=== PATIENT | female | born 1970 | race Caucasian/White ===

== ENCOUNTER 2021-11-03 18:14 | Emergency (ER) | payer BC, SELFPAY ==
[2021-11-03 18:24] VITALS: BP 168/107; PULSE 71; RESP 16; TEMP 36.4; O2SAT 100
--- NOTE | 2021-11-03 18:50 | ED.GENADULT ---
HPI - General Adult General Chief complaint: Nausea/Vomiting/Diarrhea Stated complaint: vomiting,nausea Source: patient Mode of arrival: ambulatory Limitations: no limitations History of Present Illness HPI narrative: Patient presents for evaluation of nausea and vomiting for the last 2 days. She states that she feels a bit dizzy while vomiting but denies dizziness otherwise. She denies any fever, chills, abdominal pain, urinary symptoms, respiratory symptoms, headache, body aches, diarrhea. No recent new foods or abx. No recent sick contacts to her knowledge. She has received a flu shot this year. No ETOH or illicit drug use. No additional complaints or concerns. She states that she simply would like an injection of medication to assist with nausea. She does not wish to have any tests or other interventions performed. Related Data Allergies Allergy/AdvReac Type Severity Reaction Status Date / Time prochlorperazine Allergy Intermediate facial Verified 11/03/21 18:31 [From Compazine] swelling Review of Systems Review of Systems: CONSTITUTIONAL: Denies fever, chills, or sweats. EYES: Denies visual changes, redness, or discharge. ENT: Denies rhinorrhea, congestion, sore throat, or otalgia. CARDIOVASCULAR: Denies chest pain, palpitations, or edema. RESPIRATORY: Denies cough or dyspnea. GASTROINTESTINAL: Reports nausea and vomiting. Denies abdominal pain or diarrhea. GENITOURINARY: Denies dysuria or hematuria. SKIN: Denies rash or itching. MUSCULOSKELETAL: Denies back pain, joint pain, or myalgia. NEUROLOGIC: Reports dizziness. Denies headache, numbness, or weakness. PSYCHIATRIC: Denies anxiety or depression. [facility] Past Medical History Medical History Connective tissue disease GERD (gastroesophageal reflux disease) Hypertension Psoriasis Sjogren's syndrome Surgical History Surgical History History of appendectomy Family History Family History Father , [place] 2018 Acute myocardial infarction Hypertension Mother Fibromyalgia Hypothyroidism Social History Social History Smoking status: Never smoker Alcohol intake: current Alcohol use details: less than 1 drink per week Substance use: never Living arrangements: with family Gender identity (if verbalized by the patient): Female Sexual Orientation (if Verbalized by the Patient): Straight or Heterosexual Spiritual care concerns: No Exam Narrative: GENERAL: Well-appearing, well-nourished, and in no acute distress. HEAD: Normocephalic, atraumatic. EYES: PERRLA and EOMI. ENT: Nares clear, no rhinorrhea or epistaxis. Mucous membranes moist. Oropharynx without tonsillar hypertrophy exudate or other lesions. Bilateral TMs pearly knox nonbulging NECK: Supple. No adenopathy or masses. No carotid bruits or JVD CHEST: Clear to auscultation. No respiratory distress. No wheezes rales or rhonchi HEART: Regular rate and rhythm. No murmur heard. Normal peripheral pulses. ABDOMEN: Soft, nontender, nondistended, normal active bowel sounds. EXTREMITIES: Normal range of motion. No edema. SKIN: Warm, dry, no rash. NEURO: No focal deficits. Alert and oriented x3. PSYCH: Normal mood and affect. Course Course Emergency Course: This is a 51-year-old female who present with complaints of nausea and vomiting. I offered to check influenza testing, which she declined. She not feel like she needed any other diagnostics performed. She was given an injection of Zofran. Her symptoms resolved. She was able to eat ice chips and requested dc papers. I did offer to send her to ER for lab studies, which she declined. She would like to go home. This seems reasonable as she appears quite well. We will have her follow up o
[2021-11-03] MEDS: ONDANSETRON INJ 4 MG/2 ML VIAL IM (19:03)
== END 2021-11-03 19:38 | disposition home or self-care (01) ==
PROVIDERS: Emergency Provider Nurse Practitioner; PCP Internal Medicine
DX: R11.2 Nausea with vomiting, unspecified (principal); K21.9 Gastro-esophageal reflux disease without esophagitis; I10 Essential (primary) hypertension; M35.00 Sjogren syndrome, unspecified; M35.9 Systemic involvement of connective tissue, unspecified
CPT/HCPCS: 96372; 99213; G0463; J2405

== ENCOUNTER 2021-11-04 10:19 | Inpatient (IN) | payer BC, SELFPAY ==
[2021-11-04] VITALS (12 sets, daily range): BP systolic 138–173; BP diastolic 88–126; PULSE 83–92; RESP 16–23; TEMP 35.9–36.4; O2SAT 97–100; BMI 43.0
--- NOTE | ~2021-11-04 | XR_ITS ---
XR chest 2V DATE: 11/07/2021 14:03 INDICATION: Shortness of breath TECHNIQUE: PA and lateral views COMPARISON: None FINDINGS: There is cardiomegaly. There is dominance of the minor and greater fissures, suggesting sub pleural edema. Subtle Lalo B-lines are suggested which may indicate pulmonary interstitial edema. There is minimal if any pleural effusion. No pulmonary infiltrate or consolidation. No pneumothorax. There is mild dextro scoliosis of the thoracic spine. Diffuse osteopenia. IMPRESSION: Cardiac megaly, mild pulmonary interstitial and subpleural edema Reviewed, dictated and finalized at location A.
--- NOTE | ~2021-11-04 | CT_ITS ---
EXAMINATION: CT brain wo con DATE: 11/07/2021 14:11 INDICATION: Hyponatremia. Dizziness. TECHNIQUE: Computed tomography (CT) of the head was performed without intravenous contrast. The mA wa s adjusted according to patient size. Iterative reconstruction technique was employed. The dose-lengt h product was 605.33 mGy-cm. COMPARISON: None FINDINGS: There is no intracranial hemorrhage, acute infarction, or abnormal intracranial mass lesion . The ventricles are normal in size. There is mild mucosal thickening in the ethmoid sinuses. There i s a small right mastoid effusion. The orbits are normal. IMPRESSION: 1. Normal brain. Reviewed, dictated and finalized at location A. IMPRESSION: 1. Normal brain.
--- NOTE | 2021-11-04 10:38 | ECG_ITS ---
Measurements Intervals [place] Rate: 82 P: 22 AL: 184 QRS: 7 QRSD: 98 T: 16 QT: 403 QTc: 473 Interpretive Statements SINUS RHYTHM NORMAL ECG NO PREVIOUS ECG AVAILABLE FOR COMPARISON Electronically Signed On 11-04-2021 15:44:05 CDT by Giovani Benson M.D.
[2021-11-04 11:08] LABS: Alanine Aminotransferase 26 U/L (4-35); Alkaline Phosphatase 85 U/L (38-126); Anion Gap 9 mmol/L (8-16); Aspartate Amino Transferase 48 U/L (14-36); Bilirubin,Total 1.5 mg/dL (0.2-1.3); Blood Urea Nitrogen 5 mg/dL (7-17); Calcium 7.5 mg/dL (8.4-10.2); Carbon Dioxide 19 mmol/L (22-30); Chloride 73 mmol/L (98-107); Estimated CRCL calculation 160 ml/min; Estimated Glomerular Filt Rate > 60; Glucose 106 mg/dL (65-110); Potassium 4.4 mmol/L (3.4-5.0); Sodium 101 mmol/L (137-145)
--- NOTE | 2021-11-04 13:05 | ED.RECABL ---
HPI - Recheck/Abnormal Lab/Rx General Chief Complaint: Recheck/Abnormal Lab/Rx Stated Complaint: high sodium level Time Seen by Provider: 11/04/21 12:30 Source: patient and RN notes reviewed Mode of arrival: ambulatory Limitations: no limitations History of Present Illness HPI narrative: This is a 51 year old female with history of hypertension, connective tissue disease, Sj?gren, obesity who presents for evaluation of hyponatremia. Patient was evaluated by her PCP on Thursday as routine check up and she has labs drawn. She denies nausea and vomiting on Thursday and she was evaluated in UC. Patient was prescribed antiemetic but she has continued to have nausea. She was called this morning by her PCP and she was told her sodium was 121. She was referred to ER for evaluation. She reports dizziness. She denies chest pain, cough, abdominal pain, fever or diarrhea. She reports having low sodium years ago and she was told it was due to some medications. Adjustments were made to her medication at that time and she has not had any issues since. Last bowel movement was 2 days ago. Related Data Allergies Allergy/AdvReac Type Severity Reaction Status Date / Time prochlorperazine Allergy Intermediate facial Verified 11/03/21 18:31 [From Compazine] swelling Review of Systems Review of Systems: All systems reviewed & are unremarkable except as noted in HPI and below PMFSH Past Medical History Medical History Connective tissue disease GERD (gastroesophageal reflux disease) Hypertension Psoriasis Sjogren's syndrome Surgical History Surgical History History of appendectomy Family History Family History Father , [place] 2018 Acute myocardial infarction Hypertension Mother Fibromyalgia Hypothyroidism Social History Social History Smoking status: Never smoker Alcohol intake: current Alcohol use details: less than 1 drink per week Substance use: never Gender identity (if verbalized by the patient): Female Sexual Orientation (if Verbalized by the Patient): Straight or Heterosexual Spiritual care concerns: No Exam Const: General: no acute distress and alert Orientation/consciousness: patient oriented x3 Eyes: EOM: EOMs intact bilaterally Resp: Effort & Inspection: normal respiratory effort and no retractions Auscultation: clear to auscultation bilaterally Cardio: Rate: regular rate Rhythm: regular rhythm Heart sounds: no murmurs GI: Inspection: distended GI Palp: Yes Soft to palpation, No Tenderness to palpation present (GI) and No Guarding due to palpation present (GI) Auscultation: normal bowel sounds Skin: General skin exam: normal color Other: petechial rash to extremities and abdomen Neuro: General: patient oriented x3, moves all extremities and CN's II-XI intact bilaterally Extrem: General: normal to inspection Psych: Mental Status: mental status grossly normal Affect: normal affect Course Reevaluation(s) Reevaluation #1: I discussed with patient that she will be admitted to hospital. Date: 11/04/21 Time: 15:00 Consultations Consultation #1: I discussed case with Dr. West who agrees to consult on patient. Date: 11/04/21 Time: 14:24 Consultation #2: I Discussed case with Bonnie verdugo who accepts patient to hospitalist service in IMU. Date: 11/04/21 Time: 14:30 Vital Signs Vital signs: Vital Signs Temperature 96.6 F L 11/04/21 10:39 Pulse Rate 83 11/04/21 10:39 Respiratory Rate 16 11/04/21 10:39 Blood Pressure 173/107 H 11/04/21 10:39 Pulse Oximetry 100 11/04/21 10:39 Temperature 96.6 F L 11/04/21 10:39 Pulse Rate 83 11/04/21 16:38 Respiratory Rate 23 H 11/04/21 16:38 Blood Pressure 173/1
[2021-11-04] MEDS: ONDANSETRON INJ 4 MG/2 ML VIAL IV PUSH ×2 (13:34→17:52)
[2021-11-04] MEDS: SODIUM CHLORIDE 0.9% IV 1,000 ML 999 ML IV CONT ×2 (13:35→15:36)
[2021-11-04 14:10] LABS: Basophils Percent Auto 0.4 % (0.2-1.2); Eosinophils Percent Auto 0.1 % (0-4.4); Hematocrit 28.3 % (37.0-47.0); Hemoglobin 11.1 g/dL (12.0-15.0); Immature Granulocyte Absolute 0.28 K/mm3 (0.00-0.031); Immature Granulocyte Percent A 3.7 % (0-0.5); Immature Platelet Fraction Pct 1.7 % (0.9-11.2); Lymphocytes Absolute Auto 0.42 K/mm3 (0.9-3.2); Lymphocytes Percent Auto 5.5 % (18.3-44.2); Mean Corpuscular HGB Conc 39.2 g/dl (32-36); Mean Corpuscular Volume 89.3 fl (80-100); Mean Platelet Volume 9.3 fl (7.4-10.4); Monocytes Absolute Auto 0.4 K/mm3 (0.1-0.6); Monocytes Percent Auto 5.1 % (2.6-8.5); Neutrophils Absolute Auto 6.5 K/mm3 (1.3-6.7); Neutrophils Percent Auto 85.2 % (45.5-73.1); Platelet Count Result 265 k/mm3 (150-375); Red Blood Count 3.17 M/mm3 (4.2-5.4); Red Cell Distribution Width 11.4 % (11.5-14.5); White Blood Count 7.7 K/mm3 (4.5-10.0)
[2021-11-04 14:18] LABS: Anion Gap 9 mmol/L (8-16); Blood Urea Nitrogen 5 mg/dL (7-17); Calcium 7.8 mg/dL (8.4-10.2); Carbon Dioxide 22 mmol/L (22-30); Chloride 71 mmol/L (98-107); Estimated CRCL calculation 131 ml/min; Estimated Glomerular Filt Rate > 60; Glucose 98 mg/dL (65-110); Lipase 211 U/L (23-300); Magnesium 1.6 mg/dL (1.6-2.3); Potassium 4.1 mmol/L (3.4-5.0); Sodium 102 mmol/L (137-145)
[2021-11-04 15:02] LABS: Appearance Urine Clear (Clear); Bilirubin Urine Negative (Negative); Blood Urine Trace-lysed (Negative); Color Urine Yellow (Yellow); Glucose Urine UA Negative (Negative); Ketones Urine 3+ mg/dL (Negative); Leukocyte Esterase Ur Negative LEU/UL (Negative); Nitrate Urine Negative (Negative); Protein Urine 1+ mg/dL (Negative); Squamous Epithelial Cell Urine Rare /hpf (Few); Urobilinogen Urine >=8.0 mg/dL (<2.0); WBC Urine 0-3 /hpf
[2021-11-04 15:04] LABS: Add Urine Microscopic? YES
[2021-11-04 15:18] LABS: Creatinine Urine 39.5 mg/dL
[2021-11-04 15:19] LABS: Sodium Urine Random 96 meq/L
--- NOTE | 2021-11-04 16:00 | PM.IMHP ---
H&P: HPI History of Present Illness Date/Time: 11/04/21 16:00 Chief Complaint: Low sodium level. Narrative: This is a 51-year-old female with Sjogren syndrome, connective tissue disease, hypertension, depression, and history of alcohol abuse who presented to the emergency department via private vehicle for evaluation after she was found to have a low sodium level on labs drawn last Thursday. She moved here from [place] in the last several weeks and had a new patient appointment with Felipa Bernard NP on October 30. At that appointment she mentioned having nausea and emesis once a day, nearly every day for at least 3 to 6 months. Several labs were drawn at that time and she received a phone call today that her sodium level was low (121) and she was told to come to the ER where her sodium level was confirmed to be 101. She was hospitalized several years ago with hyponatremia which was felt to be due to ?a combination of medications? and with adjustments that reportedly normalized. Both the patient and her have noticed that she has seemed a little confused the last several days and seems to be processing information more slowly than usual. She continues to have intermittent nausea but she has not vomited today though she attributes that to Zofran which she received yesterday when she went to urgent care (at which time it should be noted that she declined further workup, including labs). Due to her Sjogren's she drinks at least 15, 8 oz glasses of water a day and she even gets up at night to drink water. She has a history of alcoholism and has had periods of sobriety up to nearly 10 years though she admits that within the last several weeks she has been drinking up to 12 [place] a day. Additionally she has not been eating much due to her nausea and probably due to excess calories that she is getting in her alcohol. She has been on venlafaxine for many years though her dose was increased from 75 mg to 150 mg about a week ago. At the time my evaluation she has no specific complaints aside from the fact that she is thirsty. Review of Systems Review of Systems: Twelve systems were reviewed. Patient reports the history of seizure many years ago, last being about 6 to 7 years ago. Apparently she was on anti seizure medications in the past; she denies that they were related to alcohol withdrawal. She does have a history of alcohol withdrawal symptoms however to include tremors, sweats, and mild confusion however she has not had any of those over the last 2 days, with her last drink being 2 days ago on Thursday. No fever, chills, or sweats. No recent cold or flu symptoms. She has noticed a mild decrease in urine output. She has been getting a bit lightheaded, especially with position changes last couple of days. No dysuria. No diarrhea. No dark stools. Patient has likely sleep apnea with heavy snoring and witnessed apneic episodes as well as daytime somnolence. She is set up for a sleep study in the coming weeks. No myalgias or arthralgias. She denies rash however was noted to have petechiae and coalescing petechiae on the lower legs which she states has been an issue for her off and on over the years and she was told that is related to her autoimmune disease. Except as documented, all other systems were reviewed and are negative. [facility] Past Medical History Medical History (Updated 11/04/21 @ 21:10 by Bonnie Munguia PA-C) Alcohol abuse Connective tissue disease Gastroesophageal reflux disease Hypertension Psoriasis Sjogren's syndrome Suspected sleep apnea Surgical History Surgical History History of appendectomy Family History Family History Father , 2017 Acute myocardial infarction Hypertension Mother Fibromyalgia Hypothyroidism Social History Social History (Updated 11/04/21 @ 20:55 by Bonnie Munguia PA-C) Social
--- NOTE | 2021-11-04 16:55 | PC.NURSE ---
This patient, Meri Vincent, was admitted to IMU status, and placed in Intensive Care Unit-6. Patient/family oriented to hospital policies and general routines including ID bracelet, bed and alarms, visiting hours, pain management, procedures, bathroom and other care routines, personal items, smoking policy, room service/diet, and visiting hours. Valuables list has been completed. Information on how to activate the Rapid Response Team has been discussed. Patient/Family are encouraged to report perceived risks to care and to ask questions if they do not understand what they are told or what they should do.
--- NOTE | 2021-11-04 16:56 | PM.CNNEP ---
Assessment and Plan Assessment and plan (1) Hyponatremia: Code(s): E87.1 - Hypo-osmolality and hyponatremia Status: Acute Assessment and Plan: acute versus acute on chronic?? follow serum sodium levels follow-up on urine electrolytes as well as urine/serum osmolality check TSH and cortisol as well as SPE/UPE suspect will eventually need free water restriction depending on trend of sodium, suspect use/need for 3% saline goal of therapy is a rate of change of 4 - 6 mmol/L in 24 hours (but not to exceed 8mmol/L) follow mentation/neurological status closely (2) Nausea & vomiting: Code(s): R11.2 - Nausea with vomiting, unspecified Status: Acute Assessment and Plan: secondary to #1(?) treat supportively (3) Hypertension: Code(s): I10 - Essential (primary) hypertension Status: Chronic Assessment and Plan: resume home medications follow trend Will continue to follow. History of Present Illness Reason for Consult Consult date: 11/04/21 Reason for consult: hyponatremia Chief Complaint Chief complaint: Dehydration, Hyponatremia History of Present Illness Narrative: The patient is a 51-year-old female with a past medical history as outlined below who presented to [facility] Emergency room for further evaluation of hyponatremia in association with nausea and vomiting. The patient recently established care with a new primary care physician since she moved to this area several weeks ago. During that office visit, she men's [place] and persistent nausea and vomiting for the last 3 - 6 months without a clear etiology. Routine blood tests were drawn on that office visit and the patient received a phone call today stating that her sodium level was low at 121 millimoles per L and she was instructed to come to the ER for further evaluation. Upon presentation to the emergency room, the patient was otherwise hemodynamically stable and repeat labs were drawn which showed her sodium level to be at 101 mmol/L. Presumably, her symptoms of nausea and vomiting for last several months related to her ongoing hyponatremia although it is not entirely clear. Upon further questioning, the patient states that she had an episode of hyponatremia similar to this approximately 4 years ago that was blamed on a combination of medications that she was taking which apparently stabilized with better management of her chronic medications. Along with the a for mentioned nausea and vomiting, the patient states that she has noticed herself to be a little bit more confused and somewhat delayed and processing simple things that she should be able to do without any issues or problems in general. Further complicating matters is that she is a heavy water drinker as due to her situation syndrome, she always feels her mouth to be somewhat dry. She also has a history of alcohol abuse and had been sober for 10 years but in the last few weeks has been drinking quite heavily. This is further complicated by the fact that she has not been eating much either. Other risk factors for hyponatremia include the use of an SSRI which was recently increased about a week ago as well. In spite of the severe hyponatremia, she otherwise appears to be neurologically intact and in no acute distress. Given this laboratory abnormality, she was admitted to the hospital for further evaluation and treatment Renal consultation was requested due to her severe hyponatremia. As mentioned, and as noted above, she has multiple risk factors for hyponatremia included excess free water intake, recent alcohol intake, increased dose of an SSRI, possibly complicated by volume depletion/ dehydration. She did receive a couple of L of IV fluids in the emergency room but subsequent Sodium testing has showed minimal improvement despite this intervention. I am not entirely clear what occurred approximately 4 years ago that caused her hyponatremia b
[2021-11-04 17:29] LABS: Creatinine Urine 32.7 mg/dL
[2021-11-04 17:51] LABS: Glucose Point of Care 91 mg/dl (65-105)
[2021-11-04] MEDS: SODIUM CHLORIDE 0.9% IV 1,000 ML 125 ML IV CONT (17:52)
[2021-11-04 18:57] LABS: Sodium 103 mmol/L (137-145)
[2021-11-04 19:50] LABS: Glucose Point of Care 109 mg/dl (65-105)
[2021-11-04 20:04] LABS: Sodium 102 mmol/L (137-145)
--- NOTE | 2021-11-04 20:23 | PC.NURSE ---
Faxed request for medical records to [facility], [facility]. .
[2021-11-04] MEDS: chlordiazePOXIDE (*CRX) 25 MG CAPSULE PO (20:57)
[2021-11-04 21:03] LABS: Hemoglobin A1C 4.7 % (<5.7)
[2021-11-04] MEDS: SALIVA SUBSTITUTE COMBO RINSE 237 ML BOTTLE 15 ML PO (21:06)
[2021-11-04] MEDS: ACETAMINOPHEN 325 MG TABLET 650 MG PO (21:41)
[2021-11-04] MEDS: METOPROLOL SUCCINATE EXT REL 100 MG TABCR PO (21:42)
[2021-11-04] MEDS: LOSARTAN POTASSIUM 100 MG TABLET PO (21:42)
[2021-11-04] MEDS: THIAMINE HCL 200 MG/2 ML VIAL 100 MG IV PUSH (21:42)
[2021-11-04 22:35] LABS: Sodium 104 mmol/L (137-145)
[2021-11-04 22:37] LABS: INR 1.2; Prothrombin Time 14.8 Seconds (11.1-14.7)
[2021-11-04 22:38] LABS: Partial Thromboplastin Time 32.5 SECONDS (22.3-36.8)
[2021-11-05] VITALS (18 sets, daily range): BP systolic 132–159; BP diastolic 89–108; PULSE 68–90; RESP 14–18; TEMP 35.8–36.8; O2SAT 97–100
[2021-11-05] MEDS: ONDANSETRON INJ 4 MG/2 ML VIAL IV PUSH (00:49)
[2021-11-05] MEDS: LORazepam INJ (*CRX) 2 MG/ML VIAL 1 MG IV PUSH ×3 (00:50→21:27)
[2021-11-05 01:24] LABS: Sodium 104 mmol/L (137-145)
[2021-11-05 04:41] LABS: Basophils Percent Auto 0.4 % (0.2-1.2); Eosinophils Percent Auto 0.4 % (0-4.4); Hematocrit 28.8 % (37.0-47.0); Hemoglobin 11.2 g/dL (12.0-15.0); Immature Granulocyte Absolute 0.13 K/mm3 (0.00-0.031); Immature Granulocyte Percent A 1.7 % (0-0.5); Lymphocytes Absolute Auto 0.41 K/mm3 (0.9-3.2); Lymphocytes Percent Auto 5.4 % (18.3-44.2); Mean Corpuscular Hemoglobin 34.7 pg (26-34); Mean Corpuscular Volume 89.2 fl (80-100); Mean Platelet Volume 8.8 fl (7.4-10.4); Monocytes Absolute Auto 0.4 K/mm3 (0.1-0.6); Monocytes Percent Auto 5.8 % (2.6-8.5); Neutrophils Absolute Auto 6.5 K/mm3 (1.3-6.7); Neutrophils Percent Auto 86.3 % (45.5-73.1); Platelet Count Result 224 k/mm3 (150-375); Red Blood Count 3.23 M/mm3 (4.2-5.4); Red Cell Distribution Width 11.3 % (11.5-14.5); White Blood Count 7.6 K/mm3 (4.5-10.0)
[2021-11-05] MEDS: chlordiazePOXIDE (*CRX) 25 MG CAPSULE PO (05:06)
[2021-11-05 05:10] LABS: Alanine Aminotransferase 24 U/L (4-35); Albumin Level 3.4 g/dL (3.5-5.1); Alkaline Phosphatase 80 U/L (38-126); Anion Gap 7 mmol/L (8-16); Aspartate Amino Transferase 44 U/L (14-36); Bilirubin,Total 1.6 mg/dL (0.2-1.3); Blood Urea Nitrogen 5 mg/dL (7-17); Calcium 7.1 mg/dL (8.4-10.2); Carbon Dioxide 21 mmol/L (22-30); Chloride 77 mmol/L (98-107); Estimated CRCL calculation 133 ml/min; Estimated Glomerular Filt Rate > 60; Glucose 88 mg/dL (65-110); Magnesium 1.7 mg/dL (1.6-2.3); Phosphorus 2.3 mg/dL (2.5-4.5); Potassium 3.5 mmol/L (3.4-5.0); Sodium 105 mmol/L (137-145)
[2021-11-05 05:57] LABS: Mean Corpuscular HGB Conc 38.9 g/dl (32-36)
[2021-11-05 07:33] LABS: Sodium 105 mmol/L (137-145)
[2021-11-05] MEDS: SODIUM CHLORIDE 3% 500 ML 75 ML IV CONT (08:52)
[2021-11-05] MEDS: THIAMINE HCL 100 MG TABLET PO (08:56)
[2021-11-05] MEDS: METOPROLOL SUCCINATE EXT REL 100 MG TABCR PO (08:57)
[2021-11-05] MEDS: FOLIC ACID 1 MG TABLET PO (08:57)
[2021-11-05] MEDS: PANTOPRAZOLE 40 MG TABLET PO (08:57)
[2021-11-05] MEDS: LOSARTAN POTASSIUM 100 MG TABLET PO (08:58)
--- NOTE | 2021-11-05 11:49 | PM.PNNEP ---
Progress Note: A&P Assessment and Plan (1) Hyponatremia: Code(s): E87.1 - Hypo-osmolality and hyponatremia Status: Acute Assessment and Plan: acute versus acute on chronic?? multifactorial etiology: excessive free water intake (constant dry mouth from Sjogren's syndrome) relapse on alcohol intake/alcoholism SSRI use (venlafaxine dose was recently increased) previous history follow serum sodium levels urine electrolytes non-prerenal TSH okay; cortisol lowish - check stimulation test follow-up on urine/serum osmolality as well as SPE/UPE start free water restriction use 3% saline PRN to help improve sodium level goal of therapy is a rate of change of 4 - 6 mmol/L in 24 hours (but not to exceed 8mmol/L) - being achieved so far follow mentation/neurological status closely (2) Nausea & vomiting: Code(s): R11.2 - Nausea with vomiting, unspecified Status: Resolved Assessment and Plan: secondary to #1(?) treat supportively (3) Hypertension: Code(s): I10 - Essential (primary) hypertension Status: Chronic Assessment and Plan: resume home medications follow trend Will continue to follow. Subjective Date/time seen: 11/05/21 11:49 Slow improvement in sodium with current interventions; no apparent distress voiced at the time of my visit; no issues/events overnight or earlier this AM. Exam Narrative: General: WD/WN female in NAD Heart: normal S1 and S2; no rub Lungs: clear to auscultation Abdomen: soft, nontender, nondistended, positive bowel sounds Extremities: no cyanosis or clubbing; no edema Skin: warm and dry Objective Data Vital Signs Vital Signs: Vital Signs Temp Pulse Pulse Resp BP Pulse Ox 11/05/21 10:00 68 11/05/21 08:57 76 11/05/21 08:00 36.4 C 73 76 14 148/96 H 100 11/05/21 06:26 75 11/05/21 05:37 78 16 158/99 H 99 11/05/21 05:10 158/89 H 11/05/21 04:00 36.7 C 77 77 16 132/89 100 11/05/21 02:00 77 11/05/21 01:19 80 14 159/104 H 99 11/05/21 00:38 90 11/05/21 00:00 36.8 C 78 78 14 155/106 H 100 11/04/21 22:05 88 138/102 H 97 11/04/21 22:00 88 11/04/21 21:42 90 11/04/21 21:30 89 171/88 H 11/04/21 20:00 85 11/04/21 19:54 36.4 C L 86 18 162/108 H 100 11/04/21 19:35 87 162/108 H 11/04/21 18:00 86 20 158/104 H 99 11/04/21 17:10 92 16 155/126 H 97 11/04/21 16:38 83 23 H 173/118 H 100 11/04/21 15:57 83 18 156/104 H 100 Intake/Output Intake/Output: Intake & Output 11/02/21 11/03/21 11/04/21 11/05/21 23:59 23:59 23:59 23:59 Intake Total 2220 948 Output Total 1050 1350 Balance 1170 -402 Meds/Results Medications: Active Medications Generic Name Dose Route Start Last Admin Trade Name Freq PRN Reason Stop Dose Admin Acetaminophen 650 mg 11/04/21 21:27 11/04/21 21:41 Acetaminophen 325 Mg Tablet PO 650 mg Q6H PRN Administration Mild Pain (1-3) or Fever Chlordiazepoxide HCl 25 mg 11/04/21 20:34 11/05/21 05:06 Chlordiazepoxide (*Crx) 25 Mg Capsule PO 25 mg Q8H PRN Administration Alcohol withdrawal symptoms Folic Acid 1 mg 11/05/21 09:00 11/05/21 08:57 Folic Acid 1 Mg Tablet PO 1 mg DAILY ZULMA Administration Lorazepam 1 mg 11/04/21 21:25 11/05/21 00:50 Lorazepam Inj (*Crx) 2 Mg/Ml Vial IV PUSH 1 mg Q6H PRN Administration Alcohol withdrawal and CIWA >7 Losartan Potassium 100 mg 11/05/21 09:00 11/05/21 08:58 Losartan Potassium 100 Mg Tablet PO 100 mg DAILY ZULMA Administration Metoprolol Succinate 100 mg 11/05/21 09:00 11/05/21 08:57 Metoprolol Succinate Ext Rel 100 Mg Tabcr PO 100 mg DAILY ZULMA Administration Ondansetron HCl 4 mg 11/04/21 14:58 11/05/21 00:49 Ondansetron Inj 4 Mg/2 Ml Vial IV PUSH 4 mg Q4H PRN Administration Nausea Pantoprazole Sodium 40 mg
[2021-11-05 13:24] LABS: Sodium 107 mmol/L (137-145)
--- NOTE | 2021-11-05 14:16 | PM.IMPN ---
Progress Note: A&P Assessment and Plan (1) Hyponatremia: Code(s): E87.1 - Hypo-osmolality and hyponatremia Status: Acute Assessment and Plan: Most likely multifactorial in etiology, making this a bit more complicated. She has been on venlafaxine for many years however her dose was recently doubled. maybe medication related pt also drinks 12 claws a day, continue to monitor sodium levels, Pt is on 3 % ns, nephrology rounding see recommendations (2) Nausea & vomiting: Code(s): R11.2 - Nausea with vomiting, unspecified Status: Resolved Assessment and Plan: Resolved (3) Alcohol abuse: Code(s): F10.10 - Alcohol abuse, uncomplicated Status: Acute Assessment and Plan: Initiate CIWA protocol. (4) Ketosis: Code(s): E88.89 - Other specified metabolic disorders Status: Resolved Assessment and Plan: with fluid hydration (5) Hypertension: Code(s): I10 - Essential (primary) hypertension Status: Chronic Assessment and Plan: bp slightly high, continue losartan and metoprolol and monitor closely (6) Petechial rash: Code(s): R23.3 - Spontaneous ecchymoses Status: Acute Assessment and Plan: Patient reports that this has been present intermittently off and on for many years and she was previously told it was related to her connective tissue disease. Platelet count is 224 continue to monitor. pt states it is a chronic rash Subjective Date/time seen: 11/05/21 14:16 Interval history: 51-year-old female with Sjogren syndrome, connective tissue disease, hypertension, depression, and history of alcohol abuse who presented to the emergency department via private vehicle for evaluation after she was found to have a low sodium level on labs drawn last Thursday. Sodium was 101 on admission, pt is on 3 % Ns -nephrology is rounding. sodium improved to 107 now. Pt complains of not being able to sleep and swelling in her abdomen and face. Pt is a drinker of 12 White Claws a day. 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 Review of Systems Review of Systems: All systems reviewed & are unremarkable except as noted in HPI and below Exam Const: General: cooperative Nutritional Appearance: edematous (swollen face and abdomen ) and other Orientation/consciousness: oriented to person HENMT: Head: normal to inspection Resp: Effort & Inspection: no respiratory distress Auscultation: no rhonchi and no wheezes Cardio: Rate: regular rate Rhythm: regular rhythm GI: Inspection: normal to inspection GI Palp: No abdominal tenderness, No Guarding due to palpation present (GI) and No Hepatomegaly present Auscultation: normal bowel sounds Neuro: General: oriented to person Objective Data Vital Signs Vital Signs: Vital Signs - 24 hr 11/04/21 15:57 11/04/21 16:38 11/04/21 17:10 Temperature Pulse Rate 83 83 92 Pulse Rate [Monitor] Respiratory Rate 18 23 H 16 Blood Pressure 156/104 H 173/118 H 155/126 H Pulse Oximetry 100 100 97 11/04/21 18:00 11/04/21 19:35 11/04/21 19:54 Temperature 36.4 C L Pulse Rate 86 86 Pulse Rate [Monitor] 87 Respiratory Rate 20 18 Blood Pressure 158/104 H 162/108 H 162/108 H Pulse Oximetry 99 100 11/04/21 20:00 11/04/21 21:30 11/04/21 21:42 Temperature Pulse Rate 85 90 Pulse Rate [Monitor] 89 Respiratory Rate Blood Pressure 171/88 H Pulse Oximetry 11/04/21 22:00 11/04/21 22:05 11/05/21 00:00 Temperature 36.8 C Pulse Rate 88 88 78 Pulse Rate [Monitor] 78 Respiratory Rate 14 Blood Pressure 138/102 H 155/106 H Pulse Oximetry 97 100 11/05/21 00:38 11/05/21 01:19 11/05/21 02:00 Temperature Pulse Rate 80 77 Pulse Rate [Monitor] 90 Respiratory Rate 14 Blood Pressure 159/104 H Pulse Oximetry 99 11/05/21 04:00 11/05/21 05:10 11/05/21 05:37 T
[2021-11-05] MEDS: ACETAMINOPHEN 325 MG TABLET 650 MG PO (14:38)
[2021-11-05 17:25] LABS: Sodium 108 mmol/L (137-145)
[2021-11-05] MEDS: SALIVA SUBSTITUTE COMBO RINSE 237 ML BOTTLE 15 ML PO (21:28)
[2021-11-05 21:33] LABS: Sodium 108 mmol/L (137-145)
[2021-11-06] VITALS (15 sets, daily range): BP systolic 121–152; BP diastolic 74–107; PULSE 71–85; RESP 14–17; TEMP 35.7–36.8; O2SAT 9–100
[2021-11-06 04:26] LABS: Hemoglobin 11.4 g/dL (12.0-15.0); Mean Corpuscular Hemoglobin 34.2 pg (26-34); Mean Corpuscular Volume 90.1 fl (80-100); Mean Platelet Volume 8.7 fl (7.4-10.4); Platelet Count Result 212 k/mm3 (150-375); Red Blood Count 3.33 M/mm3 (4.2-5.4); Red Cell Distribution Width 11.2 % (11.5-14.5); White Blood Count 6.2 K/mm3 (4.5-10.0)
[2021-11-06 04:53] LABS: Anion Gap 5 mmol/L (8-16); Blood Urea Nitrogen 6 mg/dL (7-17); Calcium 7.2 mg/dL (8.4-10.2); Carbon Dioxide 23 mmol/L (22-30); Chloride 83 mmol/L (98-107); Estimated CRCL calculation 133 ml/min; Estimated Glomerular Filt Rate > 60; Glucose 95 mg/dL (65-110); Potassium 3.7 mmol/L (3.4-5.0); Sodium 111 mmol/L (137-145)
[2021-11-06] MEDS: PANTOPRAZOLE 40 MG TABLET PO (08:59)
[2021-11-06] MEDS: LOSARTAN POTASSIUM 100 MG TABLET PO (08:59)
[2021-11-06] MEDS: THIAMINE HCL 100 MG TABLET PO (08:59)
[2021-11-06] MEDS: METOPROLOL SUCCINATE EXT REL 100 MG TABCR PO (08:59)
[2021-11-06] MEDS: FOLIC ACID 1 MG TABLET PO (08:59)
[2021-11-06] MEDS: SALIVA SUBSTITUTE COMBO RINSE 237 ML BOTTLE 15 ML PO ×2 (09:00→18:44)
[2021-11-06] MEDS: ACETAMINOPHEN 325 MG TABLET 650 MG PO ×3 (09:02→21:25)
[2021-11-06] MEDS: chlordiazePOXIDE (*CRX) 25 MG CAPSULE PO ×2 (09:02→16:25)
[2021-11-06 10:19] LABS: Sodium 110 mmol/L (137-145)
[2021-11-06] MEDS: SODIUM CHLORIDE 3% 500 ML 85 ML IV CONT (10:57)
[2021-11-06 15:24] LABS: Sodium 114 mmol/L (137-145)
--- NOTE | 2021-11-06 16:34 | PM.PNNEP ---
Progress Note: A&P Assessment and Plan (1) Hyponatremia: Code(s): E87.1 - Hypo-osmolality and hyponatremia Status: Acute Assessment and Plan: acute versus acute on chronic?? multifactorial etiology: excessive free water intake (constant dry mouth from Sjogren's syndrome) relapse on alcohol intake/alcoholism SSRI use (venlafaxine dose was recently increased) previous history follow serum sodium levels urine electrolytes non-prerenal TSH okay; cortisol lowish - check stimulation test follow-up on urine/serum osmolality as well as SPE/UPE start free water restriction use 3% saline PRN to help improve sodium level goal of therapy is a rate of change of 4 - 6 mmol/L in 24 hours (but not to exceed 8mmol/L) - being achieved so far follow mentation/neurological status closely (2) Nausea & vomiting: Code(s): R11.2 - Nausea with vomiting, unspecified Status: Resolved Assessment and Plan: secondary to #1(?) treat supportively (3) Hypertension: Code(s): I10 - Essential (primary) hypertension Status: Chronic Assessment and Plan: resume home medications follow trend Will continue to follow. Subjective Date/time seen: 11/06/21 16:34 Appears to be doing reasonably well at this time; sodium level is slowly improving with interventions to date (fluid restriction and 3% saline infusions); no acute complaints voiced. Exam Narrative: General: WD/WN female in NAD Heart: normal S1 and S2; no rub Lungs: clear to auscultation Abdomen: soft, nontender, nondistended, positive bowel sounds Extremities: no cyanosis or clubbing; no edema Skin: warm and intact Objective Data Vital Signs Vital Signs: Vital Signs Temp Pulse Pulse Resp BP Pulse Ox 11/06/21 12:00 36.6 C 74 74 14 141/85 H 99 11/06/21 10:00 72 11/06/21 08:59 76 11/06/21 08:00 80 74 17 152/98 H 100 11/06/21 07:51 95 11/06/21 07:29 36.6 C 78 17 121/107 H 11/06/21 06:00 78 11/06/21 04:00 36.0 C L 73 73 15 128/90 9 L 11/06/21 02:00 71 04/13/22 00:00 35.7 C L 71 71 14 146/105 H 100 11/05/21 22:00 74 11/05/21 20:00 35.8 C L 76 18 147/97 H 97 11/05/21 18:00 75 Intake/Output Intake/Output: Intake & Output 11/03/21 11/04/21 11/05/21 11/06/21 23:59 23:59 23:59 23:59 Intake Total 2220 1913 1230 Output Total 1050 1800 800 Balance 1170 113 430 Meds/Results Medications: Active Medications Generic Name Dose Route Start Last Admin Trade Name Freq PRN Reason Stop Dose Admin Acetaminophen 650 mg 11/04/21 21:27 11/06/21 16:23 Acetaminophen 325 Mg Tablet PO 650 mg Q6H PRN Administration Mild Pain (1-3) or Fever Chlordiazepoxide HCl 25 mg 11/04/21 20:34 11/06/21 16:25 Chlordiazepoxide (*Crx) 25 Mg Capsule PO 25 mg Q8H PRN Administration Alcohol withdrawal symptoms Folic Acid 1 mg 11/05/21 09:00 11/06/21 08:59 Folic Acid 1 Mg Tablet PO 1 mg DAILY ZULMA Administration Lorazepam 1 mg 11/04/21 21:25 11/05/21 21:27 Lorazepam Inj (*Crx) 2 Mg/Ml Vial IV PUSH 1 mg Q6H PRN Administration Alcohol withdrawal and CIWA >7 Losartan Potassium 100 mg 11/05/21 09:00 11/06/21 08:59 Losartan Potassium 100 Mg Tablet PO 100 mg DAILY ZULMA Administration Metoprolol Succinate 100 mg 11/05/21 09:00 11/06/21 08:59 Metoprolol Succinate Ext Rel 100 Mg Tabcr PO 100 mg DAILY ZULMA Administration Ondansetron HCl 4 mg 11/04/21 14:58 11/05/21 00:49 Ondansetron Inj 4 Mg/2 Ml Vial IV PUSH 4 mg Q4H PRN Administration Nausea Pantoprazole Sodium 40 mg 11/05/21 09:00 11/06/21 08:59 Pantoprazole 40 Mg Tablet PO 40 mg QAM ZULMA Administration Saliva Substitute 15 ml 11/04/21 20:34 11/06/21 09:00 Saliva Substitute Combo Rinse 237 Ml Bottle PO 15 ml QID PRN Administration Dry Mouth Thiamine HCl 100 mg
--- NOTE | 2021-11-06 16:34 | P.PNNP_ITS ---
Progress Note: A&P Assessment and Plan (1) Hyponatremia: Code(s): E87.1 - Hypo-osmolality and hyponatremia Status: Acute Assessment and Plan: * acute versus acute on chronic?? * multifactorial etiology: * excessive free water intake (constant dry mouth from Sjogren's syndrome) * relapse on alcohol intake/alcoholism * SSRI use (venlafaxine dose was recently increased) * previous history * follow serum sodium levels * urine electrolytes non-prerenal * TSH okay; cortisol lowish - check stimulation test * follow-up on urine/serum osmolality as well as SPE/UPE * start free water restriction * use 3% saline PRN to help improve sodium level * goal of therapy is a rate of change of 4 - 6 mmol/L in 24 hours (but not to exceed 8mmol/L) - being achieved so far * follow mentation/neurological status closely (2) Nausea & vomiting: Code(s): R11.2 - Nausea with vomiting, unspecified Status: Resolved Assessment and Plan: * secondary to #1(?) * treat supportively (3) Hypertension: Code(s): I10 - Essential (primary) hypertension Status: Chronic Assessment and Plan: * resume home medications * follow trend Will continue to follow. Subjective Date/time seen: 11/06/21 16:34 Appears to be doing reasonably well at this time; sodium level is slowly improving with interventions to date (fluid restriction and 3% saline infusions); no acute complaints voiced. Exam Narrative: General: WD/WN female in NAD Heart: normal S1 and S2; no rub Lungs: clear to auscultation Abdomen: soft, nontender, nondistended, positive bowel sounds Extremities: no cyanosis or clubbing; no edema Skin: warm and intact Objective Data Vital Signs Vital Signs: Vital Signs Temp Pulse Pulse Resp BP Pulse Ox 11/06/21 12:00 36.6 C 74 74 14 141/85 H 99 11/06/21 10:00 72 11/06/21 08:59 76 11/06/21 08:00 80 74 17 152/98 H 100 11/06/21 07:51 95 11/06/21 07:29 36.6 C 78 17 121/107 H 11/06/21 06:00 78 11/06/21 04:00 36.0 C L 73 73 15 128/90 9 L 11/06/21 02:00 71 11/06/21 00:00 35.7 C L 71 71 14 146/105 H 100 11/05/21 22:00 74 11/05/21 20:00 35.8 C L 76 18 147/97 H 97 11/05/21 18:00 75 Intake/Output Intake/Output: Intake & Output 11/03/21 11/04/21 11/05/21 11/06/21 23:59 23:59 23:59 23:59 Intake Total 2220 1913 1230 Output Total 1050 1800 800 Balance 1170 113 430 Meds/Results Medications: Active Medications Generic Name Dose Route Start Last Admin Trade Name Freq PRN Reason Stop Dose Admin Acetaminophen 650 mg 11/04/21 21:27 11/06/21 16:23 Acetaminophen 325 Mg Tablet PO 650 mg Q6H PRN Administration Mild Pain (1-3) or Fever Chlordiazepoxide HCl 25 mg 11/04/21 20:34 11/06/21 16:25 Chlordiazepoxide (*Crx) 25 Mg Capsule PO 25 mg Q8H PRN Administration Alcohol withdrawal symptoms Folic Acid 1 mg 11/05/21 09:00 11/06/21 08:59 Folic Acid 1 Mg Tablet PO 1 mg DAILY ZULMA Administration Lorazepam 1 mg 11/04/21 21:25 11/05/21 21:27 Lorazepam Inj (*Crx) 2 Mg/Ml Vial IV PU
--- NOTE | 2021-11-06 16:55 | PM.IMPN ---
Progress Note: A&P Assessment and Plan (1) Hyponatremia: Code(s): E87.1 - Hypo-osmolality and hyponatremia Status: Acute Assessment and Plan: Most likely multifactorial in etiology, making this a bit more complicated. She has been on venlafaxine for many years however her dose was recently doubled. maybe medication related pt also drinks 12 claws a day, continue to monitor sodium levels, Pt is on 3 % ns, nephrology rounding see recommendations Sodium improved to 114 pt keen to go home explained sodium correction is a slower process (2) Nausea & vomiting: Code(s): R11.2 - Nausea with vomiting, unspecified Status: Resolved Assessment and Plan: Resolved (3) Alcohol abuse: Code(s): F10.10 - Alcohol abuse, uncomplicated Status: Acute Assessment and Plan: Initiate CIWA protocol. Librium ordered prn (4) Ketosis: Code(s): E88.89 - Other specified metabolic disorders Status: Resolved Assessment and Plan: With fluid hydration (5) Hypertension: Code(s): I10 - Essential (primary) hypertension Status: Chronic Assessment and Plan: bp slightly high, continue losartan and metoprolol and monitor closely (6) Petechial rash: Code(s): R23.3 - Spontaneous ecchymoses Status: Acute Assessment and Plan: Patient reports that this has been present intermittently off and on for many years and she was previously told it was related to her connective tissue disease. Platelet count is 212 continue to monitor. pt states it is a chronic rash (7) Depression: Qualifiers: Depression Type: unspecified Qualified Code(s): F32.A - Depression, unspecified Code(s): F32.A - Depression, unspecified Status: Acute Assessment and Plan: Venlafaxine stopped, Pt feeling anxious ativan ordered prn Subjective Date/time seen: 11/06/21 16:55 Interval history: 51-year-old female with Sjogren syndrome, connective tissue disease, hypertension, depression, and history of alcohol abuse who presented to the emergency department via private vehicle for evaluation after she was found to have a low sodium level on labs drawn last Thursday. Sodium was 101 on admission, pt is on 3 % Ns -nephrology is rounding. sodium improved to 107 now. Pt complains of not being able to sleep and swelling in her abdomen and face. Pt is a drinker of 12 White Claws a day. 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 11/06/2021 Pt is due to complete her 3% Ns infusion today sodium has improved to 114. continue to watch. Pt has no specific complaints swelling has improved. in the room explained 's medical problems and current treatments Review of Systems Review of Systems: All systems reviewed & are unremarkable except as noted in HPI and below Exam Const: General: cooperative Nutritional Appearance: other Orientation/consciousness: oriented to person HENMT: Head: normal to inspection Resp: Effort & Inspection: no respiratory distress Auscultation: no rhonchi and no wheezes Cardio: Rate: regular rate Rhythm: regular rhythm GI: Inspection: normal to inspection Auscultation: normal bowel sounds Neuro: General: oriented to person Objective Data Vital Signs Vital Signs: Vital Signs - 24 hr 11/05/21 18:00 11/05/21 20:00 11/05/21 22:00 Temperature 35.8 C L Pulse Rate 75 76 74 Pulse Rate [Monitor] Respiratory Rate 18 Blood Pressure 147/97 H Pulse Oximetry 97 11/06/21 00:00 11/06/21 02:00 11/06/21 04:00 Temperature 35.7 C L 36.0 C L Pulse Rate 71 71 73 Pulse Rate [Monitor] 71 73 Respiratory Rate 14 15 Blood Pressure 146/105 H 128/90 Pulse Oximetry 100 9 L 11/06/21 06:00 11/06/21 07:29 11/06/21 07:51 Temperature 36.6 C Pulse Rate 78 78 Pulse Rate [Monitor] Respiratory Rate 17 Blood Pressure
[2021-11-06 21:51] LABS: Sodium 115 mmol/L (137-145)
[2021-11-07] VITALS (14 sets, daily range): BP systolic 128–141; BP diastolic 80–97; PULSE 71–87; RESP 12–16; TEMP 36.4–37.1; O2SAT 96–99
[2021-11-07] MEDS: COSYNTROPIN 0.25 MG/ML VIAL IV PUSH (05:04)
[2021-11-07 05:36] LABS: Anion Gap 4 mmol/L (8-16); Blood Urea Nitrogen 4 mg/dL (7-17); Calcium 7.7 mg/dL (8.4-10.2); Carbon Dioxide 22 mmol/L (22-30); Chloride 95 mmol/L (98-107); Estimated CRCL calculation 136 ml/min; Estimated Glomerular Filt Rate > 60; Glucose 96 mg/dL (65-110); Potassium 3.2 mmol/L (3.4-5.0); Sodium 121 mmol/L (137-145)
[2021-11-07 05:47] LABS: Osmolality, Urine 335 mOsm/kg (50-1200)
--- NOTE | 2021-11-07 08:25 | PM.IMPN ---
Progress Note: A&P Assessment and Plan (1) Hyponatremia: Code(s): E87.1 - Hypo-osmolality and hyponatremia Status: Acute Assessment and Plan: Most likely multifactorial in etiology although most likely secondary to excessive alcohol drinks intake. She has been on venlafaxine for many years however her dose was recently doubled. maybe medication related pt also drinks 12 claws a day, continue to monitor sodium levels, Pt was on 3 % ns but now. She is getting D5 water this morning. Nephrology is managing and serial sodium levels are ordered. I will defer management to senior chemical process engineer at this time Most recent sodium level is 121 (2) Nausea & vomiting: Code(s): R11.2 - Nausea with vomiting, unspecified Status: Resolved Assessment and Plan: Resolved (3) Alcohol abuse: Code(s): F10.10 - Alcohol abuse, uncomplicated Status: Acute Assessment and Plan: She is on CIWA protocol. Librium ordered prn Thiamine folic acid (4) Ketosis: Code(s): E88.89 - Other specified metabolic disorders Status: Resolved Assessment and Plan: Improved With fluid hydration (5) Hypertension: Code(s): I10 - Essential (primary) hypertension Status: Chronic Assessment and Plan: bp slightly high, cC (6) Petechial rash: Code(s): R23.3 - Spontaneous ecchymoses Status: Acute Assessment and Plan: Patient reports that this has been present intermittently off and on for many years and she was previously told it was related to her connective tissue disease. Platelet count is 212 continue to monitor. pt states it is a chronic rash (7) Depression: Qualifiers: Depression Type: unspecified Qualified Code(s): F32.A - Depression, unspecified Code(s): F32.A - Depression, unspecified Status: Acute Assessment and Plan: Venlafaxine stopped due to hyponatremia Additional Plan DVT prophylaxis -SCDs Up in chair, incentive spirometry Subjective Date/time seen: 11/07/21 08:25 Patient states he slept well and denies any new complaints. Her appetite is adequate. She is disappointed that she is not able to go home. She states she feels fine. Patient denies fever, chest pain, shortness of breath, nausea vomiting, abdominal pain,, diarrhea, headache or constipation. She is off of 3% saline. Vitals are stable and she is on room air Review of system was positive for cough which she states is chronic from her sjogrens syndrome. Interval history: 51-year-old female with Sjogren syndrome, connective tissue disease, hypertension, depression, and history of alcohol abuse who presented to the emergency department via private vehicle for evaluation after she was found to have a low sodium level on labs drawn last Thursday. Sodium was 101 on admission, pt is on 3 % Ns -nephrology is rounding. sodium improved to 107 now. Pt complains of not being able to sleep and swelling in her abdomen and face. Pt is a drinker of 12 White Claws a day. 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 Review of Systems Review of Systems: All systems reviewed & are unremarkable except as noted in HPI and below Exam Narrative: General: Pt is alert awake and in NAD Lungs/Chest: Trachea central Clear BS B/L, No crackles or wheezing. Cardiac: RRR. Normal S1 S2. No murmurs Circulation: Pedal pulses are intact and symmetrical. Abdomen: Normal bowel sounds.. Soft. NT. ND. Extremities: No clubbing, cyanosis or edema. Warm : Hayden in place Neurologic: Follows commands. Moves all 4 extremities PERRL AO x3 Skin: No Rash Objective Data Vital Signs Vital Signs: Vital Signs - 24 hr 11/06/21 08:59 11/06/21 10:00 11/06/21 12:00 Temperature 36.6 C Pulse Rate 76 72 74 Pulse Rate [Monitor] 74 Respiratory Rate 14 Blood Pressure 141/85 H Pulse Oximetry 99
[2021-11-07] MEDS: LOSARTAN POTASSIUM 100 MG TABLET PO (09:24)
[2021-11-07] MEDS: FOLIC ACID 1 MG TABLET PO (09:24)
[2021-11-07] MEDS: POTASSIUM CHLORIDE 20 MEQ TABLET.ER 40 MEQ PO ×2 (09:24→13:34)
[2021-11-07] MEDS: PANTOPRAZOLE 40 MG TABLET PO (09:25)
[2021-11-07] MEDS: METOPROLOL SUCCINATE EXT REL 100 MG TABCR PO (09:25)
[2021-11-07] MEDS: THIAMINE HCL 100 MG TABLET PO (09:25)
[2021-11-07] MEDS: DEXTROSE 5% 1,000 ML 1,000 ML 250 ML XX (09:26)
[2021-11-07] MEDS: SALIVA SUBSTITUTE COMBO RINSE 237 ML BOTTLE 15 ML PO (09:31)
--- NOTE | 2021-11-07 10:10 | PM.PNNEP ---
Progress Note: A&P Assessment and Plan (1) Hyponatremia: Code(s): E87.1 - Hypo-osmolality and hyponatremia Status: Acute Assessment and Plan: acute versus acute on chronic?? multifactorial etiology: excessive free water intake (constant dry mouth from Sjogren's syndrome) relapse on alcohol intake/alcoholism SSRI use (venlafaxine dose was recently increased) previous history urine electrolytes non-prerenal TSH okay; cortrosyn stim okay Will check a chest x-ray and a CT brain just to make sure we have not missed anything else. follow-up on urine/serum osmolality as well as SPE/UPE Her sodium corrected a little bit too quickly overnight. She is receiving D5W and will get a sodium level after that. Will try to get the sodium down to about 118. (2) Nausea & vomiting: Code(s): R11.2 - Nausea with vomiting, unspecified Status: Resolved Assessment and Plan: Resolved (3) Hypertension: Code(s): I10 - Essential (primary) hypertension Status: Chronic Assessment and Plan: Systolic 139 today. She is on her home medications. Will continue to follow. Subjective Date/time seen: 11/07/21 10:10 Interval history: I am seeing for hyponatremia. Meri is feeling a little better today. She is just weak. Exam Narrative: General: WD/WN female in NAD Heart: normal S1 and S2; no rub or subcu nodules Lungs: clear to auscultation Abdomen: soft, nontender, nondistended, positive bowel sounds Extremities: no cyanosis or clubbing; no edema Skin: No rash Objective Data Vital Signs Vital Signs: Vital Signs - 24 hr 11/06/21 12:00 11/06/21 14:00 11/06/21 16:00 Temperature 36.6 C 36.7 C Pulse Rate 74 78 85 Pulse Rate [Monitor] 74 85 Respiratory Rate 14 15 Blood Pressure 141/85 H 134/101 H Pulse Oximetry 99 100 11/06/21 18:00 11/06/21 20:00 11/06/21 22:00 Temperature 36.8 C Pulse Rate 82 80 78 Pulse Rate [Monitor] 80 Respiratory Rate 15 Blood Pressure 129/74 Pulse Oximetry 97 11/07/21 00:00 11/07/21 02:00 11/07/21 04:00 Temperature 37.1 C 36.5 C Pulse Rate 76 76 77 Pulse Rate [Monitor] 76 77 Respiratory Rate 15 14 Blood Pressure 128/92 H 133/80 Pulse Oximetry 97 98 11/07/21 06:00 11/07/21 08:00 11/07/21 09:25 Temperature 36.8 C Pulse Rate 77 82 87 Pulse Rate [Monitor] 82 Respiratory Rate 12 Blood Pressure 139/91 H Pulse Oximetry 99 Intake/Output Intake/Output: Intake & Output 11/04/21 11/05/21 11/06/21 11/07/21 23:59 23:59 23:59 23:59 Intake Total 2220 1913 1790 80 Output Total 1050 1800 2125 1250 Balance 1170 603 -398 -2020 Meds/Results Medications: Active Medications Generic Name Dose Route Start Last Admin Trade Name Freq PRN Reason Stop Dose Admin Acetaminophen 650 mg 11/04/21 21:27 11/06/21 21:25 Acetaminophen 325 Mg Tablet PO 650 mg Q6H PRN Administration Mild Pain (1-3) or Fever Chlordiazepoxide HCl 25 mg 11/04/21 20:34 11/06/21 16:25 Chlordiazepoxide (*Crx) 25 Mg Capsule PO 25 mg Q8H PRN Administration Alcohol withdrawal symptoms Folic Acid 1 mg 11/05/21 09:00 11/07/21 09:24 Folic Acid 1 Mg Tablet PO 1 mg DAILY ZULMA Administration Dextrose 1,000 mls @ 250 mls/hr 11/07/21 08:10 11/07/21 09:26 Dextrose 5% 1,000 Ml XX 11/07/21 10:39 250 mls/hr .Q4H ZULMA Administration Lorazepam 1 mg 11/04/21 21:25 11/05/21 21:27 Lorazepam Inj (*Crx) 2 Mg/Ml Vial IV PUSH 1 mg Q6H PRN Administration Alcohol withdrawal and CIWA >7 Losartan Potassium 100 mg 11/05/21 09:00 11/07/21 09:24 Losartan Potassium 100 Mg Tablet PO 100 mg DAILY ZULMA Administration Metoprolol Succinate 100 mg 11/05/21 09:00 11/07/21 09:25 Metoprolol Succinate Ext Rel 100 Mg Tabcr PO 100 mg DAILY ZULMA Administration Ondansetron HCl 4 mg 11/04/21 14:58 11/05/21 00:49 Ondansetron Inj 4 Mg/2 Ml Vial IV PUSH 4 mg Q4H P
[2021-11-07 13:33] LABS: Sodium 124 mmol/L (137-145)
[2021-11-07] MEDS: DESMOPRESSIN ACETATE 4 MCG/ML AMP 2 MCG IV PUSH (14:37)
[2021-11-07] MEDS: DEXTROSE 5% IN WATER 500 ML 250 ML XX (14:37)
[2021-11-07] MEDS: chlordiazePOXIDE (*CRX) 25 MG CAPSULE PO ×2 (15:43→23:49)
[2021-11-07 17:59] LABS: Sodium 122 mmol/L (137-145)
[2021-11-07 18:33] LABS: Chloride Rand Ur 57 mmol/L (32-290); Chloride/Creatinine Rand Ur 238 (38-318); Creatinine Random Urine 24 mg/dL (20-275)
[2021-11-07] MEDS: DEXTROSE 5% 1,000 ML 1,000 ML 350 ML XX (18:43)
[2021-11-07 22:11] LABS: Sodium 119 mmol/L (137-145)
[2021-11-07 22:30] LABS: Kappa\\Lambda Light Chains 1.14 (0.26-1.65); Lambda Light Chain 23.8 mg/L (5.7-26.3)
[2021-11-08] VITALS (15 sets, daily range): BP systolic 128–158; BP diastolic 84–109; PULSE 72–101; RESP 14–20; TEMP 35.5–37.1; O2SAT 98–100
[2021-11-08 04:05] LABS: Albumin 3.1 g/dL (3.8-4.8); Alpha 1 Globulin 0.3 g/dL (0.2-0.3); Alpha 2 Globulin 0.6 g/dL (0.5-0.9); Beta 1 Globulin 0.4 g/dL (0.4-0.6); Gamma Globulin 1.8 g/dL (0.8-1.7); Protein, Total 6.6 g/dL (6.1-8.1)
[2021-11-08 05:47] LABS: Alanine Aminotransferase 19 U/L (4-35); Alkaline Phosphatase 78 U/L (38-126); Anion Gap 5 mmol/L (8-16); Aspartate Amino Transferase 26 U/L (14-36); Bilirubin,Total 0.7 mg/dL (0.2-1.3); Blood Urea Nitrogen 6 mg/dL (7-17); Calcium 7.5 mg/dL (8.4-10.2); Carbon Dioxide 23 mmol/L (22-30); Chloride 92 mmol/L (98-107); Estimated CRCL calculation 136 ml/min; Estimated Glomerular Filt Rate > 60; Glucose 96 mg/dL (65-110); Magnesium 1.7 mg/dL (1.6-2.3); Phosphorus 2.2 mg/dL (2.5-4.5); Potassium 3.8 mmol/L (3.4-5.0); Sodium 120 mmol/L (137-145)
[2021-11-08 06:08] LABS: Hematocrit 29.4 % (37.0-47.0); Hemoglobin 10.5 g/dL (12.0-15.0); Mean Corpuscular HGB Conc 35.7 g/dl (32-36); Mean Corpuscular Volume 95.1 fl (80-100); Platelet Count Result 221 k/mm3 (150-375); Red Blood Count 3.09 M/mm3 (4.2-5.4); Red Cell Distribution Width 11.8 % (11.5-14.5); White Blood Count 5.2 K/mm3 (4.5-10.0)
[2021-11-08] MEDS: ACETAMINOPHEN 325 MG TABLET 650 MG PO (07:42)
[2021-11-08 07:59] LABS: Creatinine, Random Urine 40 mg/dL (20-275); Total Protein/Creatinine Ratio 650 mg/g creat (21-161)
[2021-11-08] MEDS: PANTOPRAZOLE 40 MG TABLET PO (08:55)
[2021-11-08] MEDS: LOSARTAN POTASSIUM 100 MG TABLET PO (08:55)
[2021-11-08] MEDS: FOLIC ACID 1 MG TABLET PO (08:55)
[2021-11-08] MEDS: THIAMINE HCL 100 MG TABLET PO (08:56)
[2021-11-08] MEDS: METOPROLOL SUCCINATE EXT REL 100 MG TABCR PO (08:56)
[2021-11-08] MEDS: POTASSIUM/PHOSPHORUS/SODIUM 1.5 GM PACKET 1 PACKET PO (09:45)
[2021-11-08 10:12] LABS: Sodium 120 mmol/L (137-145)
--- NOTE | 2021-11-08 10:32 | PM.PNNEP ---
Progress Note: A&P Assessment and Plan (1) Hyponatremia: Code(s): E87.1 - Hypo-osmolality and hyponatremia Status: Acute Assessment and Plan: acute versus acute on chronic?? multifactorial etiology: excessive free water intake (constant dry mouth from Sjogren's syndrome) relapse on alcohol intake/alcoholism SSRI use (venlafaxine dose was recently increased) previous history urine electrolytes non-prerenal TSH okay; cortrosyn stim okay chest x-ray shows some fluid. Will give a small amount of diuretics. CT scan is normal. Her sodium Level was difficult to bring back down to 119 but eventually it was achieved with D5W and eventually DDAVP.. This morning it is 120 Both at 5:00 a.m. and 10:00 a.m.. Her DDAVP is still probably working. Will give 1 dose of IV Lasix to help the volume overload and recheck the sodium in 4hours. (2) Nausea & vomiting: Code(s): R11.2 - Nausea with vomiting, unspecified Status: Resolved Assessment and Plan: Resolved (3) Hypertension: Code(s): I10 - Essential (primary) hypertension Status: Chronic Assessment and Plan: Systolic 130s to 140. She is on her home medications. Will continue to follow. Subjective Date/time seen: 11/08/21 10:32 Interval history: I am seeing for hyponatremia. patient is feeling okay. Generally weak. She says that she is gotten out of bed. Exam Narrative: General: WD/WN female in NAD Heart: normal S1 and S2; no rub or subcu nodules Lungs: clear to auscultation Abdomen: soft, nontender, nondistended, positive bowel sounds Extremities: no cyanosis or clubbing; no edema Skin: No rash or subcu nodules Objective Data Vital Signs Vital Signs: Vital Signs - 24 hr 11/07/21 11:36 11/07/21 12:00 11/07/21 14:00 Temperature 37.1 C Pulse Rate 71 81 Pulse Rate [Bilateral Pedal (Dorsalis Pedis) Palpation] 71 Respiratory Rate 13 Blood Pressure 141/90 H Pulse Oximetry 96 98 11/07/21 16:00 11/07/21 18:00 11/07/21 20:00 Temperature 36.6 C 36.4 C L Pulse Rate 76 80 85 Pulse Rate [Bilateral Pedal (Dorsalis Pedis) Palpation] 76 85 Respiratory Rate 14 16 Blood Pressure 136/97 H 140/81 Pulse Oximetry 99 99 11/07/21 22:00 11/08/21 00:00 11/08/21 02:00 Temperature 36.6 C Pulse Rate 83 92 72 Pulse Rate [Bilateral Pedal (Dorsalis Pedis) Palpation] 92 Respiratory Rate 15 Blood Pressure 135/84 Pulse Oximetry 98 11/08/21 04:00 11/08/21 06:00 11/08/21 07:42 Temperature 35.5 C L 37.1 C Pulse Rate 78 76 Pulse Rate [Bilateral Pedal (Dorsalis Pedis) Palpation] 78 Respiratory Rate 14 Blood Pressure 132/84 Pulse Oximetry 98 11/08/21 08:00 11/08/21 08:56 Temperature Pulse Rate 74 75 Pulse Rate [Bilateral Pedal (Dorsalis Pedis) Palpation] Respiratory Rate 20 Blood Pressure Pulse Oximetry Intake/Output Intake/Output: Intake & Output 11/05/21 11/06/21 11/07/21 11/08/21 23:59 23:59 23:59 23:59 Intake Total 1913 1790 3115 720 Output Total 1800 2125 1550 150 Balance 113 -335 1565 570 Meds/Results Medications: Active Medications Generic Name Dose Route Start Last Admin Trade Name Amandeepq PRN Reason Stop Dose Admin Acetaminophen 650 mg 11/04/21 21:27 11/08/21 07:42 Acetaminophen 325 Mg Tablet PO 650 mg Q6H PRN Administration Mild Pain (1-3) or Fever Chlordiazepoxide HCl 25 mg 11/04/21 20:34 11/07/21 23:49 Chlordiazepoxide (*Crx) 25 Mg Capsule PO 25 mg Q8H PRN Administration Alcohol withdrawal symptoms Folic Acid 1 mg 11/05/21 09:00 11/08/21 08:55 Folic Acid 1 Mg Tablet PO 1 mg DAILY ZULMA Administration Hydralazine HCl 20 mg 11/08/21 08:06 Hydralazine Hcl 20 Mg/Ml Vial IV PUSH Q4H PRN SBP > 160 Lorazepam 1 mg 11/04/21 21:25 11/05/21 21:27 Lorazepam Inj (*Crx) 2 Mg/Ml Vial IV PUSH 1 mg Q6H PRN Administration Alcohol withdrawal and
[2021-11-08] MEDS: FUROSEMIDE INJ 40 MG/4 ML VIAL IV PUSH (11:06)
[2021-11-08] MEDS: chlordiazePOXIDE (*CRX) 25 MG CAPSULE PO (12:47)
[2021-11-08 14:34] LABS: Sodium 121 mmol/L (137-145)
[2021-11-08] MEDS: SODIUM CHLORIDE 3% 500 ML 125 ML IV CONT (16:02)
[2021-11-08] MEDS: hydrALAZINE HCL 20 MG/ML VIAL IV PUSH (17:15)
[2021-11-08] MEDS: ONDANSETRON INJ 4 MG/2 ML VIAL IV PUSH (20:05)
[2021-11-08 20:32] LABS: Sodium 127 mmol/L (137-145)
[2021-11-08] MEDS: DESMOPRESSIN ACETATE 4 MCG/ML AMP 2 MCG IV PUSH (21:45)
[2021-11-09] VITALS (11 sets, daily range): BP systolic 137–158; BP diastolic 89–103; PULSE 70–97; RESP 14–22; TEMP 36.1–36.9; O2SAT 98–100
[2021-11-09 01:07] LABS: Sodium 126 mmol/L (137-145)
[2021-11-09 04:59] LABS: Hematocrit 30.1 % (37.0-47.0); Hemoglobin 10.5 g/dL (12.0-15.0); Mean Corpuscular HGB Conc 34.9 g/dl (32-36); Mean Corpuscular Hemoglobin 34.2 pg (26-34); Mean Platelet Volume 8.6 fl (7.4-10.4); Platelet Count Result 206 k/mm3 (150-375); Red Blood Count 3.07 M/mm3 (4.2-5.4); Red Cell Distribution Width 12.1 % (11.5-14.5); White Blood Count 6.4 K/mm3 (4.5-10.0)
[2021-11-09 05:10] LABS: Alanine Aminotransferase 16 U/L (4-35); Albumin Level 2.9 g/dL (3.5-5.1); Alkaline Phosphatase 76 U/L (38-126); Anion Gap 4 mmol/L (8-16); Aspartate Amino Transferase 24 U/L (14-36); Bilirubin,Total 0.5 mg/dL (0.2-1.3); Blood Urea Nitrogen 7 mg/dL (7-17); Calcium 7.8 mg/dL (8.4-10.2); Carbon Dioxide 25 mmol/L (22-30); Chloride 98 mmol/L (98-107); Estimated CRCL calculation 143 ml/min; Estimated Glomerular Filt Rate > 60; Glucose 103 mg/dL (65-110); Magnesium 1.6 mg/dL (1.6-2.3); Phosphorus 3.6 mg/dL (2.5-4.5); Potassium 3.7 mmol/L (3.4-5.0); Sodium 127 mmol/L (137-145)
[2021-11-09] MEDS: METOPROLOL SUCCINATE EXT REL 100 MG TABCR PO (08:47)
[2021-11-09] MEDS: PANTOPRAZOLE 40 MG TABLET PO (08:47)
[2021-11-09] MEDS: THIAMINE HCL 100 MG TABLET PO (08:47)
[2021-11-09] MEDS: FOLIC ACID 1 MG TABLET PO (08:47)
[2021-11-09] MEDS: LOSARTAN POTASSIUM 100 MG TABLET PO (08:47)
--- NOTE | 2021-11-09 11:17 | P.PNNP_ITS ---
Progress Note: A&P Assessment and Plan (1) Hyponatremia: Code(s): E87.1 - Hypo-osmolality and hyponatremia Status: Acute Assessment and Plan: * acute versus acute on chronic?? * multifactorial etiology: * excessive free water intake (constant dry mouth from Sjogren's syndrome) * relapse on alcohol intake/alcoholism * SSRI use (venlafaxine dose was recently increased) * previous history * urine electrolytes non-prerenal * TSH okay; cortrosyn stim okay * chest x-ray shows some fluid. Will give a small amount of diuretics. * CT scan is normal. * Sodium level was flat yesterday after the DDAVP had been given so I gave 3% saline. The neck sodium was 127 and Is stable. * Will continue to follow on fluid restriction only. * Discussed with Dr. Horowitz (2) Nausea & vomiting: Code(s): R11.2 - Nausea with vomiting, unspecified Status: Resolved Assessment and Plan: * Resolved (3) Hypertension: Code(s): I10 - Essential (primary) hypertension Status: Chronic Assessment and Plan: * Systolic 130s to 140s. * She is on her home medications. Will continue to follow. Subjective Date/time seen: 11/09/21 11:17 Interval history: I am seeing for hyponatremia. patient is feeling okay. sitting up in a chair and eating some breakfast. Exam Narrative: General: WD/WN female in NAD Heart: normal S1 and S2; no rub or subcu nodules Lungs: clear Abdomen: soft, nontender, nondistended, positive bowel sounds Extremities: no cyanosis or clubbing; no edema Skin: No rash Objective Data Vital Signs Vital Signs: Vital Signs - 24 hr 11/08/21 12:00 11/08/21 14:00 11/08/21 16:00 Temperature 36.8 C 36.2 C L Pulse Rate 76 86 78 Pulse Rate [Bilateral Pedal (Dorsalis Pedis) Palpation] 76 78 Respiratory Rate 17 16 Blood Pressure 128/94 H 158/109 H Pulse Oximetry 100 99 11/08/21 18:00 11/08/21 20:00 11/08/21 22:00 Temperature 37.1 C Pulse Rate 101 H 97 101 H Pulse Rate [Bilateral Pedal (Dorsalis Pedis) Palpation] Respiratory Rate 15 Blood Pressure 154/98 H Pulse Oximetry 99 11/08/21 23:43 11/09/21 00:00 11/09/21 02:00 Temperature 36.5 C Pulse Rate 93 95 97 Pulse Rate [Bilateral Pedal (Dorsalis Pedis) Palpation] Respiratory Rate 18 Blood Pressure 134/85 Pulse Oximetry 99 11/09/21 04:00 11/09/21 06:00 11/09/21 08:00 Temperature 36.9 C 36.4 C Pulse Rate 84 84 83 Pulse Rate [Bilateral Pedal (Dorsalis Pedis) Palpation] 83 Respiratory Rate 16 14 Blood Pressure 144/95 H 137/103 H Pulse Oximetry 98 99 11/09/21 08:47 Temperature Pulse Rate 79 Pulse Rate [Bilateral Pedal (Dorsalis Pedis) Palpation] Respiratory Rate Blood Pressure Pulse Oximetry Intake/Output Intake/Output: Intake & Output 11/06/21 11/07/21 11/08/21 11/09/21 23:59 23:59 23:59 23:59 Intake Total 0970 3115 2260 500 Output Total 0135 1550 3050 Balance -335 1565 -790 500 Meds/Results Medications: Active Med
--- NOTE | 2021-11-09 11:17 | PM.PNNEP ---
Progress Note: A&P Assessment and Plan (1) Hyponatremia: Code(s): E87.1 - Hypo-osmolality and hyponatremia Status: Acute Assessment and Plan: acute versus acute on chronic?? multifactorial etiology: excessive free water intake (constant dry mouth from Sjogren's syndrome) relapse on alcohol intake/alcoholism SSRI use (venlafaxine dose was recently increased) previous history urine electrolytes non-prerenal TSH okay; cortrosyn stim okay chest x-ray shows some fluid. Will give a small amount of diuretics. CT scan is normal. Sodium level was flat yesterday after the DDAVP had been given so I gave 3% saline. The neck sodium was 127 and Is stable. Will continue to follow on fluid restriction only. Discussed with Dr. Horowitz (2) Nausea & vomiting: Code(s): R11.2 - Nausea with vomiting, unspecified Status: Resolved Assessment and Plan: Resolved (3) Hypertension: Code(s): I10 - Essential (primary) hypertension Status: Chronic Assessment and Plan: Systolic 130s to 140s. She is on her home medications. Will continue to follow. Subjective Date/time seen: 11/09/21 11:17 Interval history: I am seeing for hyponatremia. patient is feeling okay. sitting up in a chair and eating some breakfast. Exam Narrative: General: WD/WN female in NAD Heart: normal S1 and S2; no rub or subcu nodules Lungs: clear Abdomen: soft, nontender, nondistended, positive bowel sounds Extremities: no cyanosis or clubbing; no edema Skin: No rash Objective Data Vital Signs Vital Signs: Vital Signs - 24 hr 11/08/21 12:00 11/08/21 14:00 11/08/21 16:00 Temperature 36.8 C 36.2 C L Pulse Rate 76 86 78 Pulse Rate [Bilateral Pedal (Dorsalis Pedis) Palpation] 76 78 Respiratory Rate 17 16 Blood Pressure 128/94 H 158/109 H Pulse Oximetry 100 99 11/08/21 18:00 11/08/21 20:00 11/08/21 22:00 Temperature 37.1 C Pulse Rate 101 H 97 101 H Pulse Rate [Bilateral Pedal (Dorsalis Pedis) Palpation] Respiratory Rate 15 Blood Pressure 154/98 H Pulse Oximetry 99 11/08/21 23:43 11/09/21 00:00 11/09/21 02:00 Temperature 36.5 C Pulse Rate 93 95 97 Pulse Rate [Bilateral Pedal (Dorsalis Pedis) Palpation] Respiratory Rate 18 Blood Pressure 134/85 Pulse Oximetry 99 11/09/21 04:00 11/09/21 06:00 11/09/21 08:00 Temperature 36.9 C 36.4 C Pulse Rate 84 84 83 Pulse Rate [Bilateral Pedal (Dorsalis Pedis) Palpation] 83 Respiratory Rate 16 14 Blood Pressure 144/95 H 137/103 H Pulse Oximetry 98 99 11/09/21 08:47 Temperature Pulse Rate 79 Pulse Rate [Bilateral Pedal (Dorsalis Pedis) Palpation] Respiratory Rate Blood Pressure Pulse Oximetry Intake/Output Intake/Output: Intake & Output 11/06/21 11/07/21 11/08/21 11/09/21 23:59 23:59 23:59 23:59 Intake Total 1790 3115 2260 500 Output Total 2125 1550 3050 Balance -335 1565 -790 500 Meds/Results Medications: Active Medications Generic Name Dose Route Start Last Admin Trade Name Freq PRN Reason Stop Dose Admin Acetaminophen 650 mg 11/04/21 21:27 11/08/21 07:42 Acetaminophen 325 Mg Tablet PO 650 mg Q6H PRN Administration Mild Pain (1-3) or Fever Chlordiazepoxide HCl 25 mg 11/04/21 20:34 11/08/21 12:47 Chlordiazepoxide (*Crx) 25 Mg Capsule PO 25 mg Q8H PRN Administration Alcohol withdrawal symptoms Folic Acid 1 mg 11/05/21 09:00 11/09/21 08:47 Folic Acid 1 Mg Tablet PO 1 mg DAILY ZULMA Administration Hydralazine HCl 20 mg 11/08/21 08:06 11/08/21 17:15 Hydralazine Hcl 20 Mg/Ml Vial IV PUSH 20 mg Q4H PRN Administration SBP > 160 Lorazepam 1 mg 11/04/21 21:25 11/05/21 21:27 Lorazepam Inj (*Crx) 2 Mg/Ml Vial IV PUSH 1 mg Q6H PRN Administration Alcohol withdrawal and CIWA >7 Losartan Potassium 100 mg 11/05/21 09:00 11/09/21 08:47 Losartan Potassium 100 Mg Tablet PO
--- NOTE | 2021-11-09 11:38 | PM.IMPN ---
Progress Note: A&P Assessment and Plan (1) Hyponatremia: Code(s): E87.1 - Hypo-osmolality and hyponatremia Status: Acute Assessment and Plan: Most likely multifactorial in etiology although most likely secondary to excessive alcohol drinks intake. She has been on venlafaxine for many years however her dose was recently doubled. maybe medication related pt also drinks 12 claws a day, continue to monitor sodium levels, Pt was on 3 % ns but now. She is getting D5 water this morning. Nephrology is managing and serial sodium levels are ordered. I will defer management to speech language assistant at this time Most recent sodium level is 121 11/09/2021 interval daley Patient is a 51-year-old female presented with hyponatremia upon arrival her sodium was 101 patient seen by speech language assistant suspect multifactorial secondary to taking too much free oral due to sojourn syndrome and dry mouth, SSRI and alcoholism patient is being treated fluid restriction, DDAVP and type and treated with a 3 patient's sodium chloride, now patient's sodium is trending up and today it is 127, patient remains clinically stable discussed with nephrology, will CPM, will continue to monitor (2) Nausea & vomiting: Code(s): R11.2 - Nausea with vomiting, unspecified Status: Resolved Assessment and Plan: Resolved (3) Alcohol abuse: Code(s): F10.10 - Alcohol abuse, uncomplicated Status: Acute Assessment and Plan: She is on CIWA protocol. Librium ordered prn Thiamine folic acid (4) Ketosis: Code(s): E88.89 - Other specified metabolic disorders Status: Resolved Assessment and Plan: Improved With fluid hydration (5) Hypertension: Code(s): I10 - Essential (primary) hypertension Status: Chronic Assessment and Plan: bp slightly high, cC (6) Petechial rash: Code(s): R23.3 - Spontaneous ecchymoses Status: Acute Assessment and Plan: Patient reports that this has been present intermittently off and on for many years and she was previously told it was related to her connective tissue disease. Platelet count is 212 continue to monitor. pt states it is a chronic rash (7) Depression: Qualifiers: Depression Type: unspecified Qualified Code(s): F32.A - Depression, unspecified Code(s): F32.A - Depression, unspecified Status: Acute Assessment and Plan: Venlafaxine stopped due to hyponatremia Additional Plan DVT prophylaxis -SCDs Up in chair, incentive spirometry Subjective Date/time seen: 11/09/21 11:38 11/09/2021 interval hisotry Patient is a 51-year-old female presented with hyponatremia upon arrival her sodium was 101 patient seen by speech language assistant suspect multifactorial secondary to taking too much free oral due to sojourn syndrome and dry mouth, SSRI and alcoholism patient is being treated fluid restriction, DDAVP and type and treated with a 3 patient's sodium chloride, now patient's sodium is trending up and today it is 127, patient remains clinically stable discussed with nephrology, will CPM, will continue to monitor Review of Systems Review of Systems: All systems reviewed & are unremarkable except as noted in HPI and below Exam Narrative: morbidly obese Patient is comfortable, NAD HEENT: eyes are clear and none icteric LUNGS: normal respiratory effort HEART: RR S1S2 ABD: distended Lower extremities: no edema SKIN: nonjaundiced Neuro: grossly intact. Objective Data Vital Signs Vital Signs: Vital Signs - 24 hr 11/08/21 12:00 11/08/21 14:00 11/08/21 16:00 Temperature 98.3 F 97.2 F L Pulse Rate 76 86 78 Pulse Rate [Bilateral Pedal (Dorsalis Pedis) Palpation] 76 78 Respiratory Rate 17 16 Blood Pressure 128/94 H 158/109 H Pulse Oximetry 100 99 11/08/21 18:00 11/08/21 20:00 11/08/21 22:00 Temperature 98.8 F Pulse Rate 101 H 97 101 H Pulse Rate [Bilateral Pedal (Dorsalis Pedis
[2021-11-09 15:06] LABS: Sodium 126 mmol/L (137-145)
--- NOTE | 2021-11-09 17:18 | PC.NURSE ---
This patient, Meri Vincent, was received from [ ICU] on 11/09/21 at 1719. Patient/family oriented to unit policies and routines. Report taken from Eva
[2021-11-09] MEDS: ACETAMINOPHEN 325 MG TABLET 650 MG PO (19:14)
[2021-11-09 20:24] LABS: Sodium 125 mmol/L (137-145)
[2021-11-10 05:16] LABS: Hematocrit 30.5 % (37.0-47.0); Hemoglobin 10.6 g/dL (12.0-15.0); Mean Corpuscular HGB Conc 34.8 g/dl (32-36); Mean Corpuscular Hemoglobin 34.4 pg (26-34); Mean Platelet Volume 8.7 fl (7.4-10.4); Platelet Count Result 194 k/mm3 (150-375); Red Blood Count 3.08 M/mm3 (4.2-5.4); White Blood Count 5.2 K/mm3 (4.5-10.0)
[2021-11-10 05:29] LABS: Alanine Aminotransferase 15 U/L (4-35); Alkaline Phosphatase 74 U/L (38-126); Anion Gap 5 mmol/L (8-16); Aspartate Amino Transferase 22 U/L (14-36); Bilirubin,Total 0.5 mg/dL (0.2-1.3); Blood Urea Nitrogen 7 mg/dL (7-17); Calcium 8.2 mg/dL (8.4-10.2); Carbon Dioxide 24 mmol/L (22-30); Chloride 98 mmol/L (98-107); Estimated CRCL calculation 143 ml/min; Estimated Glomerular Filt Rate > 60; Glucose 102 mg/dL (65-110); Magnesium 1.6 mg/dL (1.6-2.3); Phosphorus 4.8 mg/dL (2.5-4.5); Potassium 3.5 mmol/L (3.4-5.0); Sodium 127 mmol/L (137-145)
[2021-11-10 06:22] VITALS: BP 125/78; PULSE 75; RESP 16; TEMP 36.4; O2SAT 99
--- NOTE | 2021-11-10 09:02 | PM.PNNEP ---
Progress Note: A&P Assessment and Plan (1) Hyponatremia: Code(s): E87.1 - Hypo-osmolality and hyponatremia Status: Acute Assessment and Plan: acute versus acute on chronic?? multifactorial etiology: excessive free water intake (constant dry mouth from Sjogren's syndrome) relapse on alcohol intake/alcoholism SSRI use (venlafaxine dose was recently increased) previous history urine electrolytes non-prerenal TSH okay; cortrosyn stim okay chest x-ray shows some fluid. CT scan is normal. Sodium level dropped to 125 yesterday and then tre to 127 today. She is on fluid restriction of 1500cc. The DDAVP should be worn off by now. She may have chronically low sodium. Will try to get some records from her doctor in [place]. In the meantime will give Lasix and salt tablets to try to get rid of some of the fluid and also bring the sodium up a little bit. Discussed with Dr. Horowitz (2) Nausea & vomiting: Code(s): R11.2 - Nausea with vomiting, unspecified Status: Resolved Assessment and Plan: Resolved (3) Hypertension: Code(s): I10 - Essential (primary) hypertension Status: Chronic Assessment and Plan: Systolic 120s to 140s. She is on her home medications. Subjective Date/time seen: 11/10/21 09:02 Interval history: I am seeing for hyponatremia. patient is feeling okay. Lying in semi-Conte's position. No chest pain or shortness of breath Exam Narrative: General: WD/WN female in NAD Heart: normal S1 and S2; no rub or subcu nodules Lungs: clear of crackles. Some decrease in breath sounds at the bases Abdomen: soft, nontender, nondistended, positive bowel sounds Extremities: no cyanosis or clubbing; no edema Skin: No rash Objective Data Vital Signs Vital Signs: Vital Signs - 24 hr 11/09/21 10:00 11/09/21 12:00 11/09/21 14:00 Temperature 36.1 C L Pulse Rate 83 76 82 Pulse Rate [Bilateral Pedal (Dorsalis Pedis) Palpation] 76 Respiratory Rate 22 H Blood Pressure 158/101 H Pulse Oximetry 100 11/09/21 16:00 11/09/21 21:00 11/10/21 06:22 Temperature 36.9 C 36.4 C Pulse Rate 83 79 75 Pulse Rate [Bilateral Pedal (Dorsalis Pedis) Palpation] 70 Respiratory Rate 14 18 16 Blood Pressure 144/89 H 125/78 Pulse Oximetry 99 100 99 Intake/Output Intake/Output: Intake & Output 11/07/21 11/08/21 11/09/21 11/10/21 23:59 23:59 23:59 23:59 Intake Total 3115 2260 980 580 Output Total 1550 3050 Balance 1565 -790 980 580 Meds/Results Medications: Active Medications Generic Name Dose Route Start Last Admin Trade Name Freq PRN Reason Stop Dose Admin Acetaminophen 650 mg 11/04/21 21:27 11/09/21 19:14 Acetaminophen 325 Mg Tablet PO 650 mg Q6H PRN Administration Mild Pain (1-3) or Fever Chlordiazepoxide HCl 25 mg 11/04/21 20:34 11/08/21 12:47 Chlordiazepoxide (*Crx) 25 Mg Capsule PO 25 mg Q8H PRN Administration Alcohol withdrawal symptoms Folic Acid 1 mg 11/05/21 09:00 11/09/21 08:47 Folic Acid 1 Mg Tablet PO 1 mg DAILY ZULMA Administration Hydralazine HCl 20 mg 11/08/21 08:06 11/08/21 17:15 Hydralazine Hcl 20 Mg/Ml Vial IV PUSH 20 mg Q4H PRN Administration SBP > 160 Lorazepam 1 mg 11/04/21 21:25 11/05/21 21:27 Lorazepam Inj (*Crx) 2 Mg/Ml Vial IV PUSH 1 mg Q6H PRN Administration Alcohol withdrawal and CIWA >7 Losartan Potassium 100 mg 11/05/21 09:00 11/09/21 08:47 Losartan Potassium 100 Mg Tablet PO 100 mg DAILY ZULMA Administration Magnesium Oxide 400 mg 11/08/21 08:00 Magnesium Oxide 400 Mg Tablet PO ONCE ZULMA Metoprolol Succinate 100 mg 11/05/21 09:00 11/09/21 08:47 Metoprolol Succinate Ext Rel 100 Mg Tabcr PO 100 mg DAILY ZULMA Administration Neomycin/Polymyxin/Bacitracin 1 packet 11/09/21 15:55 Neomycin/Polymyxin/Bacitracin Ointment Packet TOPICAL PRN PRN Wound Care
[2021-11-10 09:09] VITALS: PULSE 75
[2021-11-10] MEDS: THIAMINE HCL 100 MG TABLET PO (09:09)
[2021-11-10] MEDS: METOPROLOL SUCCINATE EXT REL 100 MG TABCR PO (09:09)
[2021-11-10] MEDS: LOSARTAN POTASSIUM 100 MG TABLET PO (09:09)
[2021-11-10] MEDS: FOLIC ACID 1 MG TABLET PO (09:09)
[2021-11-10] MEDS: PANTOPRAZOLE 40 MG TABLET PO (09:09)
[2021-11-10] MEDS: SODIUM CHLORIDE 1 GM TABLET PO ×2 (10:41→16:06)
[2021-11-10] MEDS: NEOMYCIN/POLYMYXIN/BACITRACIN OINTMENT PACKET 1 PACKET TOPICAL (10:41)
[2021-11-10] MEDS: ONDANSETRON INJ 4 MG/2 ML VIAL IV PUSH (10:54)
--- NOTE | 2021-11-10 12:08 | PM.IMPN ---
Progress Note: A&P Assessment and Plan (1) Hyponatremia: Code(s): E87.1 - Hypo-osmolality and hyponatremia Status: Acute Assessment and Plan: Most likely multifactorial in etiology although most likely secondary to excessive alcohol drinks intake. She has been on venlafaxine for many years however her dose was recently doubled. maybe medication related pt also drinks 12 claws a day, continue to monitor sodium levels, Pt was on 3 % ns but now. She is getting D5 water this morning. Nephrology is managing and serial sodium levels are ordered. I will defer management to electrostatic paint operator at this time Most recent sodium level is 121 11/09/2021 interval jamel Patient is a 51-year-old female presented with hyponatremia upon arrival her sodium was 101 patient seen by electrostatic paint operator suspect multifactorial secondary to taking too much free oral due to sojourn syndrome and dry mouth, SSRI and alcoholism patient is being treated fluid restriction, DDAVP and type and treated with a 3 patient's sodium chloride, now patient's sodium is trending up and today it is 127, patient remains clinically stable discussed with nephrology, will CPM, will continue to monitor. 11/10/2021 interval jamel Patient is a 51-year-old female presented with hyponatremia upon arrival her sodium was 101 patient seen by electrostatic paint operator suspect multifactorial secondary to taking too much free oral due to sojourn syndrome and dry mouth, SSRI and alcoholism patient is being treated fluid restriction, DDAVP and treated with a 3% sodium chloride, now patient's sodium is trending up and today it is 127, and Dr Newman added salt 1g tab twice a day, patient remains clinically stable discussed with nephrology, will CPM, will continue to monitor (2) Nausea & vomiting: Code(s): R11.2 - Nausea with vomiting, unspecified Status: Resolved Assessment and Plan: Resolved (3) Alcohol abuse: Code(s): F10.10 - Alcohol abuse, uncomplicated Status: Acute Assessment and Plan: She is on CIWA protocol. Librium ordered prn Thiamine folic acid (4) Ketosis: Code(s): E88.89 - Other specified metabolic disorders Status: Resolved Assessment and Plan: Improved With fluid hydration (5) Hypertension: Code(s): I10 - Essential (primary) hypertension Status: Chronic Assessment and Plan: bp slightly high, cC (6) Petechial rash: Code(s): R23.3 - Spontaneous ecchymoses Status: Acute Assessment and Plan: Patient reports that this has been present intermittently off and on for many years and she was previously told it was related to her connective tissue disease. Platelet count is 212 continue to monitor. pt states it is a chronic rash (7) Depression: Qualifiers: Depression Type: unspecified Qualified Code(s): F32.A - Depression, unspecified Code(s): F32.A - Depression, unspecified Status: Acute Assessment and Plan: Venlafaxine stopped due to hyponatremia Additional Plan DVT prophylaxis -SCDs Up in chair, incentive spirometry Subjective Date/time seen: 11/10/21 12:08 11/09/2021 interval jamel Patient is a 51-year-old female presented with hyponatremia upon arrival her sodium was 101 patient seen by electrostatic paint operator suspect multifactorial secondary to taking too much free oral due to sojourn syndrome and dry mouth, SSRI and alcoholism patient is being treated fluid restriction, DDAVP and type and treated with a 3 patient's sodium chloride, now patient's sodium is trending up and today it is 127, patient remains clinically stable discussed with nephrology, will CPM, will continue to monitor 11/10/2021 interval jamel Patient is a 51-year-old female presented with hyponatremia upon arrival her sodium was 101 patient seen by electrostatic paint operator suspect multifactorial secondary to taking too much free oral due to sojourn syndrome and dry carlos
[2021-11-10 12:57] VITALS: PULSE 75
[2021-11-10] MEDS: ACETAMINOPHEN 325 MG TABLET 650 MG PO (12:59)
[2021-11-10] MEDS: FUROSEMIDE 20 MG TABLET PO (16:06)
[2021-11-10] MEDS: cefTRIAXone 2 GM in SODIUM CHLORIDE 0.9% IV 100 ML 200 ML IVPB (17:42)
[2021-11-10 18:02] LABS: Sodium 128 mmol/L (137-145)
[2021-11-10 20:57] VITALS: BP 138/87; PULSE 82; RESP 16; TEMP 36.9; O2SAT 99
[2021-11-10] MEDS: SALINE LOCK FLUSH 10 ML IV PUSH (22:00)
[2021-11-11] MEDS: cefTRIAXone 2 GM in SODIUM CHLORIDE 0.9% IV 100 ML 200 ML IVPB (04:29)
[2021-11-11] MEDS: SALIVA SUBSTITUTE COMBO RINSE 237 ML BOTTLE 15 ML PO (04:36)
[2021-11-11] MEDS: SALINE LOCK FLUSH 10 ML IV PUSH (04:39)
[2021-11-11 04:49] LABS: Hematocrit 29.5 % (37.0-47.0); Hemoglobin 9.9 g/dL (12.0-15.0); Mean Corpuscular HGB Conc 33.6 g/dl (32-36); Mean Corpuscular Hemoglobin 33.9 pg (26-34); Mean Platelet Volume 8.7 fl (7.4-10.4); Platelet Count Result 185 k/mm3 (150-375); Red Blood Count 2.92 M/mm3 (4.2-5.4); Red Cell Distribution Width 11.9 % (11.5-14.5); White Blood Count 4.9 K/mm3 (4.5-10.0)
[2021-11-11 05:02] LABS: Alanine Aminotransferase 14 U/L (4-35); Alkaline Phosphatase 71 U/L (38-126); Anion Gap 7 mmol/L (8-16); Aspartate Amino Transferase 22 U/L (14-36); Bilirubin,Total 0.4 mg/dL (0.2-1.3); Blood Urea Nitrogen 7 mg/dL (7-17); Calcium 8.1 mg/dL (8.4-10.2); Carbon Dioxide 25 mmol/L (22-30); Chloride 99 mmol/L (98-107); Estimated CRCL calculation 115 ml/min; Estimated Glomerular Filt Rate > 60; Glucose 99 mg/dL (65-110); Magnesium 1.6 mg/dL (1.6-2.3); Phosphorus 5.9 mg/dL (2.5-4.5); Potassium 3.7 mmol/L (3.4-5.0); Sodium 131 mmol/L (137-145)
[2021-11-11 05:29] VITALS: BP 139/80; PULSE 83; RESP 14; TEMP 37.1; O2SAT 99
[2021-11-11 07:54] VITALS: PULSE 83
[2021-11-11] MEDS: FUROSEMIDE 20 MG TABLET PO (07:54)
[2021-11-11] MEDS: LOSARTAN POTASSIUM 100 MG TABLET PO (07:54)
[2021-11-11] MEDS: SODIUM CHLORIDE 1 GM TABLET PO (07:54)
[2021-11-11] MEDS: FOLIC ACID 1 MG TABLET PO (07:54)
[2021-11-11] MEDS: THIAMINE HCL 100 MG TABLET PO (07:54)
[2021-11-11] MEDS: PANTOPRAZOLE 40 MG TABLET PO (07:54)
[2021-11-11] MEDS: METOPROLOL SUCCINATE EXT REL 100 MG TABCR PO (07:54)
[2021-11-11 07:57] VITALS: BP 139/80; PULSE 83
--- NOTE | 2021-11-11 11:04 | P.PNNP_ITS ---
Progress Note: A&P Assessment and Plan (1) Hyponatremia: Code(s): E87.1 - Hypo-osmolality and hyponatremia Status: Acute Assessment and Plan: * acute versus acute on chronic?? * multifactorial etiology: * excessive free water intake (constant dry mouth from Sjogren's syndrome) * relapse on alcohol intake/alcoholism * SSRI use (venlafaxine dose was recently increased) * previous history * urine electrolytes non-prerenal * TSH okay; cortrosyn stim okay * chest x-ray shows some fluid. * CT scan is normal. * Sodium level dropped to 125 yesterday and then tre to 127 today. * She is on fluid restriction of 1500cc. * The patient's sodium level has risen gradually to 131. I think this is close enough for her to be able to go home. * She should continue her fluid restriction. Will stop the diuretics and salt tablets. * She can follow-up with her primary care physician or see me in the office if he would prefer. * Discussed with Dr. Horowitz (2) Nausea & vomiting: Code(s): R11.2 - Nausea with vomiting, unspecified Status: Resolved Assessment and Plan: * Resolved (3) Hypertension: Code(s): I10 - Essential (primary) hypertension Status: Chronic Assessment and Plan: * Systolic 120s to 140s. * She is on her home medications. Subjective Date/time seen: 11/11/21 11:04 Interval history: I am seeing for hyponatremia. patient is feeling okay. Eating okay. Exam Narrative: General: WD/WN female in NAD Heart: normal S1 and S2; no rub or subcu nodules Lungs: clear of crackles. Some decrease in breath sounds at the bases Abdomen: soft, nontender, nondistended, positive bowel sounds Extremities: no cyanosis or clubbing; no edema Skin: No rash or subQ nodules Objective Data Vital Signs Vital Signs: Vital Signs - 24 hr 11/10/21 12:57 11/10/21 20:57 11/11/21 05:29 Temperature 36.9 C 37.1 C Pulse Rate 82 83 Pulse Rate [Bilateral Pedal (Dorsalis Pedis) Palpation] 75 Respiratory Rate 16 14 Blood Pressure 138/87 139/80 Pulse Oximetry 99 99 11/11/21 07:54 11/11/21 07:57 Temperature Pulse Rate 83 Pulse Rate [Bilateral Pedal (Dorsalis Pedis) Palpation] 83 Respiratory Rate Blood Pressure 139/80 Pulse Oximetry Intake/Output Intake/Output: Intake & Output 11/08/21 11/09/21 11/10/21 11/11/21 23:59 23:59 23:59 23:59 Intake Total 2260 980 1550 730 Output Total 3050 800 600 Balance -790 980 750 130 Meds/Results Medications: Active Medications Generic Name Dose Route Start Last Admin Trade Name Freq PRN Reason Stop Dose Admin Acetaminophen 650 mg 11/04/21 21:27 11/10/21 12:59 Acetaminophen 325 Mg Tablet PO 650 mg Q6H PRN Administration Mild Pain (1-3) or Fever Chlordiazepoxide HCl 25 mg 11/04/21 20:34 11/08/21 12:47 Chlordiazepoxide (*Crx) 25 Mg Capsule PO 25 mg Q8H PRN Administration Alcohol withdrawal symptoms Folic Acid 1 mg 11/05/21 09:00 11/11/21 07:54 Folic Acid 1 Mg Tablet PO 1 mg DAILY ZULMA Administration Furosemide 20 mg 11/10/21 17:00 11/11/21 07:54 Furosemid
--- NOTE | 2021-11-11 11:04 | PM.PNNEP ---
Progress Note: A&P Assessment and Plan (1) Hyponatremia: Code(s): E87.1 - Hypo-osmolality and hyponatremia Status: Acute Assessment and Plan: acute versus acute on chronic?? multifactorial etiology: excessive free water intake (constant dry mouth from Sjogren's syndrome) relapse on alcohol intake/alcoholism SSRI use (venlafaxine dose was recently increased) previous history urine electrolytes non-prerenal TSH okay; cortrosyn stim okay chest x-ray shows some fluid. CT scan is normal. Sodium level dropped to 125 yesterday and then tre to 127 today. She is on fluid restriction of 1500cc. The patient's sodium level has risen gradually to 131. I think this is close enough for her to be able to go home. She should continue her fluid restriction. Will stop the diuretics and salt tablets. She can follow-up with her primary care physician or see me in the office if he would prefer. Discussed with Dr. Horowitz (2) Nausea & vomiting: Code(s): R11.2 - Nausea with vomiting, unspecified Status: Resolved Assessment and Plan: Resolved (3) Hypertension: Code(s): I10 - Essential (primary) hypertension Status: Chronic Assessment and Plan: Systolic 120s to 140s. She is on her home medications. Subjective Date/time seen: 11/11/21 11:04 Interval history: I am seeing for hyponatremia. patient is feeling okay. Eating okay. Exam Narrative: General: WD/WN female in NAD Heart: normal S1 and S2; no rub or subcu nodules Lungs: clear of crackles. Some decrease in breath sounds at the bases Abdomen: soft, nontender, nondistended, positive bowel sounds Extremities: no cyanosis or clubbing; no edema Skin: No rash or subQ nodules Objective Data Vital Signs Vital Signs: Vital Signs - 24 hr 11/10/21 12:57 11/10/21 20:57 11/11/21 05:29 Temperature 36.9 C 37.1 C Pulse Rate 82 83 Pulse Rate [Bilateral Pedal (Dorsalis Pedis) Palpation] 75 Respiratory Rate 16 14 Blood Pressure 138/87 139/80 Pulse Oximetry 99 99 11/11/21 07:54 11/11/21 07:57 Temperature Pulse Rate 83 Pulse Rate [Bilateral Pedal (Dorsalis Pedis) Palpation] 83 Respiratory Rate Blood Pressure 139/80 Pulse Oximetry Intake/Output Intake/Output: Intake & Output 11/08/21 11/09/21 11/10/21 11/11/21 23:59 23:59 23:59 23:59 Intake Total 2260 980 1550 730 Output Total 3050 800 600 Balance -790 980 750 130 Meds/Results Medications: Active Medications Generic Name Dose Route Start Last Admin Trade Name Freq PRN Reason Stop Dose Admin Acetaminophen 650 mg 11/04/21 21:27 11/10/21 12:59 Acetaminophen 325 Mg Tablet PO 650 mg Q6H PRN Administration Mild Pain (1-3) or Fever Chlordiazepoxide HCl 25 mg 11/04/21 20:34 11/08/21 12:47 Chlordiazepoxide (*Crx) 25 Mg Capsule PO 25 mg Q8H PRN Administration Alcohol withdrawal symptoms Folic Acid 1 mg 11/05/21 09:00 11/11/21 07:54 Folic Acid 1 Mg Tablet PO 1 mg DAILY ZULMA Administration Furosemide 20 mg 11/10/21 17:00 11/11/21 07:54 Furosemide 20 Mg Tablet PO 20 mg BID ZULMA Administration Hydralazine HCl 20 mg 11/08/21 08:06 11/08/21 17:15 Hydralazine Hcl 20 Mg/Ml Vial IV PUSH 20 mg Q4H PRN Administration SBP > 160 Ceftriaxone Sodium 2 gm/ 100 mls @ 200 mls/hr 11/10/21 16:00 11/11/21 04:59 Sodium Chloride IVPB Infused Q12H ZULMA Infusion Lorazepam 1 mg 11/04/21 21:25 11/05/21 21:27 Lorazepam Inj (*Crx) 2 Mg/Ml Vial IV PUSH 1 mg Q6H PRN Administration Alcohol withdrawal and CIWA >7 Losartan Potassium 100 mg 11/05/21 09:00 11/11/21 07:54 Losartan Potassium 100 Mg Tablet PO 100 mg DAILY ZULMA Administration Magnesium Oxide 400 mg 11/08/21 08:00 Magnesium Oxide 400 Mg Tablet PO ONCE ZULMA Metoprolol Succinate 100 mg 11/05/21 09:00 11/11/21 07:54 Metoprolol Succinate Ext Rel 100 Mg
[2021-11-11] MEDS: NEOMYCIN/POLYMYXIN/BACITRACIN OINTMENT PACKET 1 PACKET TOPICAL (11:05)
--- NOTE | 2021-11-11 11:55 | PM.DS ---
DS: Admitting Diagnosis Discharge Date 11/11/2021 Admitting Diagnosis Low-sodium DS: Discharge Diagnosis Discharge Diagnosis (1) Hyponatremia: Code(s): E87.1 - Hypo-osmolality and hyponatremia Status: Acute Assessment and Plan: Most likely multifactorial in etiology although most likely secondary to excessive alcohol drinks intake. She has been on venlafaxine for many years however her dose was recently doubled. maybe medication related pt also drinks 12 claws a day, continue to monitor sodium levels, Pt was on 3 % ns but now. She is getting D5 water this morning. Nephrology is managing and serial sodium levels are ordered. I will defer management to [facility] at this time Most recent sodium level is 121 11/09/2021 interval jamel Patient is a 51-year-old female presented with hyponatremia upon arrival her sodium was 101 patient seen by [facility] suspect multifactorial secondary to taking too much free oral due to sojourn syndrome and dry mouth, SSRI and alcoholism patient is being treated fluid restriction, DDAVP and type and treated with a 3 patient's sodium chloride, now patient's sodium is trending up and today it is 127, patient remains clinically stable discussed with nephrology, will CPM, will continue to monitor. 11/10/2021 interval jamel Patient is a 51-year-old female presented with hyponatremia upon arrival her sodium was 101 patient seen by [facility] suspect multifactorial secondary to taking too much free oral due to sojourn syndrome and dry mouth, SSRI and alcoholism patient is being treated fluid restriction, DDAVP and treated with a 3% sodium chloride, now patient's sodium is trending up and today it is 127, and Dr Newman added salt 1g tab twice a day, patient remains clinically stable discussed with nephrology, will CPM, will continue to monitor (2) Nausea & vomiting: Qualifiers: Vomiting type: unspecified Qualified Code(s): R11.2 - Nausea with vomiting, unspecified Code(s): R11.2 - Nausea with vomiting, unspecified Status: Resolved Assessment and Plan: Resolved (3) Alcohol abuse: Code(s): F10.10 - Alcohol abuse, uncomplicated Status: Acute Assessment and Plan: She is on CIWA protocol. Librium ordered prn Thiamine folic acid (4) Ketosis: Code(s): E88.89 - Other specified metabolic disorders Status: Resolved Assessment and Plan: Improved With fluid hydration (5) Hypertension: Qualifiers: Hypertension type: primary hypertension Qualified Code(s): I10 - Essential (primary) hypertension Code(s): I10 - Essential (primary) hypertension Status: Chronic Assessment and Plan: bp slightly high, cC (6) Petechial rash: Code(s): R23.3 - Spontaneous ecchymoses Status: Acute Assessment and Plan: Patient reports that this has been present intermittently off and on for many years and she was previously told it was related to her connective tissue disease. Platelet count is 212 continue to monitor. pt states it is a chronic rash (7) Depression: Qualifiers: Depression Type: unspecified Qualified Code(s): F32.A - Depression, unspecified Code(s): F32.A - Depression, unspecified Status: Acute Assessment and Plan: Venlafaxine stopped due to hyponatremia DS: Summary Hospital Course Reason for hospitalization: Chief Complaint: Low sodium level. Narrative: This is a 51-year-old female with Sjogren syndrome, connective tissue disease, hypertension, depression, and history of alcohol abuse who presented to the emergency department via private vehicle for evaluation after she was found to have a low sodium level on labs drawn last Thursday. She moved here from [place] in the last several weeks and had a new patient appointment with Felipa Bernard NP on October 30. At that appointment she mentioned having nausea and emesis on
== END 2021-11-11 12:33 | disposition home or self-care (01) | DRG 641 ==
LOC: ANHED 12:55 → ANHICU 16:50 → ANH2MED 11-11 11:55 → ANHICU 11-12 10:48
PROVIDERS: Emergency Medicine; Internal Medicine; Internal Medicine Nephrology; Physician Assistant; Admitting Provider Hospitalist; Emergency Provider General Practice; PCP Internal Medicine; Visit Provider Family Medicine
DX: E87.1 Hypo-osmolality and hyponatremia (principal); Z68.41 Body mass index [BMI] 40.0-44.9, adult; E66.01 Morbid (severe) obesity due to excess calories; F10.10 Alcohol abuse, uncomplicated; E86.0 Dehydration; M35.00 Sjogren syndrome, unspecified; I10 Essential (primary) hypertension; K21.9 Gastro-esophageal reflux disease without esophagitis; L40.9 Psoriasis, unspecified; F32.A Depression, unspecified; G47.30 Sleep apnea, unspecified; R23.3 Spontaneous ecchymoses; E88.89 Other specified metabolic disorders; Z90.49 Acquired absence of other specified parts of digestive tract
CPT/HCPCS: 36415; 36569; 70450; 71046; 80048; 80053; 81001; 82436; 82533; 82570; 82948; 83036; 83690; 83735; 83883; 83930; 83935; 84100; 84155; 84156; 84165; 84166; 84295; 84300; 84443; 85025; 85027; 85055; 85610; 85730; 93005; 96361; 96374; 99285; A9270; C1751; J0360; J0696; J0834; J1940; J2060; J2405; J2597; J3411; J7030; J7060; J7070; J7131

== ENCOUNTER 2021-11-19 14:48 | Outpatient (CLI) | payer BC, SELFPAY ==
--- NOTE | 2021-11-21 14:00 | WPDPFTINT ---
PFT Procedure Performed PFT Procedure Performed Spirometry with Pre/Post Bronchodilator Plethysmography (Lung Vol) Diffusing Cap (DLCO) Flow Vol Loop PFT Interpretation DOS: 11/20/2021 REQUESTING: Felipa Bernard NP REASON FOR TESTING: chronic cough PULMONARY FUNCTION TESTS Results are reliable and reproducible Spirometry: Pre bronchodilator FEV1 is 64%, 1.62 L, decreased. Pre bronchodilator FVC is 71%, 2.25 L, decreased. The FEV1/ FVC ratio is 72% within the normal range. FEF 25-75 is 45%, 1.14 L and decreased. After bronchodilator administration there is a 5% increase in the FVC, 74%, 2.36 L, and there is a 7% increase in the FEV1 to 68% of predicted, 1.74 L. These are not statistically significant improvement. There is a 20% increase in the FEF 25-75%. Lung volumes: Total lung capacity is 78%, 3.68 L, the low end of normal. Slow vital capacity is 71%, 2.25 L. ERV is 45%, 0.45 L, reduced. Residual volume is 84%, 1.43 L, normal. The RV /TLC % is increased 39%. Airway resistance is mildly increased. Diffusion: DLCO is 53% moderately reduced. DLCO/ VA is 77%, mildly decreased. Flow volume loop: Mild scooping of the expiratory limb with overall decreased dimension. IMPRESSION: Mild obstructive ventilatory impairment which is more significant in the small airways, insignificant response to bronchodilator, borderline restriction, mild air trapping and moderate diffusion impairment. This is a mixed pattern. The restriction may be attributed to elevated BMI. This study may represent a COPD/ asthma overlap. Clinical correlation is recommended. Lack of response to bronchodilator should not preclude use if clinically indicated. Vianey Negrete MD
== END 2021-11-19 14:49 | disposition home or self-care (01) ==
LOC: ANHPFT 14:50
PROVIDERS: PCP Internal Medicine; Visit Provider Nurse Practitioner
DX: R05.3 Chronic cough (principal); R94.2 Abnormal results of pulmonary function studies
CPT/HCPCS: 94060; 94726; 94729

== ENCOUNTER 2021-12-24 09:21 | Outpatient (CLI) | payer BC, SELFPAY ==
--- NOTE | ~2021-12-24 | CT_ITS ---
EXAMINATION: CT chest high resolution wo nm DATE: 12/24/2021 09:39 INDICATION: Cough, interstitial pulmonary disease TECHNIQUE: Computed tomography (CT) of the chest was performed without intravenous contrast. The dose -length product (DLP) was 583.28 mGy-cm. Automated exposure control and iterative reconstruction tech nique were employed. COMPARISON: None FINDINGS: There are subpleural reticular and groundglass opacities with a mid and lower lung zone pre dominance. A few smooth-walled areas of cystic change are noted in the upper lobes. There is no pleur al effusion or pneumothorax. No pathologically enlarged thoracic lymph nodes are identified. The hear t size is normal. IMPRESSION: 1. Chronic interstitial lung disease in a pattern of nonspecific interstitial pneumonia (NSIP). Reviewed, dictated and finalized at location F. IMPRESSION: 1. Chronic interstitial lung disease in a pattern of nonspecific interstitial p neumonia (NSIP).
== END 2021-12-24 09:22 | disposition home or self-care (01) ==
LOC: ANHIMG 09:23
PROVIDERS: PCP Internal Medicine; Visit Provider Nurse Practitioner Family
DX: J84.9 Interstitial pulmonary disease, unspecified (principal)
CPT/HCPCS: 71250

== ENCOUNTER 2021-12-26 08:00 | Outpatient (CLI) | payer BC, SELFPAY ==
--- NOTE | 2021-12-26 08:03 | ECHO_ITS ---
Patient Info Name: Meri Vincent Age: 51 years : 1970 Gender: Female Ht: 62 in Wt: 235 lbs BSA: 2.22 m2 HR: 69 bpm BP: 148 / 105 mmHg Technical Quality: Fair Exam Date: 12/26/2021 8:25 AM Exam Location: [facility] Patient Status: Outpatient Admit Date: 12/26/2021 Staff Ordering Physician: Felipa Bernard NP Spool Sander: Kiana Moyer RDCS Attending Provider: Jax Mitchell APRN Referring Physician: Marco Antonio MYERS; Exam Type: CA echo doppler color flow Study Info Indications I51.7 - Cardiomegaly Complete two-dimensional, color flow and Doppler transthoracic echocardiogram is performed. Summary 1. Complete two-dimensional, color flow and Doppler transthoracic echocardiogram is performed. 2. Left ventricular chamber dimension is normal. 3. Left ventricular systolic function is normal, estimated at 60-65%. 4. The left ventricular diastolic function is grade I diastolic dysfunction. 5. E/e' 10 is mildly elevated. 6. Global longitudinal strain is normal at -17.0%. 7. No pulmonary hypertension, estimated pulmonary arterial systolic pressure is 33 mmHg. Left Ventricle E/e' 10 is mildly elevated. Global longitudinal strain is normal at -17.0%. Left ventricular chamber dimension is normal. Left ventricular systolic function is normal, estimated at 60-65%. The left ventricular diastolic function is grade I diastolic dysfunction. Right Ventricle Right ventricular systolic function is normal with normal TAPSE 2.4 cm. Right ventricular chamber dimension is normal. Left Atria Left atrial chamber dimension is normal. Right Atria Right atrial chamber dimension is normal. Aortic Valve The aortic valve is trileaflet. There is no aortic valve stenosis. There is no aortic valve regurgitation. Pulmonic Valve There is no pulmonic regurgitation. Mitral Valve There is no mitral valve stenosis. There is no mitral valve regurgitation. Tricuspid Valve There is no tricuspid valve regurgitation. No pulmonary hypertension, estimated pulmonary arterial systolic pressure is 33 mmHg. Pericardium/Pleural There is no pericardial effusion. Inferior Vena Cava Normal inferior vena cava with >50% collapse upon inspiration consistent with normal right atrial pressure, 5 mmHg. Aorta The aortic root size at the sinus of Valsalva is normal. Left Ventricular Outflow Tract Name Value Normal LVOT 2D LVOT Diameter 2.0 cm LVOT Doppler LVOT Peak Gradient 4 mmHg LVOT Mean Gradient 2 mmHg LVOT VTI 23 cm LVOT VTI/AV VTI Ratio 0.9 LVOT Stroke Volume 71 ml LVOT CO 5.2 l/min LVOT CI 2.4 l/min/m2 Pulmonic Valve Name Value Normal RVOT Doppler
== END 2021-12-26 08:01 | disposition home or self-care (01) ==
LOC: ANHCARD 08:01
PROVIDERS: PCP Internal Medicine; Visit Provider Nurse Practitioner Family
DX: I51.7 Cardiomegaly (principal)
CPT/HCPCS: 93306

== ENCOUNTER 2022-01-01 09:27 | Outpatient (CLI) | payer BC, SELFPAY ==
[2022-01-01 09:30] VITALS: PULSE 73; O2SAT 94
[2022-01-01 09:35] VITALS: PULSE 88; O2SAT 86
[2022-01-01 09:40] VITALS: PULSE 92; O2SAT 88
[2022-01-01 09:45] VITALS: PULSE 97; O2SAT 91
[2022-01-01 09:57] VITALS: PULSE 75; O2SAT 94
== END 2022-01-01 09:28 | disposition home or self-care (01) ==
LOC: ANHPFT 09:28
PROVIDERS: PCP Internal Medicine; Visit Provider Nurse Practitioner Family
DX: J84.9 Interstitial pulmonary disease, unspecified (principal)
CPT/HCPCS: 94618

== ENCOUNTER 2022-01-13 08:10 | Outpatient (CLI) | payer BC, SELFPAY ==
--- NOTE | 2022-01-20 14:04 | WPDHOMESLEEP ---
Sleep Study - Home Unattended Date of Study: 01/13/22 Ordering Provider: Felipa Bernard NP Interpreting Provider: Evelia Vinson, DO Home Sleep Study Type: Apnea Link Air Height: 1.57 m Weight: 106.141 kg Body Mass Index: 42.7 Neck Circumference (inches): 18.5 [place]: 10 Reason for Sleep Study Snoring, gasping for air while sleeping Sleep History The patient is a 51y/o female with hypertension, GERD, psoriasis, Sjogren syndrome and interstitial lung disease had a sleep study ordered by her primary care for evaluation of sleep apnea. The patient frequently awakens from sleep short of breath. She frequently awakens at night with heartburn, belching or. She frequently snores loudly others complain. She constantly has trouble sleeping when she has a while. She frequently wakes up gasping for air throughout the night. She frequently has breathing problems at night observed by herself or others. She frequently sweats excessively at night. She frequently has heart palpitations or irregular beats no drooling. She rarely falls asleep during the day but never while driving. She rarely experiences loss of muscle tone when extremely emotional. She occasionally has trouble at school or work due to sleepiness. She occasionally feels unable to move while waking up or falling asleep. She rarely experiences vivid dreamlike scenes upon awakening or falling asleep. She occasionally has nightmares and occasionally remembers her dreams. She occasionally has thoughts racing through her mind. She occasionally feels sad, depressed and anxious. She frequently has muscular tension. She frequently notices parts of her body jerk. She occasionally kicks during the night. She occasionally has a crawling and aching feelings in her legs as well sleeping irritability. He frequently grinds her teeth during sleep but rarely awakens of morning jaw pain. She is frequently bothered by pain during the day and occasionally awakened by pain during the night. She constantly wakes up feeling stiff the morning. She constantly wakes up with sore achy muscles. She constantly wakes up with pain in neck, spine and other joints. The patient goes to bed at 10:00 p.m. on both weekdays and weekends. It takes her 1 hour to fall asleep. She will wake up hourly to use the restroom. It takes her 10 minutes to fall back asleep. She wakes up at 7:30 a.m. on both weekdays and weekends. She typically gets 4 hours of sleep per night. She does not stay in the bed after waking up in the morning. She currently lives with her . She does not consume any caffeinated beverages within 2 hours of bedtime. She does not engage in physical exercise before bedtime. She will watch television before falling asleep. She does not take naps in the afternoon or the evening. She drinks 5 caffeinated beverages per day. She denies tobacco, alcohol and recreational drug use. [facility] Past Medical History Medical History Alcohol abuse Cardiomegaly Connective tissue disease Gastroesophageal reflux disease Hypertension Interstitial lung disease Psoriasis Sjogren's syndrome Suspected sleep apnea Surgical History Surgical History History of appendectomy Family History Family History Father , [place] 2018 Acute myocardial infarction Hypertension Mother Fibromyalgia Hypothyroidism Social History Social History Social History: Surrogate decision maker: Nader Jacobo, . Code status: Full code. Smoking status: Never smoker Second hand tobacco smoke exposure: No Alcohol intake: former Alcohol use details: Longstanding history of alcohol abuse though she has been sober for upwards of 9 to 10 years. Reports drinking approximately 12
[2022-01-20 14:12] VITALS: BMI 42.7
== END 2022-01-14 13:19 | disposition home or self-care (01) ==
PROVIDERS: PCP Internal Medicine; Visit Provider Nurse Practitioner
DX: G47.10 Hypersomnia, unspecified (principal); G47.33 Obstructive sleep apnea (adult) (pediatric)
CPT/HCPCS: 95806

== ENCOUNTER 2022-01-22 10:09 | Outpatient (CLI) | payer BC, SELFPAY ==
--- NOTE | ~2022-01-22 | NM_ITS ---
EXAMINATION: NM barbra stress w perfusion DATE: 01/22/2022 12:59 INDICATION: Dyspnea TECHNIQUE: Rest images were obtained following intravenous administration of 9.7 mCi Tc99m tetrofosmi n (Myoview). The patient was infused intravenously with Lexiscan (Regadenoson). Then, 30 mCi Tc99m te trofosmin (Myoview) was administered intravenously, and stress images were obtained in supine positio n. Repeat post stress imaging was obtained in the prone position. Data was reconstructed into short a xis and horizontal and vertical long axis SPECT images. Gated SPECT images were also obtained. COMPARISON: None. FINDINGS: There is no definite reversible or fixed perfusion abnormality to suggest ischemia or infar ction. There is normal left ventricular chamber size, wall motion and ejection fraction. Left ventr icular ejection fraction measures >70%. IMPRESSION: 1. Normal myocardial perfusion at rest and during stress. 2. Left ventricular ejection fraction measuring >70%. Reviewed, dictated and finalized at location A.
--- NOTE | 2022-01-22 09:32 | EST_ITS ---
Patient Info Name: Meri Vincent Age: 51 years : 1970 Gender: Female Ht: 62 in Wt: 235 lbs BSA: 2.22 m2 HR: 81 bpm BP: 157 / 70 mmHg Heart Rhythm: Sinus Rhythm Exam Date: 01/22/2022 11:41 AM Exam Location: [facility] Stress Patient Status: Outpatient Admit Date: 01/22/2022 Staff Ordering Physician: Jax Mitchell APRN Attending Provider: Jax Mitchell APRN Exercise Technologist: Sarah Lundberg CT Exercise Physician: Mitesh Neal DO Exam Type: CA stress barbra w NM Study Info Indications R06.02 - Shortness of breath A regadenoson stress test was performed. Summary 1. 1. Negative lexiscan stress test for ischemic ST changes by ECG criteria. 2. 2. Baseline hypertension. 3. 3. Nuclear scan to follow and will be reported separately. Please correlate with it. 4. 4. Patient informed of the above results. Protocol: Lexiscan Stress ECG Details Stage: REST Duration (min): 1 min : 46 sec HR (bpm): 79 SBP (mmHg): 157 DBP (mmHg): 70 Stage: REST Duration (min): 11 min : 49 sec HR (bpm): 83 SBP (mmHg): 157 DBP (mmHg): 70 Stage: STAGE 1 Duration (min): 0 min : 59 sec HR (bpm): 95 SBP (mmHg): 118 DBP (mmHg): 60 Stage: RECOVERY Duration (min): 1 min : 0 sec HR (bpm): 93 SBP (mmHg): 118 DBP (mmHg): 60 Stage: RECOVERY Duration (min): 2 min : 0 sec HR (bpm): 93 SBP (mmHg): 118 DBP (mmHg): 60 Stage: RECOVERY Duration (min): 3 min : 0 sec HR (bpm): 90 SBP (mmHg): 148 DBP (mmHg): 64 Stage: RECOVERY Duration (min): 4 min : 0 sec HR (bpm): 91 SBP (mmHg): 148 DBP (mmHg): 64 Stage: RECOVERY Duration (min): 4 min : 48 sec HR (bpm): 87 SBP (mmHg): 209 DBP (mmHg): 70 Rest HR: 83 bpm Peak HR: 95 bpm Rest Sys BP: 157 mmHg Peak Sys BP: 209 mmHg Max Pred HR: 169 bpm % Max Pred HR: 56 % Target HR: 144 bpm Max RPP: 19,855 bpm*mmHg Termination Reason: Completed protocol Cardiac Symptoms: Shortness of breath, Nausea Total Time: 1 min : 0 sec Rest Snyder BP: 70 mmHg Peak Snyder BP: 70 mmHg Total Dose: 0.4 mg Resting ECG Sinus rhythm. Stress ECG No ST changes. Arrhythmias None. Report Signatures
== END 2022-01-22 10:10 | disposition home or self-care (01) ==
PROVIDERS: PCP Internal Medicine; Visit Provider Nurse Practitioner Family
DX: R06.02 Shortness of breath (principal); R06.00 Dyspnea, unspecified
CPT/HCPCS: 78452; 93017; A9502; J2785

== ENCOUNTER 2022-01-24 07:32 | Outpatient (CLI) | payer BC, SELFPAY ==
--- NOTE | 2022-02-18 17:53 | WPDSLEEPSTUD ---
Sleep Study Date of Study: 01/24/22 Ordering Provider: Felipa Bernard NP Interpreting Physician: Evelia Vinson DO Sleep Study Type: Split Polysomnogram Height: 1.57 m Weight: 107.048 kg Body Mass Index: 43.1 Neck Circumference (inches): 18.5 Wann: 10 Reason for Sleep Study The patient had a home sleep study on 01/13/2022 that showed an overall AHI of 26.4 with desaturation down to 74%.? Sleep History The patient is a 51y/o female with hypertension, GERD, psoriasis, Sjogren syndrome and interstitial lung disease had a sleep study ordered by her primary care for evaluation of sleep apnea.? The patient frequently awakens from sleep short of breath.? She frequently awakens at night with heartburn, belching or.? She frequently snores loudly others complain.? She constantly has trouble sleeping when she has a while.? She frequently wakes up gasping for air throughout the night.? She frequently has breathing problems at night observed by herself or others.? She frequently sweats excessively at night.? She frequently has heart palpitations or irregular beats no drooling.? She rarely falls asleep during the day but never while driving.? She rarely experiences loss of muscle tone when extremely emotional.? She occasionally has trouble at school or work due to sleepiness.? She occasionally feels unable to move while waking up or falling asleep.? She rarely experiences vivid dreamlike scenes upon awakening or falling asleep.? She occasionally has nightmares and occasionally remembers her dreams.? She occasionally has thoughts racing through her mind.? She occasionally feels sad, depressed and anxious.? She frequently has muscular tension.? She frequently notices parts of her body jerk.? She occasionally kicks during the night.? She occasionally has a crawling and aching feelings in her legs as well sleeping irritability.? He frequently grinds her teeth during sleep but rarely awakens of morning jaw pain.? She is frequently bothered by pain during the day and occasionally awakened by pain during the night.? She constantly wakes up feeling stiff the morning.? She constantly wakes up with sore achy muscles.? She constantly wakes up with pain in neck, spine and other joints.? The patient goes to bed at 10:00 p.m. on both weekdays and weekends.? It takes her 1 hour to fall asleep.? She will wake up hourly to use the restroom.? It takes her 10 minutes to fall back asleep.? She wakes up at 7:30 a.m. on both weekdays and weekends.? She typically gets 4 hours of sleep per night.? She does not stay in the bed after waking up in the morning.? She currently lives with her .? She does not consume any caffeinated beverages within 2 hours of bedtime.? She does not engage in physical exercise before bedtime.? She will watch television before falling asleep.? She does not take naps in the afternoon or the evening. She drinks 5 caffeinated beverages per day.? She denies tobacco, alcohol and recreational drug use. [facility] Past Medical History Medical History Alcohol abuse Cardiomegaly Connective tissue disease Gastroesophageal reflux disease Hypertension Interstitial lung disease Psoriasis Sjogren's syndrome Suspected sleep apnea Surgical History Surgical History History of appendectomy Family History Family History Father , [place] 2018 Acute myocardial infarction Hypertension Mother Fibromyalgia Hypothyroidism Social History Social History Social History: Surrogate decision maker: Nader Jacobo, . Code status: Full code. Smoking status: Never smoker Second hand tobacco smoke exposure: No Alcohol intake: former Alcohol use details: Longstanding history of alcohol abuse though she has been sober for upw
[2022-02-18 17:57] VITALS: BMI 43.1
== END 2022-01-25 06:45 | disposition home or self-care (01) ==
LOC: ANHCSM 07:33
PROVIDERS: PCP Internal Medicine; Visit Provider Nurse Practitioner
DX: G47.33 Obstructive sleep apnea (adult) (pediatric) (principal)
CPT/HCPCS: 95811

== ENCOUNTER 2022-02-25 15:49 | Inpatient (IN) | payer BC, SELFPAY ==
[2022-02-25] VITALS (14 sets, daily range): BP systolic 120–148; BP diastolic 87–99; PULSE 70–85; RESP 12–18; TEMP 35.9–36.6; O2SAT 97–100; BMI 42.8
--- NOTE | ~2022-02-25 | XR_ITS ---
EXAMINATION: XR chest 1V portable DATE: 02/26/2022 05:54 INDICATION: Hyponatremia. TECHNIQUE: A single frontal view of the chest was obtained. COMPARISON: Chest single view 02/25/2022, chest CT 12/24/2021 FINDINGS: There is mild atelectasis versus scarring in the lower lung zones. No pleural effusion or p neumothorax. The heart size is normal. Mediastinal lipomatosis is noted. IMPRESSION: 1. Mild atelectasis versus scarring in the lower lung zones. Reviewed, dictated and finalized at location A.
--- NOTE | ~2022-02-25 | XR_ITS ---
EXAMINATION: XR chest PICC line DATE: 02/27/2022 11:58 INDICATION: Central line placement. TECHNIQUE: A single frontal view of the chest was obtained. COMPARISON: Chest single view 02/26/2022 FINDINGS: There is no pneumonia, pleural effusion, or pneumothorax. The heart size is normal. Mediast inal lipomatosis is noted. A right upper extremity peripherally inserted central venous catheter (PIC C) is seen with tip at the superior cavoatrial junction. IMPRESSION: 1. PICC tip at the superior cavoatrial junction. Reviewed, dictated and finalized at location A.
--- NOTE | ~2022-02-25 | XR_ITS ---
EXAMINATION: XR chest 1V portable Exam Date/Time: 02/25/2022 16:50 CDT HISTORY: sob, LOW SODIUM, HX LUNG DISEASE,HX HTN, HX BRONCITIS Comparison: 11/07/2021. RESULT: Lines, tubes, and devices: None. Lungs and pleura: Minimal scattered reticular opacities. Low lung volumes. Cardiomediastinal silhouette: Stable. Other: No acute osseous or upper abdominal finding. IMPRESSION: Low lung volumes with bronchovascular crowding and possible component of mild interstitial edema. Reviewed, dictated and finalized at location K. IMPRESSION: Low lung volumes with bronchovascular crowding and possible component of mild i nterstitial edema.
[2022-02-25 16:07] LABS: Basophils Percent Auto 0.2 % (0.2-1.2); Eosinophils Absolute Auto 0.1 K/mm3 (0-0.3); Eosinophils Percent Auto 0.7 % (0-4.4); Hematocrit 34.1 % (37.0-47.0); Hemoglobin 12.4 g/dL (12.0-15.0); Immature Granulocyte Absolute 0.12 K/mm3 (0.00-0.031); Immature Granulocyte Percent A 1.3 % (0-0.5); Lymphocytes Percent Auto 4.4 % (18.3-44.2); Mean Corpuscular HGB Conc 36.4 g/dl (32-36); Mean Corpuscular Hemoglobin 31.8 pg (26-34); Mean Corpuscular Volume 87.4 fl (80-100); Mean Platelet Volume 8.7 fl (7.4-10.4); Monocytes Absolute Auto 0.7 K/mm3 (0.1-0.6); Monocytes Percent Auto 7.7 % (2.6-8.5); Neutrophils Absolute Auto 7.9 K/mm3 (1.3-6.7); Neutrophils Percent Auto 85.7 % (45.5-73.1); Platelet Count Result 243 k/mm3 (150-375); Red Cell Distribution Width 12.6 % (11.5-14.5); White Blood Count 9.2 K/mm3 (4.5-10.0)
[2022-02-25 16:25] LABS: Alanine Aminotransferase 28 U/L (6-35); Albumin Level 4.7 g/dL (3.5-5.1); Alkaline Phosphatase 85 U/L (38-126); Anion Gap 12 mmol/L (8-16); Aspartate Amino Transferase 50 U/L (14-36); Blood Urea Nitrogen 12 mg/dL (7-17); Calcium 8.9 mg/dL (8.4-10.2); Carbon Dioxide 20 mmol/L (22-30); Chloride 81 mmol/L (98-107); Estimated CRCL calculation 93 ml/min; Estimated Glomerular Filt Rate > 60; Glucose 113 mg/dL (65-110); Potassium 4.2 mmol/L (3.4-5.0); Sodium 113 mmol/L (137-145)
[2022-02-25 16:34] LABS: Appearance Urine Clear (Clear); Bilirubin Urine 1+ (Negative); Color Urine Yellow (Yellow); Glucose Urine UA Negative (Negative); Ketones Urine Trace mg/dL (Negative); Leukocyte Esterase Ur Negative LEU/UL (Negative); Nitrate Urine Negative (Negative); Protein Urine 1+ mg/dL (Negative); Specific Grav Ur 1.015 (1.001-1.035); pH Urine 5.5 (5.0-9.0)
[2022-02-25 16:38] LABS: Bacteria Urine Trace /hpf; Hyaline Casts Urine 15-19 /lpf; Mucus Urine Rare /lpf; RBC Urine 0-2 /hpf (0-2); Squamous Epithelial Cell Urine Occasional /hpf (Few)
[2022-02-25 16:40] LABS: Add Urine Microscopic? YES; Blood Urine Trace-Intact (Negative)
--- NOTE | 2022-02-25 16:40 | PM.IMHP ---
H&P: HPI History of Present Illness Date/Time: 02/25/22 16:40 Chief Complaint: Abnormal labs Narrative: This is a 51-year-old female patient who has a history of alcoholism and water intoxication. She also has a history of sjourns syndrome with complaints the of in questionable thirst. The patient stated that she has quit drinking alcohol since her last admission on 01/13/2022. She states that she is constantly drinking water due to her dry mouth. She is also on diuretics. The patient tells me that her outside labs said that her sodium was 105 so she was sent to the emergency room and her sodium was 113. Repeat sodium was again was 113. Nephrology has been consulted. Nephrology recommended holding off IV fluids for the next 3 hours and placing her on a 1200 mL fluid restriction. She was only given a Tylenol down stairs in the emergency room. The patient has petechiae on her lower extremities and she stated that she is going to see a commercial drone software developer. Patient is being admitted to inpatient services on the date of service of 02/25/2022 Review of Systems Review of Systems: All systems reviewed & are unremarkable except as noted in HPI and below Constitutional: Constitutional: Reports as per HPI and Reports no additional constitutional complaints Eyes: Eyes: Reports as per HPI and Reports no additional eye complaints ENT: Reports system reviewed and no additional complaints, except as documented and Reports Normal hearing present Cardiovascular: Cardiovascular: Reports no additional cardiovascular complaints Respiratory: Respiratory: Reports no additional respiratory complaints and Reports no additional respiratory complaints Gastrointestinal: Gastrointestinal: Reports as per HPI and Reports no additional gastrointestinal complaints Musculoskeletal: Musculoskeletal: Reports no additional musculoskeletal complaints Integumentary/Breasts: Skin/Breast: Reports system reviewed and no additional complaints, except as docu and Reports as per HPI Neurologic: Reports system reviewed and no additional complaints, except as documented, Reports as per HPI and Reports Normal hearing present Psychiatric: Psychiatric: Reports no additional psychiatric complaints and Reports as per HPI Endocrine: Endocrine: Reports no additional endocrine complaints Hematologic/Lymphatic: Hematologic/Lymphatic: Reports no additional hematologic/lymphatic complaints Allergic/Immunologic: Allergic/Immunologic: Reports no additional allergic/immunologic complaints [facility] Past Medical History Medical History (Updated 02/25/22 @ 21:44 by Vida Burleson NP) Alcohol abuse Cardiomegaly Connective tissue disease Gastroesophageal reflux disease Hypertension Interstitial lung disease Psoriasis Sjogren syndrome with lung involvement Sjogren's syndrome Suspected sleep apnea Surgical History Surgical History History of appendectomy Family History Family History Father , [place] 2017 Acute myocardial infarction Hypertension Mother Fibromyalgia Hypothyroidism Social History Social History Social History: Surrogate decision maker: Nader Jacobo, .no biologic children but has a stepchild. She stated that she quit drinking since her last admission in October Code status: Full code. Smoking status: Never smoker Second hand tobacco smoke exposure: No Alcohol intake: former Alcohol use details: Longstanding history of alcohol abuse though she has been sober for upwards of 9 to 10 years. Reports drinking approximately 12 White Claws a day at this time. Substance use: never Additional living arrangements comments: The patient lives with her in [place]. Recently moved here from [place]. 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
--- NOTE | 2022-02-25 16:48 | ED.GENADULT ---
HPI - General Adult General Chief complaint: Recheck/Abnormal Lab/Rx Stated complaint: Low sodium, nausea Time Seen by Provider: 02/25/22 15:54 Source: patient Mode of arrival: ambulatory Limitations: no limitations History of Present Illness HPI narrative: 51-year-old with a history of recurrent hyponatremia, Sjogren's syndrome here with complaints of abnormal labs. Patient states that she went to see her primary doctor for bronchitis had routine labs drawn which showed a sodium of 105. Patient states that she was confused with yesterday however today she is feeling better. Patient states that she constantly drinks water for dry mouth. She denies alcohol use. She is on Lasix every other day. She is not on any antidepressant. Onset (ago): day(s) (1) Associated symptoms: denies other symptoms Related Data Home Medications Medication Instructions Recorded Confirmed nintedanib 150 mg capsule (Ofev) 150 mg PO Q12H 01/10/22 02/24/22 Allergies Allergy/AdvReac Type Severity Reaction Status Date / Time prochlorperazine Allergy Intermediate facial Verified 02/25/22 15:57 [From Compazine] swelling Review of Systems Review of Systems: All systems reviewed & are unremarkable except as noted in HPI and below Constitutional: Constitutional: Reports no additional constitutional complaints Eyes: Eyes: Reports no additional eye complaints ENT: Reports system reviewed and no additional complaints, except as documented Cardiovascular: Cardiovascular: Reports no additional cardiovascular complaints Respiratory: Respiratory: Reports no additional respiratory complaints Gastrointestinal: Gastrointestinal: Reports no additional gastrointestinal complaints Musculoskeletal: Musculoskeletal: Reports no additional musculoskeletal complaints Neurologic: Reports system reviewed and no additional complaints, except as documented [facility] Past Medical History Medical History Alcohol abuse Cardiomegaly Connective tissue disease Gastroesophageal reflux disease Hypertension Interstitial lung disease Psoriasis Sjogren's syndrome Suspected sleep apnea Surgical History Surgical History History of appendectomy Family History Family History Father , 2017 Acute myocardial infarction Hypertension Mother Fibromyalgia Hypothyroidism Social History Social History Social History: Surrogate decision maker: Nader Jacobo, .no bio child Code status: Full code. Smoking status: Never smoker Second hand tobacco smoke exposure: No Alcohol intake: former Alcohol use details: Longstanding history of alcohol abuse though she has been sober for upwards of 9 to 10 years. Reports drinking approximately 12 White Claws a day at this time. Substance use: never Additional living arrangements comments: The patient lives with her in [place]. Recently moved here from [place]. 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 HEAD: Normocephalic, atraumatic. EYES: PERRLA and EOMI. ENT: Nares clear, no rhinorrhea or epistaxis. Mucous membranes moist. NECK: Supple. CHEST: Clear to auscultation. No respiratory distress. HEART: Regular rate and rhythm. No murmur heard. Normal peripheral pulses. ABDOMEN: Soft, nontender, nondistended, normal active bowel sounds. EXTREMITIES: Normal range of motion. No edema. SKIN: Warm, dry, no rash. NEURO: No focal deficits. Alert and oriented x3. PSYCH: Normal mood and affect. Course Course Emergency Course: Discussed with Dr. Newman recommended fluid restriction repeat sodium levels in 3 hours. No IV fluids at this time. Vital Sign
[2022-02-25 16:53] LABS: Ethanol < 10 mg/dL (<10)
[2022-02-25 19:26] LABS: Anion Gap 12 mmol/L (8-16); Blood Urea Nitrogen 13 mg/dL (7-17); Carbon Dioxide 22 mmol/L (22-30); Chloride 79 mmol/L (98-107); Estimated CRCL calculation 93 ml/min; Estimated Glomerular Filt Rate > 60; Glucose 109 mg/dL (65-110); Potassium 4.1 mmol/L (3.4-5.0); Sodium 113 mmol/L (137-145)
--- NOTE | 2022-02-25 21:30 | ADMGEN ---
This patient, Meri Vincent, was admitted to IMU Room 232-01 on 02/25/22 at 1920. Patient/family oriented to hospital policies and general routines including ID bracelet, bed and alarms, visiting hours, pain management, procedures, bathroom and other care routines, personal items, smoking policy, room service/diet, and visiting hours. Information on how to activate the Rapid Response Team has been discussed. Patient/Family are encouraged to report perceived risks to care and to ask questions if they do not understand what they are told or what they should do.
[2022-02-25] MEDS: BENZONATATE 100 MG CAPSULE 200 MG PO (22:08)
[2022-02-25 22:23] LABS: Sodium 114 mmol/L (137-145)
[2022-02-25] MEDS: predniSONE 10 MG TABLET PO (22:53)
[2022-02-25 23:08] LABS: Total Protein Urine Random 19 mg/dL; Ur Ttl Prot Creatinine Ratio 0.11 mg/mg (0-0.20)
[2022-02-25 23:36] LABS: Sodium Urine Random 8 meq/L
[2022-02-26] VITALS (19 sets, daily range): BP systolic 120–152; BP diastolic 80–92; PULSE 61–81; RESP 18–21; TEMP 36–36.7; O2SAT 97–100
[2022-02-26 01:17] LABS: Sodium 115 mmol/L (137-145)
[2022-02-26] MEDS: ACETAMINOPHEN 325 MG TABLET 650 MG PO (02:22)
[2022-02-26 05:43] LABS: Basophils Percent Auto 0.2 % (0.2-1.2); Eosinophils Percent Auto 0.2 % (0-4.4); Hematocrit 32.6 % (37.0-47.0); Hemoglobin 11.6 g/dL (12.0-15.0); Immature Granulocyte Absolute 0.06 K/mm3 (0.00-0.031); Lymphocytes Absolute Auto 0.39 K/mm3 (0.9-3.2); Lymphocytes Percent Auto 6.4 % (18.3-44.2); Mean Corpuscular HGB Conc 35.6 g/dl (32-36); Mean Corpuscular Hemoglobin 31.6 pg (26-34); Mean Corpuscular Volume 88.8 fl (80-100); Mean Platelet Volume 8.9 fl (7.4-10.4); Monocytes Absolute Auto 0.5 K/mm3 (0.1-0.6); Monocytes Percent Auto 7.7 % (2.6-8.5); Neutrophils Absolute Auto 5.2 K/mm3 (1.3-6.7); Neutrophils Percent Auto 84.5 % (45.5-73.1); Platelet Count Result 213 k/mm3 (150-375); Red Blood Count 3.67 M/mm3 (4.2-5.4); Red Cell Distribution Width 12.6 % (11.5-14.5); White Blood Count 6.1 K/mm3 (4.5-10.0)
[2022-02-26 06:25] LABS: Alanine Aminotransferase 23 U/L (6-35); Alkaline Phosphatase 81 U/L (38-126); Anion Gap 9 mmol/L (8-16); Aspartate Amino Transferase 36 U/L (14-36); Bilirubin,Total 0.6 mg/dL (0.2-1.3); Blood Urea Nitrogen 13 mg/dL (7-17); Calcium 8.2 mg/dL (8.4-10.2); Carbon Dioxide 24 mmol/L (22-30); Chloride 83 mmol/L (98-107); Estimated CRCL calculation 94 ml/min; Estimated Glomerular Filt Rate > 60; Glucose 123 mg/dL (65-110); Potassium 3.8 mmol/L (3.4-5.0); Sodium 116 mmol/L (137-145)
[2022-02-26] MEDS: SODIUM CHLORIDE 0.9% IV 1,000 ML 75 ML IV CONT (08:35)
[2022-02-26] MEDS: predniSONE 10 MG TABLET PO ×2 (08:35→18:27)
[2022-02-26] MEDS: LOSARTAN POTASSIUM 100 MG TABLET PO (08:35)
[2022-02-26] MEDS: PANTOPRAZOLE 40 MG TABLET PO (08:35)
[2022-02-26] MEDS: MAGNESIUM OXIDE 400 MG TABLET PO (08:35)
[2022-02-26] MEDS: METOPROLOL SUCCINATE EXT REL 100 MG TABCR PO (08:35)
[2022-02-26] MEDS: THIAMINE HCL 100 MG TABLET PO (08:35)
[2022-02-26] MEDS: FOLIC ACID 1 MG TABLET PO (08:36)
[2022-02-26] MEDS: BENZONATATE 100 MG CAPSULE 200 MG PO ×2 (08:36→21:59)
[2022-02-26] MEDS: SALIVA SUBSTITUTE RINSE 473 ML BOTTLE 15 ML PO (08:36)
[2022-02-26] MEDS: ENOXAPARIN 40 MG/0.4 ML SYRINGE SUB-Q (08:36)
--- NOTE | 2022-02-26 09:07 | PM.IMPN ---
Progress Note: A&P Assessment and Plan (1) Hyponatremia: Code(s): E87.1 - Hypo-osmolality and hyponatremia Status: Acute Assessment and Plan: Presented to ED under direction of primary care provider after having outpatient labs reveal marked hyponatremia. Patient follows with Nephrology and reports outpatient labs last month revealed sodium of 129. Sodium 113 at presentation Appreciate nephrology consultation Continue with 1200 mL fluid restriction daily Patient on sodium chloride 75 mL/hr Laboratory workup including cortisol and protein electrophoresis pending. TSH is within normal limits Patient admits to excess water intake Continue to monitor sodium levels closely Lasix on hold (2) Hypertension: Qualifiers: Hypertension type: primary hypertension Qualified Code(s): I10 - Essential (primary) hypertension Code(s): I10 - Essential (primary) hypertension Status: Chronic Assessment and Plan: Blood pressure reviewed and has been reasonably controlled. Last BP 120/81 Continue home losartan and metoprolol Monitor BP trends (3) Petechial rash: Code(s): R23.3 - Spontaneous ecchymoses Status: Acute Assessment and Plan: Chronic intermittent petechial rash on bilateral anterior shins Patient is scheduled with Rheumatology this month (4) Depression: Qualifiers: Depression Type: unspecified Qualified Code(s): F32.A - Depression, unspecified Code(s): F32.A - Depression, unspecified Status: Acute Assessment and Plan: No acute issues Patient is not on any medications for this. Appears her SSRI was discontinued due to hyponatremia (5) Sjogren syndrome with lung involvement: Code(s): M35.02 - Sjogren syndrome with lung involvement Status: Acute Assessment and Plan: No acute issues at this time Continue with saliva substitute Rheumatology follow-up scheduled (6) EBENEZER (obstructive sleep apnea): Code(s): G47.33 - Obstructive sleep apnea (adult) (pediatric) Status: Acute Assessment and Plan: New diagnosis Patient reports she has not received her CPAP yet CV have ordered during hospitalization Subjective Date/time seen: 02/26/22 09:07 Interval history: Date of service: 02/26/2022 Meri Vincent is a 51-year-old female with a history of alcohol abuse (quit in October 2021), Sjogren syndrome, this connective tissue disease, ILD, hypertension, psoriasis, and hyponatremia with recent admission related to this in October 2021 who is seen in follow-up again for hyponatremia. She is feeling well today. Her only complaint at this time is a cough that is productive of yellowish sputum. She denies shortness of breath. No fevers or chills. No chest pain or palpitations. Endorsed nausea but after receiving a dose of Zofran this has resolved. She has no nausea at this time. Her diarrhea has resolved. She reports she is urinating regularly and denies dysuria or hematuria. She does complain of dry mouth, which has worsened with her fluid restriction. She has a rash on her bilateral lower legs that she states comes and goes intermittently. Occasionally it will appear on her chest, though she does not have a rash on her chest this time. She states it is it is nonpruritic and it is not raised, she cannot feel it stating it is ?under the skin.? Denies dizziness or lightheadedness. Review of Systems Review of Systems: All systems reviewed & are unremarkable except as noted in HPI and below Exam Narrative: General: Well-nourished, well-appearing 51-year-old female, sitting up in bed, comfortable, NARD Neuro: awake, alert and oriented x4, speech clear, no focal neuro deficits noted HEENMT: normocephalic, atraumatic, EOMI, sclerae anicteric Respiratory: clear to auscultation bilaterally, nonlabored breathing Cardio: regular rate, regular rhythm with S1-S2 Abdomen:
[2022-02-26] MEDS: FLUTICASONE/SALMETEROL 115-21 MCG INHALER 1 PUFF 2 PUFF INHALATION ×2 (10:04→22:00)
[2022-02-26 11:05] LABS: Sodium 115 mmol/L (137-145)
--- NOTE | 2022-02-26 11:23 | PC.NURSE ---
Notified Dr. Newman of critical sodium of 115. New order for start Lasix 20mg PO BID, first dose now. Recheck sodium at [address] Newman with results.
--- NOTE | 2022-02-26 12:47 | PM.CNNEP ---
Assessment and Plan Additional Plan 1. Lily has chronic hyponatremia. She has SIADH , either idiopathic or possibly due to lung issues. All of the other issues that she had had before are not applicable anymore. In addition she drinks excessively and so overwhelmed her decreased ability to excrete free water.. 2. The patient has acute hyponatremia. She is probably drinking extra fluid even over what she normally would because of her bronchitis. Interestingly her urine specific gravity is not very low, consistent with both water drinking and an element of SIADH. Will stop the pantoprazole and use famotidine. Her sodium level came up a little bit from 113-116. If it continues to rise we will just watch it on fluid restriction. However if it stalls we can add another element to the treatment of the hyponatremia. Patient has no symptoms and so we do not need to use emergent 3% saline. Consider 3% saline if the conservative measures do not work. 3. Patient has Sjogren syndrome and also connective tissue disease with a new rash on her legs. She is going to see Rheumatology at [facility]. 4. The patient has sleep apnea and uses a CPAP machine. 5. The patient has alcohol abuse disorder. She has stopped drinking about a month ago. History of Present Illness Reason for Consult Consult date: 02/26/22 Chief Complaint Chief complaint: Hyponatremia History of Present Illness Narrative: Lily is a very pleasant 51-year-old lady who has chronic hyponatremia. She also has history of alcoholism although she quit drinking about a month ago, Sjogren syndrome, cardiomegaly, connective tissue disease, GERD, hypertension, interstitial lung disease, suspected sleep apnea. Patient says she saw her primary care physician about a week ago and her sodium level was 129. A few days ago the patient developed sinus condition and some nausea. Her primary care doctor asked her to repeat the sodium level and it was only 105 in the office so he sent her to the ER. She was seen and her sodium level was 113. She was admitted to the floor. She was not given IV fluids but she was put on a fluid restriction. Repeat sodium is 116 this morning. The patient says she has been drinking a lot of fluid. She has been eating okay she says. She does not take any narcotics, antidepressants, or diuretics. She does take pantoprazole. Her chronic hyponatremia is felt to be due to excessive free water intake, alcohol, SSRI (although the patient is off of this). She has had tests looking for underlying issues such as cancer and GOLD BURNISHER disease but these were negative. She does have pulmonary fibrosis which may contribute as well. Review of Systems Constitutional: Constitutional: Reports no additional constitutional complaints Eyes: Eyes: Reports no additional eye complaints ENT: Reports system reviewed and no additional complaints, except as documented Cardiovascular: Cardiovascular: Reports no additional cardiovascular complaints Respiratory: Respiratory: Reports no additional respiratory complaints Gastrointestinal: Gastrointestinal: Reports no additional gastrointestinal complaints Genitourinary: Genitourinary: Reports no additional female genitourinary complaints Musculoskeletal: Musculoskeletal: Reports no additional musculoskeletal complaints Integumentary/Breasts: Skin/Breast: Reports system reviewed and no additional complaints, except as docu Neurologic: Reports system reviewed and no additional complaints, except as documented Psychiatric: Psychiatric: Reports no additional psychiatric complaints Endocrine: Endocrine: Reports no additional endocrine complaints [facility] Past Medical History Medical History Alcohol abuse Cardiomegaly Connective tissue disease Gastroesophageal reflux disease Hypertension Interstitial lung disease Psoriasis Sjogren syndrome with lung
[2022-02-26] MEDS: FUROSEMIDE 20 MG TABLET PO ×2 (13:00→18:27)
[2022-02-26] MEDS: ONDANSETRON HCL ODT 4 MG TABLET PO (16:37)
[2022-02-26 17:18] LABS: Sodium 116 mmol/L (137-145)
--- NOTE | 2022-02-26 17:20 | PC.NURSE ---
Notified Dr. Newman of critical sodium of 116. New orders to pause NS infusion. Start infusion of 3% NS @ 100ml/hr for 3hrs, then recheck NA level after 3hrs and call Md with results. Resume NS @ 75ml/hr after the 3 hour infusion of 3% NS
[2022-02-26 17:35] LABS: Cortisol Random 2.92 ug/dL
[2022-02-26] MEDS: SODIUM CHLORIDE 3% 300 ML 100 ML IV CONT (18:30)
[2022-02-26] MEDS: FAMOTIDINE 20 MG TABLET PO (20:33)
[2022-02-26 21:53] LABS: Sodium 123 mmol/L (137-145)
[2022-02-26] MEDS: DEXTROSE 5% 1,000 ML 1,000 ML 300 ML IV CONT (22:30)
[2022-02-27] VITALS (16 sets, daily range): BP systolic 118–159; BP diastolic 84–90; PULSE 66–93; RESP 12–22; TEMP 35.3–36.7; O2SAT 97–100
[2022-02-27 01:57] LABS: Hematocrit 31.9 % (37.0-47.0); Hemoglobin 11.4 g/dL (12.0-15.0); Mean Corpuscular HGB Conc 35.7 g/dl (32-36); Mean Corpuscular Volume 89.6 fl (80-100); Mean Platelet Volume 8.9 fl (7.4-10.4); Platelet Count Result 229 k/mm3 (150-375); Red Blood Count 3.56 M/mm3 (4.2-5.4); Red Cell Distribution Width 12.7 % (11.5-14.5); White Blood Count 5.7 K/mm3 (4.5-10.0)
[2022-02-27 02:11] LABS: Anion Gap 10 mmol/L (8-16); Blood Urea Nitrogen 13 mg/dL (7-17); Calcium 8.6 mg/dL (8.4-10.2); Carbon Dioxide 21 mmol/L (22-30); Chloride 91 mmol/L (98-107); Estimated CRCL calculation 94 ml/min; Estimated Glomerular Filt Rate > 60; Glucose 122 mg/dL (65-110); Potassium 3.9 mmol/L (3.4-5.0); Sodium 122 mmol/L (137-145)
[2022-02-27 08:43] LABS: Albumin Level 3.9 g/dL (3.5-5.1); Anion Gap 7 mmol/L (8-16); Blood Urea Nitrogen 11 mg/dL (7-17); Calcium 8.5 mg/dL (8.4-10.2); Carbon Dioxide 23 mmol/L (22-30); Chloride 97 mmol/L (98-107); Estimated CRCL calculation 94 ml/min; Estimated Glomerular Filt Rate > 60; Glucose 109 mg/dL (65-110); Phosphorus 3.6 mg/dL (2.5-4.5); Sodium 127 mmol/L (137-145)
[2022-02-27] MEDS: FOLIC ACID 1 MG TABLET PO (08:49)
[2022-02-27] MEDS: ENOXAPARIN 40 MG/0.4 ML SYRINGE SUB-Q (08:49)
[2022-02-27] MEDS: MAGNESIUM OXIDE 400 MG TABLET PO (08:49)
[2022-02-27] MEDS: LOSARTAN POTASSIUM 100 MG TABLET PO (08:49)
[2022-02-27] MEDS: BENZONATATE 100 MG CAPSULE 200 MG PO (08:49)
[2022-02-27] MEDS: predniSONE 10 MG TABLET PO ×2 (08:49→17:10)
[2022-02-27] MEDS: THIAMINE HCL 100 MG TABLET PO (08:49)
[2022-02-27] MEDS: METOPROLOL SUCCINATE EXT REL 100 MG TABCR PO (08:49)
[2022-02-27] MEDS: FAMOTIDINE 20 MG TABLET PO ×2 (08:49→20:38)
[2022-02-27] MEDS: FUROSEMIDE 20 MG TABLET PO ×2 (08:49→17:09)
--- NOTE | 2022-02-27 09:00 | PC.NURSE ---
Spoke with Dr. Newman regarding new sodium level of 127. Received new orders for 2 mcg desmopressin IVP x1, then administer D5W @ 300ml/hr x 2 hours AFTER DESMOPRESSIN HAS BEEN ADMINISTERED. Once both medications have been administered recheck sodium level and call Dr. Newman with results. Also, notified Dr. Newman at this time that pt has lost IV access and this RN will try to obtain access collette, but there will be a delay in treatment d/t to this factor. Dr. Newman ok with this issue, but to administer medication as soon as IV access has been obtained.
[2022-02-27] MEDS: FLUTICASONE/SALMETEROL 115-21 MCG INHALER 1 PUFF 2 PUFF INHALATION ×2 (09:33→20:40)
[2022-02-27] MEDS: DESMOPRESSIN ACETATE 4 MCG/ML AMP 2 MCG IV PUSH (12:19)
[2022-02-27] MEDS: LIDOCAINE HCL 1% PF INJ 5 ML VIAL INFILTRATE (12:23)
[2022-02-27] MEDS: DEXTROSE 5% 1,000 ML 1,000 ML 300 ML IV CONT (12:23)
--- NOTE | 2022-02-27 13:51 | PM.IMPN ---
Progress Note: A&P Assessment and Plan (1) Hyponatremia: Code(s): E87.1 - Hypo-osmolality and hyponatremia Status: Acute Assessment and Plan: Presented to ED under direction of primary care provider after having outpatient labs reveal marked hyponatremia. Patient follows with Nephrology and reports outpatient labs last month revealed sodium of 129. Sodium 113 at presentation Appreciate nephrology consultation Continue with 1200 mL fluid restriction daily Received 3% sodium 02/26 with increase in sodium too rapidly Sodium increased to 127 today Desmopressin and D5W ordered per nephrology. This was delayed however due to loss of IV access. PICC line placed this afternoon Repeat sodium pending this afternoon Laboratory workup including cortisol and protein electrophoresis pending. TSH is within normal limits Patient admits to excess water intake Lasix 20 mg BID per nephrology Continue to monitor sodium levels closely (2) Hypertension: Qualifiers: Hypertension type: primary hypertension Qualified Code(s): I10 - Essential (primary) hypertension Code(s): I10 - Essential (primary) hypertension Status: Chronic Assessment and Plan: Blood pressure reviewed and has been reasonably controlled. Last BP 136/84 Continue home losartan and metoprolol Monitor BP trends (3) Petechial rash: Code(s): R23.3 - Spontaneous ecchymoses Status: Acute Assessment and Plan: Chronic intermittent petechial rash on bilateral anterior shins Patient is scheduled with Rheumatology this month (4) Depression: Qualifiers: Depression Type: unspecified Qualified Code(s): F32.A - Depression, unspecified Code(s): F32.A - Depression, unspecified Status: Acute Assessment and Plan: No acute issues Patient is not on any medications for this. Appears her SSRI was discontinued due to hyponatremia (5) Sjogren syndrome with lung involvement: Code(s): M35.02 - Sjogren syndrome with lung involvement Status: Acute Assessment and Plan: No acute issues at this time Continue with saliva substitute Rheumatology follow-up scheduled (6) EBENEZER (obstructive sleep apnea): Code(s): G47.33 - Obstructive sleep apnea (adult) (pediatric) Status: Acute Assessment and Plan: New diagnosis Patient reports she has not received her CPAP yet CPAP ordered during hospitalization Subjective Date/time seen: 02/27/22 13:51 Interval history: Date of service: 02/27/2022 Meri Vincent is a 51-year-old female with a history of alcohol abuse (quit in October 2021), Sjogren syndrome, this connective tissue disease, ILD, hypertension, psoriasis, and hyponatremia with recent admission related to this in October 2021 who is seen in follow-up again for hyponatremia. She is feeling well today. Her only complaint is that she is tired. She was not able to sleep very well last night. She denies nausea, vomiting, dizziness, lightheadedness, weakness, fever, or chills. No shortness of breath, cough, or chest pain. Her appetite is good. She is doing okay with the fluid restriction. She did become a bit tearful when I confirmed with her regarding her cessation of alcohol use. There was some conflicting information in the chart about when she quit drinking and she confirmed this was in October. She very much wanted to make sure this was noted correctly in the chart. She said it is difficult for her to talk about. Review of Systems Review of Systems: All systems reviewed & are unremarkable except as noted in HPI and below Exam Narrative: General: Well-nourished, well-appearing 51-year-old female, sitting up in bed, comfortable, NARD Neuro: awake, alert and oriented x4, speech clear, no focal neuro deficits noted HEENMT: normocephalic, atraumatic, EOMI, sclerae anicteric Respiratory: clear to auscultation bilaterally, nonlabored br
--- NOTE | 2022-02-27 14:36 | PM.PNNEP ---
Progress Note: A&P Additional Plan 1. Lily has chronic hyponatremia. She has SIADH , either idiopathic or possibly due to lung issues. All of the other issues that she had had before are not applicable anymore. In addition she drinks excessively and so overwhelmed her decreased ability to excrete free water.. 2. The patient has acute hyponatremia. she was on pantoprazole. This has been switched to famotidine. Her specific gravity was not very low, speaking against polydipsia. TSH was okay. Cortisol level is low. She is on prednisone now. will repeat the cortisol level when off the steroids. Her sodium started at 1 13 on the 2nd then 116 yesterday morning and that gradually increased to 122 at 1:00 a.m. but then suddenly was 127 at 7:00 a.m.. this is an over-correction. So I have ordered Desmopressin and 600cc of free water to be given. Repeat sodium will be checked after the free water is finished. Goal is to bring the sodium back down to 124 or lower. 3. Patient has Sjogren syndrome and also connective tissue disease with a new rash on her legs. She is going to see Rheumatology at [facility]. 4. The patient has sleep apnea and uses a CPAP machine. 5. The patient has alcohol abuse disorder. She has stopped drinking about a month ago. Subjective Date/time seen: 02/27/22 14:36 Interval history: Patient feels better today. No chest pain or shortness of breath Review of Systems Cardiovascular: Cardiovascular: Reports no additional cardiovascular complaints Respiratory: Respiratory: Reports no additional respiratory complaints Gastrointestinal: Gastrointestinal: Reports no additional gastrointestinal complaints Genitourinary: Genitourinary: Reports no additional female genitourinary complaints Exam Narrative: WDWN in NAD skin no rash head ncat lungs clear cor reg no rub abd BS+ nontender and soft ext no edema. Objective Data Vital Signs Vital Signs: Vital Signs - 24 hr 02/26/22 16:00 02/26/22 16:00 02/26/22 17:20 Temperature 36.2 C L Pulse Rate 79 74 Respiratory Rate 20 Blood Pressure 134/86 Pulse Oximetry 99 Oxygen Delivery Room Air 02/26/22 18:00 02/26/22 20:00 02/26/22 22:36 Temperature 36.7 C Pulse Rate 78 76 67 Respiratory Rate 20 Blood Pressure 139/92 H Pulse Oximetry 100 97 Oxygen Delivery Room Air 02/26/22 20:00 02/26/22 23:40 02/26/22 20:00 Temperature 36.5 C Pulse Rate 74 75 Respiratory Rate 20 Blood Pressure 128/89 Pulse Oximetry 97 Oxygen Delivery Room Air 02/26/22 22:00 02/27/22 00:00 02/27/22 00:00 Temperature Pulse Rate 64 80 Respiratory Rate Blood Pressure Pulse Oximetry Oxygen Delivery Room Air 02/27/22 02:00 02/27/22 04:00 02/27/22 04:00 Temperature Pulse Rate 79 80 Respiratory Rate Blood Pressure Pulse Oximetry Oxygen Delivery Room Air 02/27/22 04:00 02/27/22 06:00 02/27/22 08:17 Temperature 36.7 C 35.3 C L Pulse Rate 74 77 77 Respiratory Rate 20 22 H Blood Pressure 159/89 H 128/90 Pulse Oximetry 97 100 Oxygen Delivery 02/27/22 08:49 02/27/22 09:33 02/27/22 08:00 Temperature Pulse Rate 74 93 Respiratory Rate Blood Pressure Pulse Oximetry 98 Oxygen Delivery Room Air 02/27/22 08:00 02/27/22 10:00 02/27/22 12:00 Temperature Pulse Rate 80 69 Respiratory Rate Blood Pressure Pulse Oximetry Oxygen Delivery Room Air 02/27/22 12:00 02/27/22 12:41 Temperature 36.1 C L Pulse Rate 68 Respiratory Rate 18 Blood Pressure 136/84 Pulse Oximetry 100 Oxygen Delivery Room Air Intake/Output Intake/Output: Intake & Output 02/24/22 02/25/22 02/26/22 02/27/22 23:59 23:59 23:59 23:59 Intake Total 1649.1 960 Output Total 2300 1550 Balance -650.9 -590 Meds/Results Medications: Active Medications Generic Name Dose Route Start Last Admin Trade Name Freq PRN Reason Stop Do
[2022-02-27 14:54] LABS: Sodium 122 mmol/L (137-145)
--- NOTE | 2022-02-27 15:27 | PC.NURSE ---
Notified Dr. Newman of new sodium level of 122. New order to continue fluid restriction of 1200ml and to recheck sodium at [address] Newman with results
[2022-02-27 17:24] LABS: EDCOVIDSCREEN Positive (Negative)
[2022-02-27 18:21] LABS: SARS-CoV-2 RNA PCR Negative
[2022-02-27 20:52] LABS: Sodium 122 mmol/L (137-145)
[2022-02-27] MEDS: CENTRAL LINE FLUSH 10 ML IV PUSH (22:29)
[2022-02-27] MEDS: WATER FOR IRRIGATION, STERILE 1,000 ML BOTTLE 1000 ML (22:29)
[2022-02-28] VITALS (8 sets, daily range): BP systolic 118–155; BP diastolic 78–92; PULSE 64–79; RESP 12–18; TEMP 36–36.4; O2SAT 95–100
[2022-02-28] MEDS: BENZONATATE 100 MG CAPSULE 200 MG PO ×3 (00:43→20:46)
[2022-02-28 05:43] LABS: Hemoglobin 9.7 g/dL (12.0-15.0); Mean Corpuscular HGB Conc 34.6 g/dl (32-36); Mean Corpuscular Hemoglobin 31.9 pg (26-34); Mean Corpuscular Volume 92.1 fl (80-100); Mean Platelet Volume 8.4 fl (7.4-10.4); Platelet Count Result 169 k/mm3 (150-375); Red Blood Count 3.04 M/mm3 (4.2-5.4); Red Cell Distribution Width 12.7 % (11.5-14.5); White Blood Count 4.8 K/mm3 (4.5-10.0)
[2022-02-28 06:05] LABS: Albumin Level 3.4 g/dL (3.5-5.1); Anion Gap 6 mmol/L (8-16); Blood Urea Nitrogen 13 mg/dL (7-17); Carbon Dioxide 24 mmol/L (22-30); Chloride 91 mmol/L (98-107); Estimated CRCL calculation 111 ml/min; Estimated Glomerular Filt Rate > 60; Glucose 104 mg/dL (65-110); Phosphorus 3.9 mg/dL (2.5-4.5); Potassium 3.8 mmol/L (3.4-5.0); Sodium 121 mmol/L (137-145)
[2022-02-28] MEDS: CENTRAL LINE FLUSH 10 ML IV PUSH ×3 (06:29→20:45)
[2022-02-28] MEDS: FLUTICASONE/SALMETEROL 115-21 MCG INHALER 1 PUFF 2 PUFF INHALATION ×2 (09:04→20:36)
[2022-02-28] MEDS: predniSONE 10 MG TABLET PO ×2 (09:27→17:07)
[2022-02-28] MEDS: THIAMINE HCL 100 MG TABLET PO (09:27)
[2022-02-28] MEDS: LOSARTAN POTASSIUM 100 MG TABLET PO (09:27)
[2022-02-28] MEDS: FUROSEMIDE 20 MG TABLET PO ×2 (09:27→17:07)
[2022-02-28] MEDS: FAMOTIDINE 20 MG TABLET PO ×2 (09:27→20:45)
[2022-02-28] MEDS: MAGNESIUM OXIDE 400 MG TABLET PO (09:27)
[2022-02-28] MEDS: METOPROLOL SUCCINATE EXT REL 100 MG TABCR PO (09:27)
[2022-02-28] MEDS: FOLIC ACID 1 MG TABLET PO (09:28)
[2022-02-28] MEDS: ENOXAPARIN 40 MG/0.4 ML SYRINGE SUB-Q (09:28)
--- NOTE | 2022-02-28 11:34 | PC.NURSE ---
This patient, Meri Vincent, was transferred to [ 249] on 02/28/22 at 1134. Personal belongings sent with patient. Report given to [DANNY hankins @ 7500]. Appropriate documentation sent with patient.
--- NOTE | 2022-02-28 11:51 | PC.NURSE ---
Patient transfer received from IMU. Patient oriented to the room.
--- NOTE | 2022-02-28 12:08 | PM.PNNEP ---
Progress Note: A&P Additional Plan 1. Lily has chronic hyponatremia. She has SIADH , either idiopathic or possibly due to lung issues. All of the other issues that she had had before are not applicable anymore. In addition she drinks excessively and so overwhelmed her decreased ability to excrete free water.. Her baseline sodium seems to be around 129-130. 2. The patient has acute hyponatremia. she was on pantoprazole. This has been switched to famotidine. Her specific gravity was not very low, speaking against polydipsia. TSH was okay. Cortisol level is low. She is on prednisone now. will repeat the cortisol level when off the steroids. The sodium on admission on February 25 was 113. In the morning February 26 the sodium was 116. Then suddenly yesterday morning the sodium went up to 127. This was an over-correction. She received D5W and DDAVP and came down to 122 which is goal. He has been at that level since then. Several conversations with nursing yesterday concerning her sodium levels and orders addressing same after my last note. The DDAVP can sometimes last a while. She is within 8 of her baseline sodium. Will check another sodium today at 1:00 p.m.. He has not started correcting on her own again I will give her 3% saline to get her up to her baseline. Continue fluid restriction. 3. Patient has Sjogren syndrome and also connective tissue disease with a new rash on her legs. She is going to see Rheumatology at [facility]. 4. The patient has sleep apnea and uses a CPAP machine. 5. The patient has alcohol abuse disorder. She has stopped drinking about a month ago. Subjective Date/time seen: 02/28/22 12:08 Interval history: Patient feels better today. No chest pain or shortness of breath Eager for discharge. Exam Narrative: WDWN in NAD skin no rash or subQ nodules head ncat lungs clear cor reg no rub or gallop abd BS+ nontender and soft ext no edema. Objective Data Vital Signs Vital Signs: Vital Signs - 24 hr 02/27/22 12:41 02/27/22 14:00 02/27/22 16:30 Temperature 36.1 C L 35.9 C L Pulse Rate 68 73 73 Respiratory Rate 18 20 Blood Pressure 136/84 118/85 Pulse Oximetry 100 99 Oxygen Delivery 02/27/22 19:44 02/27/22 20:45 02/27/22 20:00 Temperature 36.2 C L Pulse Rate 66 Respiratory Rate 18 Blood Pressure 145/86 H Pulse Oximetry 99 97 Oxygen Delivery Room Air Room Air 02/27/22 22:36 02/28/22 00:45 02/28/22 02:07 Temperature 36.0 C L Pulse Rate 74 64 79 Respiratory Rate 12 18 16 Blood Pressure 155/92 H Pulse Oximetry 98 100 95 Oxygen Delivery Autopap Autopap 02/28/22 08:00 02/28/22 09:27 02/28/22 08:00 Temperature 36.4 C Pulse Rate 64 64 Respiratory Rate 12 Blood Pressure 142/83 H Pulse Oximetry 100 Oxygen Delivery Room Air Intake/Output Intake/Output: Intake & Output 02/25/22 02/26/22 02/27/22 02/28/22 23:59 23:59 23:59 23:59 Intake Total 1649.1 2040 800 Output Total 2300 2450 1250 Balance -650.9 -410 -450 Meds/Results Medications: Active Medications Generic Name Dose Route Start Last Admin Trade Name Freq PRN Reason Stop Dose Admin Acetaminophen 650 mg 02/25/22 17:13 02/26/22 02:22 Acetaminophen 325 Mg Tablet PO 650 mg Q4H PRN Administration Mild Pain (1-3) or Fever Albuterol 1 puff 02/25/22 21:36 Albuterol Sulfate (*Sp) Aerosol 1 Puff INHALATION Q4-6H PRN shortness of breath or wheezing Benzonatate 200 mg 02/25/22 21:36 02/28/22 09:28 Benzonatate 100 Mg Capsule PO 200 mg TID PRN Administration Cough Enoxaparin Sodium 40 mg 02/26/22 09:00 02/28/22 09:28 Enoxaparin 40 Mg/0.4 Ml Syringe SUB-Q 40 mg DAILY ZULMA Administration Famotidine 20 mg 02/26/22 21:00 02/28/22 09:27 Famotidine 20 Mg Tablet PO 20 mg Q12HR ZULMA Administration Folic Acid 1 mg 02/26/22 09:00 02/28/22 09:28 Folic Acid 1 Mg Tablet PO
[2022-02-28] MEDS: CENTRAL LINE FLUSH 20 ML IV PUSH (13:29)
[2022-02-28 13:46] LABS: Sodium 123 mmol/L (137-145)
[2022-02-28] MEDS: SODIUM CHLORIDE 3% 300 ML 100 ML IV CONT (15:10)
--- NOTE | 2022-02-28 15:55 | P.PNIM_ITS ---
Progress Note: A&P Assessment and Plan (1) Hyponatremia: Code(s): E87.1 - Hypo-osmolality and hyponatremia Status: Acute Assessment and Plan: Presented to ED under direction of primary care provider after having outpatient labs reveal marked hyponatremia. Patient follows with Nephrology and reports outpatient labs last month revealed sodium of 129. * Sodium 113 at presentation * Appreciate nephrology consultation * Continue with 1200 mL fluid restriction daily * Received 3% sodium 02/26 with increase in sodium too rapidly therefore yesterday received desmopressin and D5W to bring sodium down. It is now st able around 122 * 3% saline ordered per Nephrology. Recheck sodium 1 hour following this with results to Dr. Newman * Appreciate nephrology consultation * Sodium increased to 127 today * Laboratory workup including protein electrophoresis pending. TSH is within normal limits * Lasix 20 mg BID per nephrology * Continue to monitor sodium levels closely (2) Hypertension: Qualifiers: Hypertension type: primary hypertension Qualified Code(s): I10 - Essential (primary) hypertension Code(s): I10 - Essential (primary) hypertension Status: Chronic Assessment and Plan: Blood pressure reviewed and has been controlled. Last BP 118/72 * Continue home losartan and metoprolol * Monitor BP trends (3) Petechial rash: Code(s): R23.3 - Spontaneous ecchymoses Status: Acute Assessment and Plan: Chronic intermittent petechial rash on bilateral anterior shins * Patient is scheduled with Rheumatology this month (4) Depression: Qualifiers: Depression Type: unspecified Qualified Code(s): F32.A - Depression, unspecified Code(s): F32.A - Depression, unspecified Status: Acute Assessment and Plan: No acute issues * Patient is not on any medications for this. * Appears her SSRI was discontinued due to hyponatremia (5) Sjogren syndrome with lung involvement: Code(s): M35.02 - Sjogren syndrome with lung involvement Status: Acute Assessment and Plan: No acute issues at this time * Continue with saliva substitute * Rheumatology follow-up scheduled (6) EBENEZER (obstructive sleep apnea): Code(s): G47.33 - Obstructive sleep apnea (adult) (pediatric) Status: Acute Assessment and Plan: New diagnosis * Patient reports she has not received her CPAP yet * CPAP ordered during hospitalization (7) Bronchitis: Code(s): J40 - Bronchitis, not specified as acute or chronic Status: Acute Assessment and Plan: patient diagnosed with bronchitis per primary care provider on 02/24 * continue prednisone for total of 5 days. Will be completed tomorrow * patient was symptomatic improvement * supportive care as needed Subjective Date/time seen: 02/28/22 15:55 Interval history: Date of service: 02/28/2022 Meri Vincent is a 51-year-old female with a history of alcohol abuse (quit in October 2021), Sjogren syndrome, this connective tissue disease, ILD, hypertension, psoriasis, and hyponatremia with recent admission related to this in October 2021 who is seen in follow-up again for hyponatremia. she is feeling well today. She has no complaints. Her appetite is good. She does feel very thirsty due to her fluid restriction and states she really wants a diet Coke. she denies dizziness, lightheadedness, weakness. No shortness of breath, cough, chest pain, palpitations. denies pru
--- NOTE | 2022-02-28 15:55 | PM.IMPN ---
Progress Note: A&P Assessment and Plan (1) Hyponatremia: Code(s): E87.1 - Hypo-osmolality and hyponatremia Status: Acute Assessment and Plan: Presented to ED under direction of primary care provider after having outpatient labs reveal marked hyponatremia. Patient follows with Nephrology and reports outpatient labs last month revealed sodium of 129. Sodium 113 at presentation Appreciate nephrology consultation Continue with 1200 mL fluid restriction daily Received 3% sodium 02/26 with increase in sodium too rapidly therefore yesterday received desmopressin and D5W to bring sodium down. It is now stable around 122 3% saline ordered per Nephrology. Recheck sodium 1 hour following this with results to Dr. Newman Appreciate nephrology consultation Sodium increased to 127 today Laboratory workup including protein electrophoresis pending. TSH is within normal limits Lasix 20 mg BID per nephrology Continue to monitor sodium levels closely (2) Hypertension: Qualifiers: Hypertension type: primary hypertension Qualified Code(s): I10 - Essential (primary) hypertension Code(s): I10 - Essential (primary) hypertension Status: Chronic Assessment and Plan: Blood pressure reviewed and has been controlled. Last BP 118/72 Continue home losartan and metoprolol Monitor BP trends (3) Petechial rash: Code(s): R23.3 - Spontaneous ecchymoses Status: Acute Assessment and Plan: Chronic intermittent petechial rash on bilateral anterior shins Patient is scheduled with Rheumatology this month (4) Depression: Qualifiers: Depression Type: unspecified Qualified Code(s): F32.A - Depression, unspecified Code(s): F32.A - Depression, unspecified Status: Acute Assessment and Plan: No acute issues Patient is not on any medications for this. Appears her SSRI was discontinued due to hyponatremia (5) Sjogren syndrome with lung involvement: Code(s): M35.02 - Sjogren syndrome with lung involvement Status: Acute Assessment and Plan: No acute issues at this time Continue with saliva substitute Rheumatology follow-up scheduled (6) EBENEZER (obstructive sleep apnea): Code(s): G47.33 - Obstructive sleep apnea (adult) (pediatric) Status: Acute Assessment and Plan: New diagnosis Patient reports she has not received her CPAP yet CPAP ordered during hospitalization (7) Bronchitis: Code(s): J40 - Bronchitis, not specified as acute or chronic Status: Acute Assessment and Plan: patient diagnosed with bronchitis per primary care provider on 02/24 continue prednisone for total of 5 days. Will be completed tomorrow patient was symptomatic improvement supportive care as needed Subjective Date/time seen: 02/28/22 15:55 Interval history: Date of service: 02/28/2022 Meri Vincent is a 51-year-old female with a history of alcohol abuse (quit in October 2021), Sjogren syndrome, this connective tissue disease, ILD, hypertension, psoriasis, and hyponatremia with recent admission related to this in October 2021 who is seen in follow-up again for hyponatremia. she is feeling well today. She has no complaints. Her appetite is good. She does feel very thirsty due to her fluid restriction and states she really wants a diet Coke. she denies dizziness, lightheadedness, weakness. No shortness of breath, cough, chest pain, palpitations. denies pruritus Review of Systems Review of Systems: All systems reviewed & are unremarkable except as noted in HPI and below Exam Narrative: General: Well-nourished, well-appearing 51-year-old female, sitting up in bed, comfortable, NARD Neuro: awake, alert and oriented x4, speech clear, no focal neuro deficits noted HEENMT: normocephalic, atraumatic, EOMI, sclerae anicteric , wearing glasses Respiratory: clear to auscultation bilater
[2022-02-28 20:17] LABS: Sodium 128 mmol/L (137-145)
[2022-02-28] MEDS: DEXTROSE 5% 1,000 ML 1,000 ML 100 ML IV CONT (20:44)
[2022-03-01 00:29] LABS: Sodium 126 mmol/L (137-145)
--- NOTE | 2022-03-01 00:56 | PC.NURSE ---
PT 1999 SODIUM WAS 128. SPOKE WITH [address] FERNANDO AND HE ORDERED D5W @100ML/HR TO START ON PT THEN RECHECK AT 0000 AND CALL IF LEVEL WAS GREATER THAN OR EQUAL TO 129 OR LESS THAN OR EQUAL TO 125. PT 0000 SODIUM LEVEL WAS 126.
[2022-03-01 03:52] VITALS: BP 168/96; PULSE 64; RESP 16; O2SAT 100
[2022-03-01 03:58] VITALS: TEMP 36.4
[2022-03-01] MEDS: CENTRAL LINE FLUSH 10 ML IV PUSH (05:01)
[2022-03-01 05:12] LABS: Hematocrit 27.5 % (37.0-47.0); Hemoglobin 9.7 g/dL (12.0-15.0); Mean Corpuscular HGB Conc 35.3 g/dl (32-36); Mean Corpuscular Hemoglobin 32.3 pg (26-34); Mean Corpuscular Volume 91.7 fl (80-100); Platelet Count Result 190 k/mm3 (150-375); Red Cell Distribution Width 12.7 % (11.5-14.5); White Blood Count 4.5 K/mm3 (4.5-10.0)
[2022-03-01 05:22] LABS: Anion Gap 7 mmol/L (8-16); Blood Urea Nitrogen 10 mg/dL (7-17); Calcium 8.6 mg/dL (8.4-10.2); Carbon Dioxide 25 mmol/L (22-30); Chloride 95 mmol/L (98-107); Estimated CRCL calculation 110 ml/min; Estimated Glomerular Filt Rate > 60; Glucose 120 mg/dL (65-110); Potassium 3.7 mmol/L (3.4-5.0); Sodium 127 mmol/L (137-145)
[2022-03-01] MEDS: FLUTICASONE/SALMETEROL 115-21 MCG INHALER 1 PUFF 2 PUFF INHALATION (08:29)
--- NOTE | 2022-03-01 09:29 | PM.PNNEP ---
Progress Note: A&P Additional Plan 1. Lily has chronic hyponatremia. She has SIADH , either idiopathic or possibly due to lung issues. All of the other issues that she had had before are not applicable anymore. In addition she drinks excessively and so overwhelmed her decreased ability to excrete free water.. Her baseline sodium seems to be around 129-130. 2. The patient has acute hyponatremia. she was on pantoprazole. This has been switched to famotidine. Her specific gravity was not very low, speaking against polydipsia. TSH was okay. Cortisol level is low. She is on prednisone now. will repeat the cortisol level when off the steroids. Sodium was trending toward to rapid correction yesterday so I gave a little D5W and slowed it down. Her sodium today is 27 which is her baseline. Discharge any time is okay from the renal standpoint. 3. Patient has Sjogren syndrome and also connective tissue disease with a new rash on her legs. She is going to see Rheumatology at [facility]. 4. The patient has sleep apnea and uses a CPAP machine. 5. The patient has alcohol abuse disorder. She has stopped drinking about a month ago. Subjective Date/time seen: 03/01/22 09:29 Interval history: Patient feels better today. Feeling okay. Exam Narrative: WDWN in NAD skin no rash or subQ nodules head ncat lungs clear bilaterally cor reg no rub or gallop abd BS+ nontender and soft ext no edema. No cyanosis Objective Data Vital Signs Vital Signs: Vital Signs - 24 hr 02/28/22 13:36 02/28/22 19:28 02/28/22 20:38 Temperature 36.3 C L 36.3 C L Pulse Rate 77 64 Respiratory Rate 16 16 Blood Pressure 118/78 144/83 H Pulse Oximetry 98 97 98 Oxygen Delivery Room Air 02/28/22 20:00 03/01/22 03:52 03/01/22 03:58 Temperature 36.4 C Pulse Rate 64 Respiratory Rate 16 Blood Pressure 168/96 H Pulse Oximetry 100 Oxygen Delivery Room Air 02/28/22 22:35 Temperature Pulse Rate Respiratory Rate Blood Pressure Pulse Oximetry 98 Oxygen Delivery Room Air Intake/Output Intake/Output: Intake & Output 02/26/22 02/27/22 02/28/22 03/01/22 23:59 23:59 23:59 23:59 Intake Total 1649.1 2040 1460 240 Output Total 2300 2450 1950 900 [facility] -650.9 -410 -490 -660 Meds/Results Medications: Active Medications Generic Name Dose Route Start Last Admin Trade Name Freq PRN Reason Stop Dose Admin Acetaminophen 650 mg 02/25/22 17:13 02/26/22 02:22 Acetaminophen 325 Mg Tablet PO 650 mg Q4H PRN Administration Mild Pain (1-3) or Fever Albuterol 1 puff 02/25/22 21:36 Albuterol Sulfate (*Sp) Aerosol 1 Puff INHALATION Q4-6H PRN shortness of breath or wheezing Benzonatate 200 mg 02/25/22 21:36 02/28/22 20:46 Benzonatate 100 Mg Capsule PO 200 mg TID PRN Administration Cough Enoxaparin Sodium 40 mg 02/26/22 09:00 02/28/22 09:28 Enoxaparin 40 Mg/0.4 Ml Syringe SUB-Q 40 mg DAILY ZULMA Administration Famotidine 20 mg 02/26/22 21:00 02/28/22 20:45 Famotidine 20 Mg Tablet PO 20 mg Q12HR ZULMA Administration Folic Acid 1 mg 02/26/22 09:00 02/28/22 09:28 Folic Acid 1 Mg Tablet PO 1 mg DAILY ZULMA Administration Furosemide 20 mg 02/26/22 11:25 02/28/22 17:07 Furosemide 20 Mg Tablet PO 20 mg BID ZULMA Administration Losartan Potassium 100 mg 02/26/22 09:00 02/28/22 09:27 Losartan Potassium 100 Mg Tablet PO 100 mg DAILY ZULMA Administration Magnesium Oxide 400 mg 02/26/22 09:00 02/28/22 09:27 Magnesium Oxide 400 Mg Tablet PO 400 mg DAILY ZULMA Administration Metoprolol Succinate 100 mg 02/26/22 09:00 02/28/22 09:27 Metoprolol Succinate Ext Rel 100 Mg Tabcr PO 100 mg DAILY ZULMA Administration Ondansetron HCl 4 mg 02/26/22 16:28 02/26/22 16:37 Ondansetron Hcl Odt 4 Mg Tablet PO 4 mg Q6H PRN Administration Nausea Prednisone 10 mg 02/26/22 08:00 02/28/22 1
[2022-03-01 09:42] VITALS: PULSE 82
[2022-03-01] MEDS: FOLIC ACID 1 MG TABLET PO (09:42)
[2022-03-01] MEDS: METOPROLOL SUCCINATE EXT REL 100 MG TABCR PO (09:42)
[2022-03-01] MEDS: THIAMINE HCL 100 MG TABLET PO (09:42)
[2022-03-01] MEDS: FAMOTIDINE 20 MG TABLET PO (09:42)
[2022-03-01] MEDS: predniSONE 10 MG TABLET PO (09:43)
[2022-03-01] MEDS: MAGNESIUM OXIDE 400 MG TABLET PO (09:43)
[2022-03-01] MEDS: FUROSEMIDE 20 MG TABLET PO (09:43)
[2022-03-01] MEDS: LOSARTAN POTASSIUM 100 MG TABLET PO (09:44)
[2022-03-01 11:24] LABS: Kappa\\Lambda Light Chains 1.35 (0.26-1.65); Lambda Light Chain 22.7 mg/L (5.7-26.3)
[2022-03-01 11:41] LABS: Osmolality, Urine 335 mOsm/kg (50-1200)
--- NOTE | 2022-03-01 12:58 | P.DS_ITS ---
DS: Admitting Diagnosis Discharge Date 03/01/22 Admitting Diagnosis Hyponatremia DS: Discharge Diagnosis Discharge Diagnosis (1) Hyponatremia: Code(s): E87.1 - Hypo-osmolality and hyponatremia Status: Acute Assessment and Plan: Acute on chronic. Presented to ED under direction of primary care provider after having outpatient labs reveal marked hyponatremia. * Patient follows with Nephrology. * Sodium 113 at presentation * She was seen in consultation by nephrology to manage this. * Chronic hyponatremia secondary to SIADH, acutely worsened by excess fluid intake * Fluid restriction was implemented and will be continued on discharge * Received 3% sodium 02/26 with increase in sodium too rapidly therefore on 02/27 received desmopressin and D5W to bring sodium down. On 02/28 3% saline was repeated. Sodium levels remained stable near her baseline. * Laboratory workup including protein electrophoresis pending. TSH is within normal limits. Cortisol slightly low, however patient was on steroids and this will be repeated outpatient * Lasix 20 mg BID per nephrology * Pantoprazole discontinued, changed to famotidine * Follow-up with nephrology in 1 week for repeat sodium (2) Hypertension: Qualifiers: Hypertension type: primary hypertension Qualified Code(s): I10 - Essential (primary) hypertension Code(s): I10 - Essential (primary) hypertension Status: Chronic Assessment and Plan: Blood pressure reviewed and was controlled. * Continue home losartan and metoprolol (3) Petechial rash: Code(s): R23.3 - Spontaneous ecchymoses Status: Acute Assessment and Plan: Chronic intermittent petechial rash on bilateral anterior shins * Patient is scheduled for Rheumatology evaluation next week (4) Depression: Qualifiers: Depression Type: unspecified Qualified Code(s): F32.A - Depression, unspecified Code(s): F32.A - Depression, unspecified Status: Acute Assessment and Plan: No acute issues * Not on any medications for this. * Appears her SSRI was discontinued due to hyponatremia (5) Sjogren syndrome with lung involvement: Code(s): M35.02 - Sjogren syndrome with lung involvement Status: Acute Assessment and Plan: No acute issues at this time * Continue with saliva substitute * Rheumatology follow-up scheduled (6) EBENEZER (obstructive sleep apnea): Code(s): G47.33 - Obstructive sleep apnea (adult) (pediatric) Status: Acute Assessment and Plan: New diagnosis * Patient reports she has not received her CPAP yet * CPAP provided during hospitalization (7) Bronchitis: Code(s): J40 - Bronchitis, not specified as acute or chronic Status: Acute Assessment and Plan: Patient diagnosed with bronchitis per primary care provider on 02/24 * Prescribed 10 mg p.o. b.i.d. prednisone x5 days. Last dose on 03/01/2022 * patient had symptomatic improvement DS: Summary Hospital Course Hospital Course: Date of admission: 02/25/2022 Date of discharge: 03/01/2022 Meri Vincent is a 51-year-old female with a history of alcohol abuse (quit in October 2021), Sjogren syndrome, this connective tissue disease, ILD, hypertension, psoriasis, and hyponatremia who presented to the emergency department on 02/25/2022 per instructions from her primary care provider after outpatient labs revealed a sodium of 105. Patient had been feeling slightly confused and had nausea. On presentati
--- NOTE | 2022-03-01 12:58 | PM.DS ---
DS: Admitting Diagnosis Discharge Date 03/01/22 Admitting Diagnosis Hyponatremia DS: Discharge Diagnosis Discharge Diagnosis (1) Hyponatremia: Code(s): E87.1 - Hypo-osmolality and hyponatremia Status: Acute Assessment and Plan: Acute on chronic. Presented to ED under direction of primary care provider after having outpatient labs reveal marked hyponatremia. Patient follows with Nephrology. Sodium 113 at presentation She was seen in consultation by nephrology to manage this. Chronic hyponatremia secondary to SIADH, acutely worsened by excess fluid intake Fluid restriction was implemented and will be continued on discharge Received 3% sodium 02/26 with increase in sodium too rapidly therefore on 02/27 received desmopressin and D5W to bring sodium down. On 02/28 3% saline was repeated. Sodium levels remained stable near her baseline. Laboratory workup including protein electrophoresis pending. TSH is within normal limits. Cortisol slightly low, however patient was on steroids and this will be repeated outpatient Lasix 20 mg BID per nephrology Pantoprazole discontinued, changed to famotidine Follow-up with nephrology in 1 week for repeat sodium (2) Hypertension: Qualifiers: Hypertension type: primary hypertension Qualified Code(s): I10 - Essential (primary) hypertension Code(s): I10 - Essential (primary) hypertension Status: Chronic Assessment and Plan: Blood pressure reviewed and was controlled. Continue home losartan and metoprolol (3) Petechial rash: Code(s): R23.3 - Spontaneous ecchymoses Status: Acute Assessment and Plan: Chronic intermittent petechial rash on bilateral anterior shins Patient is scheduled for Rheumatology evaluation next week (4) Depression: Qualifiers: Depression Type: unspecified Qualified Code(s): F32.A - Depression, unspecified Code(s): F32.A - Depression, unspecified Status: Acute Assessment and Plan: No acute issues Not on any medications for this. Appears her SSRI was discontinued due to hyponatremia (5) Sjogren syndrome with lung involvement: Code(s): M35.02 - Sjogren syndrome with lung involvement Status: Acute Assessment and Plan: No acute issues at this time Continue with saliva substitute Rheumatology follow-up scheduled (6) EBENEZER (obstructive sleep apnea): Code(s): G47.33 - Obstructive sleep apnea (adult) (pediatric) Status: Acute Assessment and Plan: New diagnosis Patient reports she has not received her CPAP yet CPAP provided during hospitalization (7) Bronchitis: Code(s): J40 - Bronchitis, not specified as acute or chronic Status: Acute Assessment and Plan: Patient diagnosed with bronchitis per primary care provider on 02/24 Prescribed 10 mg p.o. b.i.d. prednisone x5 days. Last dose on 03/01/2022 patient had symptomatic improvement DS: Summary Hospital Course Hospital Course: Date of admission: 02/25/2022 Date of discharge: 03/01/2022 Meri Vincent is a 51-year-old female with a history of alcohol abuse (quit in October 2021), Sjogren syndrome, this connective tissue disease, ILD, hypertension, psoriasis, and hyponatremia who presented to the emergency department on 02/25/2022 per instructions from her primary care provider after outpatient labs revealed a sodium of 105. Patient had been feeling slightly confused and had nausea. On presentation to the ED, vital signs were stable, she was afebrile, sodium 113, additional laboratory workup unremarkable. She was admitted to the hospitalist service for further evaluation management and was seen in consultation by Nephrology who managed her hyponatremia. Sodium returned to baseline and she will continue with nephrology follow up. She did have a PICC line placed on 02/27/22 due to difficult intravenous access which was removed on day of discharge
[2022-03-01 15:21] VITALS: BP 150/90; PULSE 67; RESP 18; TEMP 36.4; O2SAT 100
[2022-03-03 07:27] LABS: Albumin 3.8 g/dL (3.8-4.8); Alpha 1 Globulin 0.3 g/dL (0.2-0.3); Alpha 2 Globulin 0.6 g/dL (0.5-0.9); Beta 1 Globulin 0.5 g/dL (0.4-0.6); Gamma Globulin 2.1 g/dL (0.8-1.7); Protein, Total 7.7 g/dL (6.1-8.1)
[2022-03-04 05:11] LABS: Total Protein/Creatinine Ratio 159 mg/g creat (21-161)
== END 2022-03-01 15:43 | disposition home or self-care (01) | DRG 644 ==
LOC: ANHED 16:55 → ANHIMU 18:46 → ANH2MED 02-28 11:33
PROVIDERS: Internal Medicine Nephrology; Nurse Practitioner; Physician Assistant; Admitting Provider Chiropractor; Emergency Provider Family Medicine; PCP Internal Medicine; Visit Provider Student in an Organized Health Care Education/Training Program
DX: E22.2 Syndrome of inappropriate secretion of antidiuretic hormone (principal); J84.9 Interstitial pulmonary disease, unspecified; M35.02 Sjogren syndrome with lung involvement; J40 Bronchitis, not specified as acute or chronic; I10 Essential (primary) hypertension; G47.33 Obstructive sleep apnea (adult) (pediatric); M35.9 Systemic involvement of connective tissue, unspecified; R23.3 Spontaneous ecchymoses; F10.10 Alcohol abuse, uncomplicated; F32.A Depression, unspecified; K21.9 Gastro-esophageal reflux disease without esophagitis; L40.9 Psoriasis, unspecified; I51.7 Cardiomegaly; Z20.822 Contact with and (suspected) exposure to COVID-19; Z79.899 Other long term (current) drug therapy
CPT/HCPCS: 36415; 36569; 71045; 80048; 80053; 80069; 80307; 81001; 81050; 82533; 82570; 83735; 83883; 83930; 83935; 84155; 84156; 84165; 84166; 84295; 84300; 84443; 85025; 85027; 87426; 94640; 94660; 99285; A9270; C1751; C9803; J1650; J2597; J7030; J7070; J7131; J7512; U0003; U0005

== ENCOUNTER 2022-03-10 08:17 | Outpatient (CLI) | payer BC, SELFPAY ==
--- NOTE | 2022-03-10 13:28 | WPDSIXMINUTE ---
Six Minute Walk Procedure Procedure Performed Pulmonary Stress Test (6 min walk) Six Minute Walk Six Minute Walk: This 6 minutes walk test was carried out with the patient breathing ambient air. The pre walk oxyhemoglobin saturation was 99%. The patient walked over 335 m with no stops during testing. During the walk the oxyhemoglobin saturation remained 94% or higher. The perceived dyspnea on the Rita scale was 3 at baseline and remained unchanged at the end of the testing. Impression: No evidence of oxyhemoglobin desaturation on this testing.
== END 2022-03-10 08:18 | disposition home or self-care (01) ==
PROVIDERS: PCP Internal Medicine; Visit Provider Nurse Practitioner Family
DX: J84.9 Interstitial pulmonary disease, unspecified (principal)
CPT/HCPCS: 94618

== ENCOUNTER 2022-05-30 09:30 | Outpatient (RCR) | payer BC, SELFPAY | END 2022-06-27 16:03 | disposition home or self-care (01) | LOC: ANHCPREHAB 09:30 | PROVIDERS: PCP Internal Medicine; Visit Provider Internal Medicine Critical Care Medicine | DX: J84.9 Interstitial pulmonary disease, unspecified (principal) | CPT/HCPCS: 94625; G0239 ==

== ENCOUNTER 2022-07-31 08:59 | Outpatient (CLI) | payer BC, SELFPAY ==
--- NOTE | ~2022-07-31 | MM_ITS ---
EXAMINATION: MM screening neno BI w jeff HISTORY: Screening mammogram TECHNIQUE: Craniocaudal and mediolateral oblique 3-D tomosynthesis images were obtained and synthetic 2-D images were generated. CAD analysis was submitted and interpreted. COMPARISON: No prior mammogram is available for comparison at this institution. BREAST PARENCHYMAL COMPOSITION: The breasts are heterogeneously dense, which may obscure small masses . FINDINGS: RIGHT BREAST: No suspicious mass, calcification, or architectural distortion are identified to sugges t malignancy. LEFT BREAST: There are indeterminate calcifications in the anterior third of the breast. A focal asym metry is present in the middle/posterior third of the inner breast. IMPRESSION: 1. Left breast findings as described above which may represent the patient's baseline however no comp arison is currently available. 2. Comparison with prior mammograms is necessary. BI-RADS Category 0: Incomplete: Needs comparison with prior mammograms. Reviewed, dictated and finalized at location A. CT HAMMER OPERATOR IMPRESSION: 1. Left breast findings as described above which may represent the patient's ba seline however no comparison is currently available. 2. Comparison with prior mammograms is necessary. BI-RADS Category 0: Incomplete: Needs comparison with prior mammograms.
== END 2022-07-31 09:00 | disposition home or self-care (01) ==
PROVIDERS: PCP Internal Medicine; Visit Provider Nurse Practitioner
DX: Z12.31 Encounter for screening mammogram for malignant neoplasm of breast (principal); R92.8 Other abnormal and inconclusive findings on diagnostic imaging of breast
CPT/HCPCS: 77063; 77067

== ENCOUNTER 2022-09-03 11:05 | Outpatient (CLI) | payer BC, SELFPAY ==
--- NOTE | ~2022-09-03 | MMUS_ITS ---
EXAMINATION: MM diagnostic neno LT w jeff, US breast LT limited HISTORY: Indeterminate microcalcifications in the anterior third of the breast and focal mammographic asymmetry in the middle/posterior third of inner left breast TECHNIQUE: Additional 3-D tomosynthesis images of the left breast were performed and synthetic 2-D im ages were generated. Magnification views of the left breast. Rolled medial and lateral craniocaudal v iews of left breast. CAD analysis was submitted and interpreted. High resolution upper inner and lowe r inner quadrant left breast ultrasound was performed. COMPARISON: 07/31/2022 bilateral screening mammogram FINDINGS: MAMMOGRAPHIC FINDINGS: Benign microcalcifications are noted on the left; no malignant features are noted. No reproducible mass is detected. ULTRASOUND: No suspicious mass or shadowing or other significant sonographic abnormality is detected in the media l half of the left breast. IMPRESSION: 1. Benign findings 2. Routine mammographic screening is recommended BI-RADS Category 2: Benign finding(s). Reviewed, dictated and finalized at location A. UCTION CONTROL EXPEDITER IMPRESSION: 1. Benign findings 2. Routine mammographic screening is recommended BI-RADS Category 2: Benign finding(s).
== END 2022-09-03 11:06 | disposition home or self-care (01) ==
LOC: ANHIMG 11:07
PROVIDERS: PCP Internal Medicine; Visit Provider Nurse Practitioner
DX: N64.89 Other specified disorders of breast (principal)
CPT/HCPCS: 76642; 77061; 77065; G0279

== ENCOUNTER 2022-11-25 01:27 | Day surgery (SDC) | payer BC, SELFPAY ==
[2022-11-12 13:50] VITALS: BMI 44.2
[2022-11-12 14:16] VITALS: BMI 44.2
[2022-11-25 08:28] VITALS: BP 142/89; PULSE 105; RESP 20; TEMP 35.9; O2SAT 97
[2022-11-25] MEDS: LACTATED RINGERS 1,000 ML 150 ML IV CONT (08:47)
--- NOTE | 2022-11-25 09:08 | PM.HPGS ---
History of Present Illness History of Present Illness Consent: Risks, benefits, and alternatives have been discussed and questions answered. Patient agrees to proceed with procedure. Chief complaint: neoplasm screening Narrative: Meri Vincent is a 52 year old female Presents for screening colonoscopy. Patient's current weight appetite and bowel movements are normal. Patient denies abdominal pain. She has had no bleeding. Family history is noncontributory. Review of Systems Review of Systems: Review of systems noncontributory. [facility] Past Medical History Medical History Alcohol abuse Cardiomegaly Connective tissue disease Gastroesophageal reflux disease Hypertension Interstitial lung disease Psoriasis Rheumatoid arthritis Sjogren syndrome with lung involvement Sjogren's syndrome Suspected sleep apnea Surgical History Surgical History History of appendectomy [place] teeth extracted Family History Family History Father , 2017 Acute myocardial infarction Hypertension Aortic dissection Mother Fibromyalgia Hypothyroidism Other Cervical cancer Social History Social History Social History: Surrogate decision maker: Nader Jacobo, .no biologic children but has a stepchild. She stated that she quit drinking since her last admission in October Code status: Full code. Smoking status: Never smoker Second hand tobacco smoke exposure: No Alcohol intake: former Alcohol use details: Longstanding history of alcohol abuse though she has been sober for upwards of 9 to 10 years. Reports drinking approximately 12 White Claws a day at this time. Substance use: never Substance use type: does not use Lack of Transportation: No Lack of Food: Never True Current Housing: I Have Housing Concerned About Future Housing: No Difficulty Paying Gas/Electric Bills: No Difficulty Paying for Meds: No Education: Master's Degree or Higher Difficulty w/ Childcare or Family Care: No Living arrangements: with family Additional living arrangements comments: The patient lives with her in [place]. Recently moved here from [place]. 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ns: No Meds Home Medications and Allergies Home Medications Medication Instructions Recorded Confirmed Type furosemide 20 mg tablet 20 mg PO BID #60 tabs 03/01/22 11/12/22 Rx pantoprazole 40 mg tablet,delayed 40 mg PO BID #60 tabs 09/10/22 11/12/22 Rx release losartan 100 mg tablet 100 mg PO DAILY #90 tabs 10/10/22 11/12/22 Rx metoprolol succinate 100 mg 100 mg PO DAILY #90 tabs 10/10/22 11/25/22 Rx tablet,extended release 24 hr duloxetine 20 mg capsule,delayed 20 mg PO BID 10/15/22 11/12/22 History release (Cymbalta) estradiol 1 mg tablet 1 mg PO DAILY #30 tabs 10/23/22 11/12/22 Rx progesterone micronized 100 mg 100 mg PO DAILY #30 caps 10/23/22 11/12/22 Rx capsule (Prometrium) ondansetron HCl 4 mg tablet 4 mg PO DAILY PRN nausea and 10/28/22 11/12/22 Rx vomiting #20 tabs sodium,potassium,mag sulfates 17.5 See Rx Instructions PO .COMPLEX 10/28/22 11/12/22 Rx gram-3.13 gram-1.6 gram oral soln #354 mL (Suprep Bowel Prep Kit) semaglutide (weight loss) 1 mg/0.5 1 mg (0.5 mL) subcut WEEKLY #2 mL 11/24/22 Rx mL subcutaneous pen injector Allergies Allergy/AdvReac Type Severity Reaction Status Date / Time prochlorperazine Allergy Intermediate facial Verified 11/25/22 08:26 [From Compazine] swelling Vital Signs Vital Signs - 24 hr 11/25/22 08:28 Temperature 96.7 F L Pulse Rate 105 H Respiratory Rate 20 Blood Pressure 142/89 H Pulse Oximetry 97 Oxygen Delivery Room Air Exam Narrative: P
--- NOTE | 2022-11-25 09:18 | WPDANESEPPF ---
Anes - Initial Pre Proc Eval Procedure: Operation Date: 11/25/22 09:30 Proposed Procedures p Screening Colonoscopy - Dante Khanna MD Date/Time: 11/25/22 09:18 Surgeon: Dante Khanna MD Pre Op Diagnosis: neoplasm screening Patient Data Age: 52 Gender: F Height: 1.57 m Weight: 111.8 kg Last Vital Signs Temp 96.7 F L 11/25/22 08:28 Pulse 105 H 11/25/22 08:28 Resp 20 11/25/22 08:28 BP 142/89 H 11/25/22 08:28 Pulse Ox 97 11/25/22 08:28 O2 Del Method Room Air 11/25/22 08:28 Allergies Allergy/AdvReac Type Severity Reaction Status Date / Time prochlorperazine Allergy Intermediate facial Verified 11/25/22 08:26 [From Compazine] swelling Home Medications Medication Instructions Recorded Confirmed Type furosemide 20 mg tablet 20 mg PO BID #60 tabs 03/01/22 11/12/22 Rx pantoprazole 40 mg tablet,delayed 40 mg PO BID #60 tabs 09/10/22 11/12/22 Rx release losartan 100 mg tablet 100 mg PO DAILY #90 tabs 10/10/22 11/12/22 Rx metoprolol succinate 100 mg 100 mg PO DAILY #90 tabs 10/10/22 11/25/22 Rx tablet,extended release 24 hr duloxetine 20 mg capsule,delayed 20 mg PO BID 10/15/22 11/12/22 History release (Cymbalta) estradiol 1 mg tablet 1 mg PO DAILY #30 tabs 10/23/22 11/12/22 Rx progesterone micronized 100 mg 100 mg PO DAILY #30 caps 10/23/22 11/12/22 Rx capsule (Prometrium) ondansetron HCl 4 mg tablet 4 mg PO DAILY PRN nausea and 10/28/22 11/12/22 Rx vomiting #20 tabs sodium,potassium,mag sulfates 17.5 See Rx Instructions PO .COMPLEX 10/28/22 11/12/22 Rx gram-3.13 gram-1.6 gram oral soln #354 mL (Suprep Bowel Prep Kit) semaglutide (weight loss) 1 mg/0.5 1 mg (0.5 mL) subcut WEEKLY #2 mL 11/24/22 Rx mL subcutaneous pen injector Patient hx anesthesia problems: none Family hx anesthesia problems: none Results Review: All pre-operative results and documents have been reviewed as part of the pre-operative evaluation. [facility] Past Medical History Medical History Alcohol abuse Cardiomegaly Connective tissue disease Gastroesophageal reflux disease Hypertension Interstitial lung disease Psoriasis Rheumatoid arthritis Sjogren syndrome with lung involvement Sjogren's syndrome Suspected sleep apnea Surgical History Surgical History History of appendectomy Friend teeth extracted Family History Family History Father , [place] 2018 Acute myocardial infarction Hypertension Aortic dissection Mother Fibromyalgia Hypothyroidism Other Cervical cancer Social History Social History Social History: Surrogate decision maker: Nader Jacobo, .no biologic children but has a stepchild. She stated that she quit drinking since her last admission in October Code status: Full code. Smoking status: Never smoker Second hand tobacco smoke exposure: No Alcohol intake: former Alcohol use details: Longstanding history of alcohol abuse though she has been sober for upwards of 9 to 10 years. Reports drinking approximately 12 White Claws a day at this time. Substance use: never Substance use type: does not use Lack of Transportation: No Lack of Food: Never True Current Housing: I Have Housing Concerned About Future Housing: No Difficulty Paying Gas/Electric Bills: No Difficulty Paying for Meds: No Education: Master's Degree or Higher Difficulty w/ Childcare or Family Care: No Living arrangements: with family Additional living arrangements comments: The patient lives with her in [place]. Recently moved here from [place]. 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
[2022-11-25 09:42] VITALS: BP 102/67; PULSE 95; RESP 20; O2SAT 97
[2022-11-25 09:52] VITALS: BP 105/66; PULSE 89; RESP 16; O2SAT 98
[2022-11-25 10:02] VITALS: BP 112/71; PULSE 84; RESP 26; O2SAT 98
== END 2022-11-25 10:12 | disposition home or self-care (01) ==
PROVIDERS: PCP Internal Medicine; Visit Provider Internal Medicine Gastroenterology
PROC: 0DJD8ZZ Inspection of Lower Intestinal Tract, Via Natural or Artificial Opening Endoscopic (ICD-10-PCS; CPT 45378; principal; 2022-11-25 09:30)
DX: Z12.11 Encounter for screening for malignant neoplasm of colon (principal); K64.8 Other hemorrhoids; I10 Essential (primary) hypertension; M06.9 Rheumatoid arthritis, unspecified; M35.02 Sjogren syndrome with lung involvement; K21.9 Gastro-esophageal reflux disease without esophagitis; J84.9 Interstitial pulmonary disease, unspecified; L40.9 Psoriasis, unspecified; Z79.899 Other long term (current) drug therapy; E66.01 Morbid (severe) obesity due to excess calories; Z68.42 Body mass index [BMI] 45.0-49.9, adult
CPT/HCPCS: 45378; J2704; J7120

== ENCOUNTER 2023-04-10 10:28 | Outpatient (CLI) | payer BC, SELFPAY ==
--- NOTE | 2023-04-10 | ECHO_ITS ---
Patient Info Name: Meri Vincent Age: 52 years : 1970 Gender: Female Ht: 62 in Wt: 223 lbs BSA: 2.16 m2 HR: 64 bpm BP: 133 / 98 mmHg Technical Quality: Fair Exam Date: 04/10/2023 11:02 AM Exam Location: [facility] Pulmonary Patient Status: Outpatient Admit Date: 04/10/2023 Staff Ordering Physician: ARTURO MONGE MD First Aid Nurse: Kiana Moyer RDCS Attending Provider: ARTURO MONGE MD Referring Physician: MARIPOSA NORWOOD; Exam Type: CA echo doppler color flow Study Info Indications R06.02 - Shortness of breath Complete two-dimensional, color flow and Doppler transthoracic echocardiogram is performed. Summary 1. Complete two-dimensional, color flow and Doppler transthoracic echocardiogram is performed. 2. Left ventricular chamber dimension is normal. 3. Left ventricular systolic function is normal, estimated at 60-65%. 4. The left ventricular diastolic function is abnormal. 5. E/e' 10 is mildly elevated. 6. Global longitudinal strain is mildly abnormal at -16.6%. 7. No pulmonary hypertension, estimated pulmonary arterial systolic pressure is 30 mmHg. Left Ventricle E/e' 10 is mildly elevated. Global longitudinal strain is mildly abnormal at -16.6%. Left ventricular chamber dimension is normal. Left ventricular systolic function is normal, estimated at 60-65%. The left ventricular diastolic function is abnormal. Right Ventricle Right ventricular systolic function is normal and with normal TAPSE 2.3 cm. Right ventricular chamber dimension is normal. Left Atria Left atrial chamber dimension is normal. Right Atria Right atrial chamber dimension is normal. Aortic Valve The aortic valve is trileaflet. There is no aortic valve stenosis. There is no aortic valve regurgitation. Pulmonic Valve There is no pulmonic regurgitation. Mitral Valve There is no mitral valve stenosis. There is no mitral valve regurgitation. Tricuspid Valve There is no tricuspid valve regurgitation. No pulmonary hypertension, estimated pulmonary arterial systolic pressure is 30 mmHg. Pericardium/Pleural There is no pericardial effusion. Inferior Vena Cava Normal inferior vena cava with >50% collapse upon inspiration consistent with normal right atrial pressure, 5 mmHg. Aorta The aortic root size at the sinus of Valsalva is normal. Left Ventricular Outflow Tract Name Value Normal LVOT 2D LVOT Diameter 2.0 cm LVOT Doppler LVOT Peak Gradient 4 mmHg LVOT Mean Gradient 2 mmHg LVOT VTI 23 cm LVOT VTI/AV VTI Ratio 1.0 LVOT Stroke Volume 69 ml LVOT CO 4.0 l/min LVOT CI 1.8 l/min/m2 Pulmonic Valve Name Value Normal RVOT Doppler RVOT Peak Gradient 1 mmHg PV Doppler
== END 2023-04-10 10:29 | disposition home or self-care (01) ==
LOC: ANHCARD 10:29
PROVIDERS: PCP Internal Medicine
DX: R06.02 Shortness of breath (principal); J84.9 Interstitial pulmonary disease, unspecified; R93.1 Abnormal findings on diagnostic imaging of heart and coronary circulation
CPT/HCPCS: 93306

== ENCOUNTER 2023-05-06 12:52 | Outpatient (CLI) | payer BC, SELFPAY | END 2023-05-06 12:53 | disposition home or self-care (01) | LOC: ANHAUDIO 12:53 | PROVIDERS: PCP Internal Medicine; Visit Provider Nurse Practitioner | DX: H90.3 Sensorineural hearing loss, bilateral (principal) | CPT/HCPCS: 92557; 92567 ==

== ENCOUNTER 2023-06-02 08:00 | Outpatient (RCR) | payer BC, SELFPAY ==
--- NOTE | 2023-03-19 10:44 | PTOPEVAL1 ---
Assessment and note entered by Tad Maxwell, PT Evaluation Information Assessment Status Evaluation Diagnosis Cervicalgia Onset 30 years ago, radiating symptoms started about a year ago. Subjective Information The patient is coming in for neck pain with radiating numbness and tingling, pain, and weakness going down both arms down to the fingers. Patient has had a recent MRI and her dialysis social worker recommend physical therapy with possible need for an orthopedic consult. Patient is currently only taking Advil for the pain and reports dropping objects in her hands and having increased pain with sleeping and doing laundry getting clothes out of the washer and dryer. Reported Pain Level Pain Score 5: Self Report Additional Pain Score Comments Reports the pain going down her arms as stinging. Assessment PT Clinical Summary Meri is a 52 year old female coming into the clinic with a diagnosis of cervicalgia with radiating symptoms going down both arms down to the fingers. Patient has rounded shoulders and forward head to go with tight upper traps, decreased cervical range of motion, and weakness in her scapular stabilizers. Physical therapy will working addressing those deficits and if we can loosen up her upper traps may try mechanical or manual therapy. Modalities, and manual therapy as needed for pain control. Plan of Care Interventions Electrical Stimulation,Gait Training,Hot Pack/Cold Pack,Manual Therapy,Mechanical Traction,Neuro Re- education,Patient/Caregiver Education,Therapeutic Activities,Therapeutic Exercise,Ultrasound Other Interventions cupping, taping, IASTM PT Services Indicated Yes Treatment Frequency and 1-2x/wk for 8 visits Duration These treatments will address the objective and functional deficits as defined above. The patient will be advanced safely and appropriately in order for the patient to progress towards his/her prior level of function. Additional exercises will be introduced and as well as a comprehensive home exercise program upon discharge, if needed, ?to ensure carryover of functional gains achieved in the clinic. This treatment plan has been reviewed and agreement upon by the patient.
--- NOTE | 2023-03-19 10:45 | OPREHPOC ---
Outpatient Therapy Plan of Care This is a Multidisciplinary Plan of Care that may contain components documented by all disciplines (PT, OT, and ST.) PT Problem 1 PT Problem #1 Knowledge Deficit PT Goal 1 Goal Independent with HEP Target Visit 8 PT Problem 2 PT Problem #2 Pain PT Goal 1 Goal decrease pain in the neck to no more than 3/10 Target Visit 8 PT Goal 2 Goal decrease radiating symptoms to above the elbows. Target Visit 8 PT Problem 3 PT Problem #3 Impaired Range of Motion PT Goal 1 Goal increase cervical rotation to 65 degrees Target Visit 8 PT Problem 4 PT Problem #4 Impaired Strength PT Goal 1 Goal Increase lower traps to 4+/5 Target Visit 8
--- NOTE | 2023-04-16 10:33 | OPREHPOC ---
Outpatient Therapy Plan of Care This is a Multidisciplinary Plan of Care that may contain components documented by all disciplines (PT, OT, and ST.) PT Problem 1 PT Problem #1 Knowledge Deficit PT Goal 1 Goal Independent with HEP Target Visit 8 Progress Partially Met Comment Updated with RTC strengthening PT Problem 2 PT Problem #2 Pain PT Goal 1 Goal decrease pain in the neck to no more than 3/10 Target Visit 8 Progress Partially Met Comment Improved but not met PT Goal 2 Goal decrease radiating symptoms to above the elbows. Target Visit 8 Progress Met Comment Pain now localized PT Problem 3 PT Problem #3 Impaired Range of Motion PT Goal 1 Goal increase cervical rotation to 65 degrees Target Visit 8 Progress Partially Met Comment Improved bilaterally but not met PT Problem 4 PT Problem #4 Impaired Strength PT Goal 1 Goal Increase lower traps to 4+/5 for postural control and improvement with lifting activity Target Visit 8 Progress Partially Met Comment Improved and progressing
--- NOTE | 2023-04-16 10:33 | PTOPPROG ---
Assessment and note entered by Tereso Kelley, PT Evaluation Information Assessment Status Progress Diagnosis Cervicalgia, shoulder weakness Onset 30 years ago, radiating symptoms started about a year ago. Subjective Information Reports that since starting therapy she is seeing improvement. Still feels stiff and has pain but feels that the therapy is continuing to help. Would like to continue as she feels she is making overall progress consistently. Assessment PT Clinical Summary Patient has seen improvement in cervical ROM, though slight it has been positive and significant . Still showing indications of difficulty with R sided closing and weakness in the R UE which may be combination of radicular symptoms and rotator cuff weakness. Plan of Care Interventions Electrical Stimulation,Gait Training,Hot Pack/Cold Pack,Manual Therapy,Mechanical Traction,Neuro Re- education,Patient/Caregiver Education,Therapeutic Activities,Therapeutic Exercise,Ultrasound Other Interventions Dry Needling PT Services Indicated Yes Treatment Frequency and 2x/week for 4 weeks Duration These treatments will address the objective and functional deficits as defined above. The patient will be advanced safely and appropriately in order for the patient to progress towards his/her prior level of function. Additional exercises will be introduced and as well as a comprehensive home exercise program upon discharge, if needed, ?to ensure carryover of functional gains achieved in the clinic. This treatment plan has been reviewed and agreement upon by the patient.
--- NOTE | 2023-04-23 09:17 | PCPTNOTE ---
Patient called & cancelled scheduled appointment this date due to being out of town.
--- NOTE | 2023-05-12 08:38 | PCPTNOTE ---
Patient called to cancel appointment 05/12/23 due to illness.
--- NOTE | 2023-05-14 11:54 | OPREHPOC ---
Outpatient Therapy Plan of Care This is a Multidisciplinary Plan of Care that may contain components documented by all disciplines (PT, OT, and ST.) PT Problem 1 PT Problem #1 Knowledge Deficit PT Goal 1 Goal Independent with HEP Target Visit 8 Progress Partially Met Comment RTC strengthening reinforced PT Problem 2 PT Problem #2 Pain PT Goal 1 Goal decrease pain in the neck to no more than 3/10 Target Visit 8 Progress Partially Met Comment Improved but not met PT Goal 2 Goal decrease radiating symptoms to above the elbows. Target Visit 8 Progress Met Comment Pain now localized PT Problem 3 PT Problem #3 Impaired Range of Motion PT Goal 1 Goal increase cervical rotation to 65 degrees Target Visit 8 Progress Partially Met Comment Improved bilaterally but not met PT Problem 4 PT Problem #4 Impaired Strength PT Goal 1 Goal Increase lower traps to 4+/5 for postural control and improvement with lifting activity Target Visit 8 Progress Partially Met Comment Improved and progressing
--- NOTE | 2023-05-14 11:54 | PTOPPROG ---
Assessment and note entered by Tereso Kelley, PT Evaluation Information Assessment Status Progress Diagnosis Cervicalgia, shoulder weakness Onset 30 years ago, radiating symptoms started about a year ago. Subjective Information Reports that she has seen a lot of pain relief and quality of life improvement with therapy and dry needling. Still feels very weak in her shoulder girdle and would like to continue therapy to ensure progress is made in this area for snf improvement. Sleeping and active reach without pain have improved considerably but still limited . Assessment PT Clinical Summary Patient has seen slow but consistent improvement. Her pain has consistently decreased but she is showing objective strength deficits in R shoulder girdle. Will continue to show benefit from skilled therapy to address these deficits. Plan of Care Interventions Electrical Stimulation,Gait Training,Hot Pack/Cold Pack,Manual Therapy,Mechanical Traction,Neuro Re- education,Patient/Caregiver Education,Therapeutic Activities,Therapeutic Exercise,Ultrasound Other Interventions Dry Needling PT Services Indicated Yes Treatment Frequency and 1x/week for 4 weeks Duration These treatments will address the objective and functional deficits as defined above. The patient will be advanced safely and appropriately in order for the patient to progress towards his/her prior level of function. Additional exercises will be introduced and as well as a comprehensive home exercise program upon discharge, if needed, ?to ensure carryover of functional gains achieved in the clinic. This treatment plan has been reviewed and agreement upon by the patient.
--- NOTE | 2023-06-04 08:58 | PCPTNOTE ---
Addendum to 05/25/23 subjective information: Pt. reports no new concerns overall and says that her pain is still there but has been doing a little better with the dry needling.
--- NOTE | 2023-06-11 13:11 | PCPTNOTE ---
Patient cancelled secondary to car trouble.
== END 2023-06-15 08:41 | disposition home or self-care (01) ==
LOC: ANHPT 08:00
PROVIDERS: PCP Internal Medicine; Visit Provider Nurse Practitioner
DX: M54.2 Cervicalgia (principal)
CPT/HCPCS: 97012; 97014; 97110; 97112; 97140; 97161; 97530; G0283

== ENCOUNTER 2023-07-30 13:30 | Outpatient (RCR) | payer BC, SELFPAY ==
--- NOTE | 2023-06-29 08:38 | PCPTNOTE ---
Patient treatment carrying forward from #[id number]
--- NOTE | 2023-07-06 10:11 | PTOPPROG ---
Assessment and note entered by Tereso Kelley, PT Evaluation Information Assessment Status Progress Diagnosis Cervicalgia, shoulder weakness Onset 30 years ago, radiating symptoms started about a year ago. Subjective Information Reports that therapy has helped a lot with cervical tightness. States that she is still getting occasional pains all the way to her hand on the right side. Overall feel she is still headed in the right direction but progress has been slow and exercise has at times increased some pain. Assessment PT Clinical Summary Patient has seen progress in cervical ROM with some minor loss noted on L side rotation. She continues to demonstrate disproportional weakness in L shoulder girdle which is likely affecting chronic instability and protecting/compensation of left upper trapezius. Will continue to benefit form skilled therapy continuing to emphasize cervical and shoulder mobility with shoulder girdle stability integrated as focus. Plan of Care Interventions Therapeutic Exercise,Ultrasound,Patient/Caregiver Education,Manual Therapy,Neuro Re-education, Therapeutic Activities,Hot Pack/Cold Pack, Mechanical Traction,Electrical Stimulation,Gait Training Other Interventions Dry Needling PT Services Indicated Yes Treatment Frequency and 1x/week for 4 weeks Duration These treatments will address the objective and functional deficits as defined above. The patient will be advanced safely and appropriately in order for the patient to progress towards his/her prior level of function. Additional exercises will be introduced and as well as a comprehensive home exercise program upon discharge, if needed, ?to ensure carryover of functional gains achieved in the clinic. This treatment plan has been reviewed and agreement upon by the patient.
--- NOTE | 2023-07-06 10:12 | OPREHPOC ---
Outpatient Therapy Plan of Care This is a Multidisciplinary Plan of Care that may contain components documented by all disciplines (PT, OT, and ST.) PT Problem 1 PT Problem #1 Knowledge Deficit PT Goal 1 Goal Independent with HEP Target Visit 8 Progress Partially Met Comment RTC strengthening reinforced PT Problem 2 PT Problem #2 Pain PT Goal 1 Goal decrease pain in the neck to no more than 3/10 Target Visit 8 Progress Partially Met Comment Improved but not met PT Goal 2 Goal decrease radiating symptoms to above the elbows. Target Visit 8 Progress Met Comment Pain mostly localized. Continues to see occasional radiation to R hand. PT Problem 3 PT Problem #3 Impaired Range of Motion PT Goal 1 Goal increase cervical rotation to 65 degrees Target Visit 8 Progress Partially Met Comment Improved bilaterally but not met PT Problem 4 PT Problem #4 Impaired Strength PT Goal 1 Goal Increase lower traps to 4+/5 for postural control and improvement with lifting activity Target Visit 8 Progress Partially Met Comment Improved and progressing
--- NOTE | 2023-07-28 11:27 | PCPTNOTE ---
Patient no show for today's appointment
--- NOTE | 2023-07-30 14:36 | PTOPDC ---
Assessment and note entered by Tereso Kelley, PT Evaluation Information Assessment Status Progress Diagnosis Cervicalgia, shoulder weakness Onset 30 years ago, radiating symptoms started about a year ago. Subjective Information Reports that overall there is still having some issues with neck pain and radiating pain down Right arm. She has noted some increased pain in her middle traps and thoracic spine. Would like to continue HEP with possible traction if available. Reported Pain Level Pain Score 3: Self Report Assessment PT Clinical Summary Patient compliance has been limited since last evaluation. Continues to show some shoulder weakness and pain related to structural cervical deficits. We discussed continuation of HEP and implementation of home traction unit to replicate the improvement she had with manual traction. Plan of Care PT Services Indicated D/C to HEP
== END 2023-09-21 09:20 | disposition home or self-care (01) ==
LOC: ANHPT 13:30
PROVIDERS: PCP Internal Medicine; Visit Provider Nurse Practitioner
DX: M54.2 Cervicalgia (principal)
CPT/HCPCS: 97014; 97110; 97140; 97530; 99199; G0283

== ENCOUNTER 2023-08-07 16:13 | Emergency (ER) | payer BC, SELFPAY ==
[2023-08-07 16:45] VITALS: BP 116/79; PULSE 74; RESP 18; TEMP 36.4; O2SAT 100
[2023-08-07 17:48] LABS: Basophils Percent Auto 0.8 % (0.2-1.2); Eosinophils Absolute Auto 0.1 K/mm3 (0-0.3); Eosinophils Percent Auto 3.2 % (0-4.4); Hematocrit 37.8 % (37.0-47.0); Hemoglobin 12.5 g/dL (12.0-15.0); Immature Granulocyte Absolute 0.03 K/mm3 (0.00-0.031); Immature Granulocyte Percent A 0.8 % (0-0.5); Lymphocytes Absolute Auto 0.54 K/mm3 (0.9-3.2); Lymphocytes Percent Auto 14.3 % (18.3-44.2); Mean Corpuscular HGB Conc 33.1 g/dl (32-36); Mean Corpuscular Volume 96.7 fl (80-100); Mean Platelet Volume 9.3 fl (7.4-10.4); Monocytes Absolute Auto 0.5 K/mm3 (0.1-0.6); Monocytes Percent Auto 13.8 % (2.6-8.5); Neutrophils Absolute Auto 2.5 K/mm3 (1.3-6.7); Neutrophils Percent Auto 67.1 % (45.5-73.1); Platelet Count Result 271 k/mm3 (150-375); Red Blood Count 3.91 M/mm3 (4.2-5.4); Red Cell Distribution Width 12.5 % (11.5-14.5); White Blood Count 3.8 K/mm3 (4.5-10.0)
[2023-08-07 17:59] LABS: Alanine Aminotransferase 18 U/L (6-35); Albumin Level 4.4 g/dL (3.5-5.1); Alkaline Phosphatase 45 U/L (38-126); Anion Gap 10 mmol/L (8-16); Aspartate Amino Transferase 21 U/L (14-36); Bilirubin,Total 0.6 mg/dL (0.2-1.3); Blood Urea Nitrogen 8 mg/dL (7-17); Calcium 9.3 mg/dL (8.4-10.2); Carbon Dioxide 24 mmol/L (22-30); Chloride 96 mmol/L (98-107); Estimated CRCL calculation 84 ml/min; Estimated Glomerular Filt Rate > 60; Glucose 84 mg/dL (65-110); Lipase 186 U/L (23-300); Potassium 3.6 mmol/L (3.4-5.0); Sodium 130 mmol/L (137-145)
--- NOTE | 2023-08-07 20:02 | ED.GENADULT ---
HPI - General Adult General Chief complaint: Recheck/Abnormal Lab/Rx Stated complaint: abnl labs - sodium 123, COVID+ Time Seen by Provider: 08/07/23 19:26 Source: patient Mode of arrival: ambulatory Limitations: no limitations History of Present Illness HPI narrative: This is a 52-year-old female with PMH of Sjogren's, RA, chronic hyponatremia who presents to the ED after being referred by her PCP for low sodium lab today. Reports that her sodium was marked at 1:26 a.m. she was told to come to the ED. She has positive COVID test on Thursday PCP office. She has been having vomiting and a lot of diarrhea. Denies any GI bleeding symptoms. Denies abdominal pain, chest pain, cough, shortness of breath, fevers, chills. Related Data Home Medications Medication Instructions Recorded Confirmed duloxetine 20 mg capsule,delayed 20 mg PO BID 10/15/22 05/08/23 release (Cymbalta) Allergies Allergy/AdvReac Type Severity Reaction Status Date / Time prochlorperazine Allergy Intermediate facial Verified 05/08/23 13:48 [From Compazine] swelling Review of Systems Review of Systems: All systems as dictated in [facility] Past Medical History Medical History (Updated 08/08/23 @ 00:00 by Background Daemon) Acute anxiety Alcohol abuse Cardiomegaly Connective tissue disease Gastroesophageal reflux disease Hypertension Interstitial lung disease Psoriasis Rheumatoid arthritis Sjogren syndrome with lung involvement Sjogren's syndrome Suspected sleep apnea Surgical History Surgical History History of appendectomy [place] teeth extracted Family History Family History Father , 2017 Acute myocardial infarction Hypertension Aortic dissection Mother Fibromyalgia Hypothyroidism Other Cervical cancer Social History Social History Social History: Surrogate decision maker: Nader Jacobo, .no biologic children but has a stepchild. She stated that she quit drinking since her last admission in October Code status: Full code. Smoking status: Never smoker Second hand tobacco smoke exposure: No Alcohol intake: former Alcohol use details: Longstanding history of alcohol abuse though she has been sober for upwards of 9 to 10 years. Reports drinking approximately 12 White Claws a day at this time. Substance use: never Substance use type: does not use Lack of Transportation: No Lack of Food: Never True Current Housing: I Have Housing Concerned About Future Housing: No Difficulty Paying Gas/Electric Bills: No Difficulty Paying for Meds: No Education: Master's Degree or Higher Difficulty w/ Childcare or Family Care: No Living arrangements: with family Additional living arrangements comments: The patient lives with her in [place]. Recently moved here from [place]. 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 HEAD: Normocephalic, atraumatic. EYES: PERRLA and EOMI. ENT: Nares clear, no rhinorrhea or epistaxis. Mucous membranes moist. Oropharynx without tonsillar hypertrophy exudate or other lesions. NECK: Supple. No adenopathy or masses. CHEST: No respiratory distress. Clear to auscultation. No wheezes rales or rhonchi HEART: Regular rate and rhythm. No murmur heard. Normal peripheral pulses. ABDOMEN: Soft, nontender, nondistended, normal active bowel sounds. MSK: Normal range of motion. No edema. SKIN: Warm, dry, no rash. NEURO: Alert and oriented x3. No focal deficits. PSYCH: Normal mood and affect. Course Vital Signs Vital signs: Vital Signs Temperature 97.6 F 08/07/23 16:45 Pulse Rate 74 08/07/23 16:45 Respiratory Rate 18 08/07/23 1
[2023-08-07 20:12] LABS: Appearance Urine Clear (Clear); Bilirubin Urine Negative (Negative); Blood Urine Negative (Negative); Color Urine Yellow (Yellow); Glucose Urine UA Negative (Negative); Ketones Urine Negative (Negative); Leukocyte Esterase Ur Negative LEU/UL (Negative); Nitrate Urine Negative (Negative); Protein Urine Negative (Negative); Specific Grav Ur 1.009 (1.001-1.035); Urobilinogen Urine 0.2 mg/dL (<2.0); pH Urine 6.5 (5.0-9.0)
[2023-08-07 20:31] LABS: Add Urine Microscopic? NO
[2023-08-07 21:02] LABS: Influenza A QL RT-PCR Negative (Negative); Influenza B QL RT-PCR Negative (Negative); RSV RNA, RT-PCR Negative (Negative); SARS-CoV-2 RNA PCR Negative (Negative)
[2023-08-07 21:28] VITALS: BP 105/82; PULSE 87; RESP 15; O2SAT 100
[2023-08-07] MEDS: MECLIZINE HCL 25 MG TABLET PO (21:28)
--- NOTE | 2023-08-07 21:41 | PC.NURSE ---
This Rn went to pts room to update pt on plan of care and start IV fluids. pt requested to go home. Provider made aware.
== END 2023-08-07 21:48 | disposition home or self-care (01) ==
PROVIDERS: Emergency Medicine; Emergency Provider Physician Assistant; PCP Internal Medicine
DX: E87.6 Hypokalemia (principal); M06.9 Rheumatoid arthritis, unspecified; M35.02 Sjogren syndrome with lung involvement; I10 Essential (primary) hypertension; J84.9 Interstitial pulmonary disease, unspecified; L40.9 Psoriasis, unspecified; K21.9 Gastro-esophageal reflux disease without esophagitis; Z86.16 Personal history of COVID-19; Z87.891 Personal history of nicotine dependence
CPT/HCPCS: 36415; 80053; 81003; 83690; 85025; 87637; 99283; A9270

== ENCOUNTER 2023-09-17 09:01 | Outpatient (CLI) | payer BC, SELFPAY ==
--- NOTE | ~2023-09-17 | MM_ITS ---
EXAMINATION: MM screening [facility] BI w jeff HISTORY: Screening TECHNIQUE: Craniocaudal and mediolateral oblique 3-D tomosynthesis images were obtained and synthetic 2-D images were generated. CAD analysis was submitted and interpreted. COMPARISON: Comparison to multiple prior studies sequentially, with oldest reviewed study dated 11/2022. BREAST PARENCHYMAL COMPOSITION: The breasts are heterogeneously dense, which may obscure small masses . FINDINGS: There is a developing cluster of calcifications in the upper outer quadrant of the right br east. The left breast is stable without evidence for malignancy. IMPRESSION: 1. Developing cluster of nonspecific right breast calcifications. 2. Magnification views are recommended. BI-RADS Category 0: Incomplete: Needs additional imaging evaluation. Reviewed, dictated and finalized at location A. NT GRINDING MILL OPERATOR
== END 2023-09-17 09:02 | disposition home or self-care (01) ==
PROVIDERS: PCP Internal Medicine; Visit Provider Obstetrics & Gynecology
DX: Z12.31 Encounter for screening mammogram for malignant neoplasm of breast (principal); R92.8 Other abnormal and inconclusive findings on diagnostic imaging of breast
CPT/HCPCS: 77063; 77067

== ENCOUNTER → 2023-09-18 11:36 | Outpatient (CLI) | payer BC, SELFPAY ==
--- NOTE | ~2023-09-18 | XR_ITS ---
Cervical Spine: AP, lateral, open-mouth views Clinical History: Pain Findings: There is mild reversal normal cervical lordosis. There is minimal grade 1 anterolisthesis o f C3 over C4. There is 3 mm retrolisthesis of C6 over C7. There is moderate to advanced degenerative disc narrowing at C5-C6 and C6-C7. There is mild facet arthropathy in the cervical spine. Pre-vertebr al soft tissues are unremarkable. Impression: Degenerative spondylosis, as above. Minimal grade 1 anterolisthesis of C3 over C4. 3 mm retrolisthesis of C6 over C7. Reviewed, dictated and finalized at location . E RECEIVING CLERK Impression: Degenerative spondylosis, as above. Minimal grade 1 anterolisthesis of C3 over C4. 3 mm retrolisthesis of C6 over C7.
--- NOTE | ~2023-09-18 | XR_ITS ---
Right Shoulder Technique: AP and scapular Y views were obtained. Clinical History: Pain Findings: No fracture or dislocation is seen. Osseous alignment is anatomic. The glenohumeral and acr omioclavicular joint spaces are preserved. Soft tissues are unremarkable. Impression: Unremarkable right shoulder radiographs. Reviewed, dictated and finalized at [facility]. NE BUILDER Impression: Unremarkable right shoulder radiographs.
== END ==
PROVIDERS: PCP Nurse Practitioner; Visit Provider Nurse Practitioner
DX: M54.2 Cervicalgia (principal); M25.511 Pain in right shoulder
CPT/HCPCS: 72040; 73030

== ENCOUNTER → 2023-09-25 12:45 | Outpatient (CLI) | payer BC, SELFPAY ==
--- NOTE | ~2023-09-25 | MR_ITS ---
EXAMINATION: MR cervical spine wo con DATE: 09/25/2023 13:31 INDICATION: Cervicalgia TECHNIQUE: Magnetic resonance imaging (MRI) of the cervical spine was performed without intravenous c ontrast. Sequences included sagittal T2-weighted FSE, sagittal T2-weighted FS FSE, sagittal T1-weight ed FSE, axial MERGE and axial T2-weighted FSE. COMPARISON: None FINDINGS: Slight reversal of the normal cervical lordosis. Mild cervicothoracic levocurvature. Vertebral body h eights are normal. There are several T1 hyperintense hemangiomas at C5, T1, T3, T4 and T5. Bone marro w signal is otherwise normal throughout. There is likely developmental severe right-sided disc height loss with fusion across the right side of the disc space at C7-T1. Moderate disc height loss with de generative endplate changes at C5-C6 and C6-C7. Mild to moderate disc height loss at C4-C5. Cord sign al intensity is normal. Visualized cervical soft tissues are unremarkable. The following disc levels are specifically discussed: C2-C3: The disc does not extend beyond the endplate margin. There is no uncovertebral joint osteoarth ritis. There is mild right and severe left facet joint osteoarthritis. There is minimal left neural f oraminal stenosis. There is no central canal stenosis. C3-C4: Disc is mildly bulging. There is mild bilateral uncovertebral joint osteoarthritis. There is m oderate left and severe right facet joint osteoarthritis. There is mild left and moderate to severe r ight neural foraminal stenosis. There is mild central canal stenosis. C4-C5: Disc is bulging. There is moderate left and severe right uncovertebral joint osteoarthritis. T here is moderate left and mild right facet joint osteoarthritis. There is moderate bilateral neural f oraminal stenosis. There is mild central canal stenosis with mild indentation of the left ventral kacy face of the cord. C5-C6: Disc is bulging. There is moderate left and severe right uncovertebral joint osteoarthritis. T here is mild right and mild to moderate left facet joint osteoarthritis. There is mild to moderate ri ght and moderate left neural foraminal stenosis. There is mild central canal stenosis with mild danae ening of the ventral surface of the cord. C6-C7: Disc is bulging. There is moderate left and severe right uncovertebral joint osteoarthritis. T here is mild right and mild to moderate left facet joint osteoarthritis. There is moderate left and m oderate to severe right neural foraminal stenosis. There is mild central canal stenosis. C7-T1: The disc does not extend beyond the endplate margin. There is no left uncovertebral joint oste oarthritis with fusion across the right uncovertebral joint. There is no left-sided facet joint osteo arthritis. There appears to be fusion across the right facet joint. There is no neural foraminal sten osis. There is no central canal stenosis. IMPRESSION: 1. Moderate cervical spondylosis. 2. Mild cervicothoracic levocurvature related to severe likely developmental right-sided disc height loss at C7-T1 with fusion across the right side of the disc space as well as the right uncovertebral and facet joints. Reviewed, dictated and finalized at location B. RETE FOREMAN IMPRESSION: 1. Moderate cervical spondylosis. 2. Mild cervicothoracic levocurvature related to severe likely developmental ri ght-sided disc height loss at C7-T1 with fusion across the right side of the di sc space as well as the right uncovertebral and facet joints.
== END ==
PROVIDERS: Visit Provider Nurse Practitioner
DX: M47.892 Other spondylosis, cervical region (principal)
CPT/HCPCS: 72141

== ENCOUNTER 2023-10-08 13:10 | Outpatient (CLI) | payer BC, SELFPAY ==
--- NOTE | ~2023-10-08 | MM_ITS ---
EXAMINATION: MM diagnostic neno RT w jeff HISTORY: Developing clustered nonspecific right breast calcifications reported on September 17, 2023 s creening mammogram TECHNIQUE: Additional ML 3-D tomosynthesis images of the right breast were performed and synthetic 2- D images were generated. CAD analysis was submitted and interpreted. COMPARISON: September 17, 2023 bilateral screening mammogram July 31ilateral screening mammogram FINDINGS: Occasional benign calcifications are noted. No malignant calcifications are evident. IMPRESSION: 1. Benign finding 2. Routine annual mammographic screening is recommended BI-RADS Category 2: Benign finding(s). Reviewed, dictated and finalized at location A.
== END 2023-10-08 13:11 | disposition home or self-care (01) ==
PROVIDERS: Visit Provider Obstetrics & Gynecology
DX: R92.8 Other abnormal and inconclusive findings on diagnostic imaging of breast (principal)
CPT/HCPCS: 77061; 77065; G0279

== ENCOUNTER 2024-03-04 14:30 | Outpatient (CLI) | payer BC, SELFPAY ==
--- NOTE | ~2024-03-04 | US_ITS ---
US pelvic complete w TV Ordering provider: Iveth Saavedra APRN History: . N95.0 - Postmenopausal bleeding . Comparison: None. Technique: Transabdominal and endovaginal ultrasound of the pelvis (Doppler ultrasound interrogation techniques used as needed for this exam.) FINDINGS: CERVIX: Normal. UTERUS: Measures 8.8x 4.7x 4.6 cm in length which is within normal limits and is anteverted. Slightl y echogenic areas seen in the endometrial cavity which may be a Fibroid measuring 1.8 x 1.6 x 1.4 cm. ENDOMETRIUM: Normal in thickness measuring mm. No endometrial masses, cysts or fluid. CUL DE SAC: No free fluid. RIGHT OVARY: Not seen. LEFT OVARY: Normal in size measuring 2.2x 1.9x 2.6 cm. Normal echotexture. Doppler vascular flow pres ent. ADNEXA: Normal. No mass. IMPRESSION: Possible Fibroid uterus. Follow-up and further evaluation advised Otherwise, normal pelvic ultrasound . Reviewed, dictated and finalized at location A. IMPRESSION: Possible Fibroid uterus. Follow-up and further evaluation advised Otherwise, no rmal pelvic ultrasound.
== END 2024-03-04 14:31 ==
LOC: GOSHIMG 14:30
PROVIDERS: PCP Internal Medicine; Visit Provider Nurse Practitioner Family
DX: N95.0 Postmenopausal bleeding (principal)
CPT/HCPCS: 76830; 76856

== ENCOUNTER 2024-03-17 01:39 | Day surgery (SDC) | payer BC, SELFPAY ==
[2024-03-14 08:50] VITALS: BMI 28.3
--- NOTE | 2024-03-14 09:07 | SUR.PREOP ---
Report to the Outpatient Waiting Room, entrance under the green pavilion located off [facility], at time 0600 on date 03/14/24. Planned Procedure Time: 0730. Time changes happen often and if your time is changed the preop area will call you the afternoon before. - You and your visitor will be asked to self-screen and do not enter if you have any COVID symptoms. - A mask is optional within the hospital at this time. Patients may have clear liquids (water, carbonated beverages, clear teas, apple juice) until 3 hours prior to surgery with a maximum of 20 ounces. - No food from midnight until time of surgery - Infants may have breast milk until 4 hours before surgery, formula 6 hours prior to surgery. - Children will be allowed to drink immediately following surgery. If applicable, please bring a bottle or sippy cup to assist with drinking. Juice, water, soda, and popsicles are readily available. For infants on formula, please bring formula the day of surgery. Pacifiers are allowed. Take the following medications with a SIP of water the morning of surgery: ___ESTRADIOL, METOPROLOL,PROGESTERONE DO NOT STOP ANY OF YOUR OTHER PRESCRIPTION MEDICATIONS PRIOR TO SURGERY ?EXCEPT THE FOLLOWING Medications to discontinue per physician ____LASIX, LOSARTAN,SEMAGLUTIDE DAY OF SURGERY Date to take last dose Please no make-up, nail libyan, hairspray, perfume, deodorant, or body powder the day of surgery. No jewelry (including any body piercings) or valuables the day of surgery, leave them at home. Please take a shower or bath the night before, or the morning of, surgery with an antibacterial soap. Wear comfortable, loose fitting clothing. Children are encouraged to wear pajamas. - Jewelry must be removed prior to entering the operating room. Rings and piercings that are not removed may be cut off. - The hospital will not accept responsibility for valuables. - Please leave all valuables, including medications, at home the day of surgery. If you are going home after surgery, a licensed commercial driver's license driver must drive you home. - NO public transportation without another adult if you receive anesthesia. - We recommend that an adult stay with you for 24 hours following discharge. - We also recommend that you do not drive, make important decision, drink alcoholic beverages, or take any drugs that were not prescribed by your health care provider for at least 24 hours after your discharge time. For Pediatric surgeries, we recommend two adults accompany the child home. Follow any additional instructions given to you from your surgeon. If you or anyone in your household have experienced Covid symptoms in the past week, please notify your surgeon or the nurse liaison at the phone number below for possible testing. Telephone instructions given to __PATIENT__and asked if any additional questions and then verbalized understanding. Patient advised to call surgeon office or pre surgery nurse liaison [phone] if any additional questions.
[2024-03-17 06:48] LABS: Hematocrit 29.3 % (37.0-47.0); Hemoglobin 10.5 g/dL (12.0-15.0); Mean Corpuscular HGB Conc 35.8 g/dl (32-36); Mean Corpuscular Hemoglobin 32.6 pg (26-34); Mean Platelet Volume 9.2 fl (7.4-10.4); Platelet Count Result 229 k/mm3 (150-375); Red Blood Count 3.22 M/mm3 (4.2-5.4); Red Cell Distribution Width 12.2 % (11.5-14.5)
[2024-03-17 06:53] LABS: White Blood Count 1.9 K/mm3 (4.5-10.0)
[2024-03-17 07:00] VITALS: BP 109/83; PULSE 72; RESP 14; TEMP 36.1; O2SAT 100
[2024-03-17] MEDS: ACETAMINOPHEN 500 MG TABLET 1000 MG PO (07:00)
[2024-03-17] MEDS: LACTATED RINGERS 1,000 ML 30 ML IV CONT (07:00)
--- NOTE | 2024-03-17 07:17 | WPDHPUPDATE1 ---
History and Physical Update Update Date/Time: 03/17/24 07:17 History and Physical has been reviewed, including an updated exam of the patient. There are NO changes in the patient's condition. Risks, benefits, and alternatives have been discussed and questions answered. Patient agrees to proceed with procedure.
--- NOTE | 2024-03-17 07:22 | SUR.PREOP ---
pt had a critical lab, WBC 1.9, Dr. Espinal aware, dr leon aware. pt has Sjogren s syndrome that explains this result. pt is being followed by a dry wall installer who is monitoring her WBC.
--- NOTE | 2024-03-17 07:25 | WPDANESEPPF ---
Anes - Initial Pre Proc Eval Procedure: Operation Date: 03/17/24 07:30 Proposed Procedures p Hysteroscopy, Dilation and Curettage - Ronnie Vidales MD Date/Time: 03/17/24 07:25 Surgeon: Ronnie Vidales MD Pre Op Diagnosis: Post Menopausal Bleeding Patient Data Age: 53 Gender: F Height: 1.6 m Weight: 72.5 kg Last Vital Signs Temp 97 F L 03/17/24 07:00 Pulse 72 03/17/24 07:00 Resp 14 03/17/24 07:00 BP 109/83 03/17/24 07:00 Pulse Ox 100 03/17/24 07:00 O2 Del Method Room Air 03/17/24 07:00 Allergies Allergy/AdvReac Type Severity Reaction Status Date / Time prochlorperazine Allergy Intermediate facial Verified 03/17/24 07:22 [From Compazine] swelling Home Medications Medication Instructions Recorded Confirmed Type Symbicort 160 mcg-4.5 2 puff inhalation BID #10.2 grams 02/09/23 03/14/24 Rx mcg/actuation HFA aerosol inhaler (budesonide-formoterol) metoprolol succinate 100 mg 100 mg PO DAILY #90 tabs 10/13/23 03/14/24 Rx tablet,extended release 24 hr losartan 100 mg tablet 100 mg PO DAILY #90 tabs 10/19/23 03/14/24 Rx estradiol 2 mg tablet 2 mg PO DAILY #90 tabs 11/23/23 03/14/24 Rx progesterone micronized 100 mg 100 mg PO DAILY #90 caps 11/23/23 03/14/24 Rx capsule (Prometrium) tocilizumab 80 mg/4 mL (20 mg/mL) 80 mg IV MONTHLY 11/23/23 03/14/24 History intravenous solution (Actemra) pantoprazole 40 mg tablet,delayed 40 mg PO BID #60 tabs 12/07/23 03/14/24 Rx release semaglutide (weight loss) 2.4 2.4 mg (0.75 mL) subcut WEEKLY #3 12/29/23 03/14/24 Rx mg/0.75 mL subcutaneous pen mL injector (Wegovy) ondansetron HCl 4 mg tablet 4 mg PO DAILY PRN nausea and 01/20/24 03/14/24 Rx vomiting #20 tabs misoprostol 200 mcg tablet 200 mcg vaginal ONCE #2 tabs 03/09/24 03/14/24 Rx (Cytotec) escitalopram oxalate 10 mg tablet 10 mg PO HS 03/14/24 03/14/24 History (Lexapro) furosemide 20 mg tablet 20 mg PO DAILY 03/14/24 03/14/24 History Laboratory Tests 03/17/24 06:37 WBC 1.9 L* K/mm3 (4.5-10.0) RBC 3.22 L M/mm3 (4.2-5.4) Hgb 10.5 L g/dL (12.0-15.0) Hct 29.3 L % (37.0-47.0) MCV 91.0 fl (80-100) MCH 32.6 pg (26-34) MCHC 35.8 g/dl (32-36) RDW 12.2 % (11.5-14.5) Plt Count 229 k/mm3 (150-375) MPV 9.2 fl (7.4-10.4) Patient hx anesthesia problems: none Family hx anesthesia problems: none Results Review: All pre-operative results and documents have been reviewed as part of the pre-operative evaluation. [facility] Past Medical History Medical History Acute anxiety Alcohol abuse Cardiomegaly Connective tissue disease Gastroesophageal reflux disease Hypertension Interstitial lung disease Psoriasis Rheumatoid arthritis Sjogren syndrome with lung involvement Sjogren's syndrome Suspected sleep apnea Surgical History Surgical History History of appendectomy [place] teeth extracted Family History Family History Father , [place] 2017 Acute myocardial infarction Hypertension Aortic dissection Mother Fibromyalgia Hypothyroidism Other Cervical cancer Social History Social History Social History: Surrogate decision maker: Nader Jacobo, .no biologic children but has a stepchild. She stated that she quit drinking since her last admission in October Code status: Full code. Smoking status: Never smoker Second hand tobacco smoke exposure: No Alcohol intake: former Alcohol use details: Longstanding history of alcohol abuse though she has been sober for upwards of 9 to 10 years. Reports drinking approximately 12 White Claws a day at this time. Substance use: never Substance use type: does not use Do You Feel Safe
--- NOTE | 2024-03-17 07:55 | W.PM.PROC2 ---
Procedure Note - Detailed Date of Procedure 03/17/24 Pre-op Diagnosis Post Menopausal Bleeding Post-op Diagnosis Same Procedure Performed Hysteroscopy with uterine curettings Surgeon Ronnie Vidales MD Anesthesia MAC Findings 1. 5cc old blood in uterus 2. No anatomic abnormalities Description of Procedure Patient was prepped and draped usual manner for this procedure. Cervix was dilated to allow the hysteroscope to be placed which reveals findings as above, old blood drained and cleared with the hysteroscope. Once this was done the cavity did not appear abnormal or thickened though it was slightly vascular. Curettings were obtained throughout, and procedure was considered terminated. Patient was sent to recovery room in stable condition. Estimated Blood Loss 10 Drains No Packing No Pathology Yes Complications No immediate complications Condition Stable Disposition PACU [facility] Billing Surgery - Charge Forward: Surgery Billing
[2024-03-17 07:59] VITALS: BP 119/83; PULSE 70; RESP 12; O2SAT 100
[2024-03-17 08:20] VITALS: BP 132/88; PULSE 62; RESP 14; O2SAT 100
[2024-03-17 08:45] VITALS: BP 131/89; PULSE 61; RESP 14
[2024-03-17 09:10] VITALS: BP 130/90; PULSE 64; RESP 12
== END 2024-03-17 09:38 | disposition home or self-care (01) ==
PROVIDERS: PCP Nurse Practitioner; Visit Provider Obstetrics & Gynecology
PROC: 0U5B8ZZ Destruction of Endometrium, Via Natural or Artificial Opening Endoscopic (ICD-10-PCS; CPT 58563; principal; 2024-03-17 07:30)
DX: N95.0 Postmenopausal bleeding (principal); F41.9 Anxiety disorder, unspecified; K21.9 Gastro-esophageal reflux disease without esophagitis; I10 Essential (primary) hypertension; J84.9 Interstitial pulmonary disease, unspecified; M35.02 Sjogren syndrome with lung involvement; Z79.51 Long term (current) use of inhaled steroids; Z79.85 Long-term (current) use of injectable non-insulin antidiabetic drugs; Z98.890 Other specified postprocedural states; Z80.49 Family history of malignant neoplasm of other genital organs; Z82.49 Family history of ischemic heart disease and other diseases of the circulatory system
CPT/HCPCS: 58558; 36415; 85027; 88305; A9270; J1100; J2250; J2405; J2704; J3010; J7120

== ENCOUNTER 2024-06-02 07:52 | Outpatient (CLI) | payer BC, SELFPAY ==
[2024-06-26 19:37] VITALS: BMI 26.5
--- NOTE | 2024-06-26 19:37 | WPDSLEEPSTUD ---
Sleep Study Date of Study: 06/02/24 Ordering Provider: Jax Mitchell APRN Interpreting Physician: Evelia Vinson DO Sleep Study Type: Polysomnogram Height: 1.57 m Weight: 65.771 kg Body Mass Index: 26.5 Neck Circumference (inches): 14 [place]: 4 Reason for Sleep Study Difficulty tolerating her BPAP. Stopped using it several months ago. Re-evaluation for EBENEZER. Sleep History The patient is a 53-year-old female with previously diagnosed sleep apnea on BPAP that had a sleep study ordered by the pulmonary group for re-evaluation of sleep apnea after difficulty tolerating her current pressure settings. The patient occasionally awakens from sleep short of breath. She frequently awakens at night with heartburn, belching or cough. She occasionally snores but is never loud enough that others complain. She frequently has trouble sleeping when she has a cold. She rarely wakes up gasping for air throughout the night. She rarely has breathing problems at night observed by herself or others. She rarely sweats excessively at night. She rarely has heart palpitations or irregular heartbeats during the night. She frequently falls asleep during the day but never while driving. She occasionally experiences loss of muscle tone when extremely emotional. She rarely has trouble at school or work due to sleepiness. She rarely feels unable to move while waking up or falling asleep. He rarely experiences vivid dreamlike scenes upon awakening or falling asleep. She rarely feels afraid going to sleep. She occasionally has nightmares. She occasionally remembers her dreams. She occasionally has thoughts racing through her mind. She occasionally feels sad or depressed. She frequently has anxiety. She constantly has muscular tension GERD she occasionally notices parts of her body jerk. She rarely kicks during the night. She rarely has crawling and aching feelings in her legs and rarely has leg pain during the night. She frequently grinds her teeth during sleep but rarely awakens with morning jaw pain. She is frequently bothered by pain during the day frequently awakened by pain during the night. She frequently wakes up feeling stiff in the morning. She constantly wakes up with sore or achy muscles. She constantly wakes up with pain in the neck, spine and other joints. She goes to bed at 9:00 p.m. on both weekdays and weekends. It takes her 30 minutes to fall asleep. She wakes up 4 times throughout the night to urinate and is able to fall back asleep within 15 minutes. She wakes up between 5-6 a.m. on weekdays and at 7:00 a.m. on weekends. She typically gets 9-10 hours of sleep per night. She denies staying in bed after waking up in the morning. She currently lives with her . She denies consuming any caffeinated beverages within 2 hours of bedtime. She denies engaging in physical exercise before bedtime. He will read and watch television before falling asleep. She will take naps in afternoon to evening but they are not refreshing. She consumes 3-4 cups of coffee per day. She denies tobacco, alcohol and recreational drug use. [facility] Past Medical History Medical History Acute anxiety Alcohol abuse Cardiomegaly Connective tissue disease Gastroesophageal reflux disease Hypertension Interstitial lung disease Psoriasis Rheumatoid arthritis Sjogren syndrome with lung involvement Sjogren's syndrome Suspected sleep apnea Surgical History Surgical History H/O gynecological procedure 03/17/24 hscope d&c History of appendectomy [place] teeth extracted Family History Family History Father , [place] 2017 Acute myocardial infarction Hypertension Aortic dissection Mother Fibromyalgia Hypothyroidism Other Cervical cancer Social History Social History Social History: Surrogate decision maker: Nader Jacobo, .no biologic children but has a stepchild. She stated that she quit drinking since her last admission in October Code status: Full code. Smoking status: Never smoker Second hand tobacco smoke exposure: No Alcohol intake: former Alcohol use details: Longstanding history of alcohol abuse though she has been sober for upwards of 9 to 10 years. Reports drinking approximately 12 White Claws a day at this time. Substance use: never Substance use type: does not use Do You Feel Safe in your Home?: Yes Lack of Transportation: No Lack of Food: Never True Current Housing: I Have Housing Concerned About Future Housing: No Difficulty Paying Gas/Electric Bills: No Difficulty Paying for Meds: No Education: Master's Degree or Higher Difficulty w/ Childcare or Family Care: No Living arrangements: with family Additional living arrangements comments: The patient lives with her in [place]. Recently moved here from [place]. 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ns: No Medications Home Medications Medication Instructions Recorded Confirmed Type Symbicort 160 mcg-4.5 2 puff inhalation BID #10.2 grams 02/09/23 05/19/24 Rx mcg/actuation HFA aerosol inhaler (budesonide-formoterol) metoprolol succinate 100 mg 100 mg PO DAILY #90 tabs 10/13/23 05/19/24 Rx tablet,extended release 24 hr tocilizumab 80 mg/4 mL (20 mg/mL) 80 mg IV MONTHLY 11/23/23 05/19/24 History intravenous solution (Actemra) pantoprazole 40 mg tablet,delayed 40 mg PO BID #60 tabs 12/07/23 05/19/24 Rx release escitalopram oxalate 10 mg tablet 10 mg PO HS #90 tabs 03/25/24 05/19/24 Rx (Lexapro) losartan 100 mg tablet 100 mg PO DAILY #90 tabs 03/25/24 05/19/24 Rx estradiol 1 mg tablet 1 mg PO DAILY #90 tabs 04/01/24 05/19/24 Rx progesterone micronized 200 mg 200 mg PO QHS #90 caps 04/01/24 05/19/24 Rx capsule (Prometrium) semaglutide (weight loss) 2.4 2.4 mg (0.75 mL) subcut WEEKLY #3 04/14/24 05/19/24 Rx mg/0.75 mL subcutaneous pen mL injector (Tajvmarko) triamcinolone acetonide 0.1 % 1 applic topical DAILY PRN 04/14/24 05/19/24 Rx topical ointment psoriasis #454 grams furosemide 20 mg tablet 20 mg PO DAILY #180 tabs 05/17/24 05/19/24 Rx ondansetron HCl 4 mg tablet 4 mg PO DAILY PRN nausea and 06/10/24 Rx vomiting #10 tabs Sleep Procedure A full night polysomnogram using the BUKA multi-channel system recorded the standard physiologic parameters including EEG, EOG, submentalis EMG, anterior tibialis EMG, EKG, body position, nasal and oral airflow using nasal pressure sensor and thermistor.? Respiratory parameters of chest and abdominal movements were recorded with Respiratory Inductance Plethysmography belts. Oxygen saturation was recorded by pulse oximetry. Video monitoring was also performed. Sleep stages, periodic limb movements, and EEG arousals were scored in 30 second epochs according to the criteria of the AASM Scoring Manual. The Apnea-Hypopnea Index was calculated using CMS guidelines for definition of hypopnea with 4% O2 desaturations while scoring respiratory events. Sleep Architecture The total recording time was 483.4 minutes.? The total sleep time was 401.5 minutes. Sleep latency was 21.1 minutes. REM latency was 167.0 minutes. Sleep efficiency was 83.1%. The patient had 35 awakenings for an awakening index of 5.2. Wake after sleep onset time was 60.5 minutes. The patient spent 46.0 minutes, 11.5% of total sleep time in Stage N1. The patient spent 229.0 minutes, 57.0% in Stage N2. The patient spent 47.5 minutes, 11.8% in Stage N3. The patient spent 79.0 minutes, 19.7% in Stage REM sleep. Respiratory Analysis The patient had 2 hypopneas, 5 obstructive apneas and 7 central apneas for an overall Apnea Hypopnea Index of 2.1. The REM Apnea Hypopnea Index was 6.8. The NREM Apnea Hypopnea Index was 0.9. The patient had a Central Apnea Hypopnea Index of 1.0. There was no evidence of Yahir-Carver Respirations. Arousals There were 240 total arousals for an arousal index of 35.9. There were 124 spontaneous arousals for an index of 18.5. There were 14 arousals due to respiratory events for an index of 2.1. There were 75 arousals due to periodic limb movements for an index of 11.2.? There were 27 arousals due to isolated limb movements for an index of 4.0. Periodic Limb Movements The patient had 51 isolated limb movements with an index of 7.6. The patient had 288 periodic limb movements with an index of 43.0, which is elevated (normal < 15). Patient had a total of 339 limb movements with a total limb movement index of 50.7. Oximetry Data The patient had an average oxygen saturation of 97.3% in sleep with a minimum oxygen saturation of 88.0% and a maximum oxygen saturation of 100.0%. The patient had 5 oxygen desaturations that were 4% or greater resulting in an Oxygen Desaturation Index of 0.7.? The patient spent 0 minutes of total sleep time with an oxygen saturation below 88%. Snoring Profile Snoring was not present during this study. Cardiac Profile The EKG showed normal sinus rhythm. No arrhythmias or PVCs were seen.?The patient had an average pulse rate of 73.8 bpm with a minimum pulse of rate of 62.0 bpm and a maximum pulse rate of 93.0 bpm.? EEG Profile No signs of seizure activity seen. Assessment and Plan Assessment and Plan (1) PLMD (periodic limb movement disorder): Code(s): G47.61 - Periodic limb movement disorder Status: Acute Assessment and Plan: The patient had an overall AHI of 2.1 with desaturation down to 88%. This is not consistent with sleep-disordered breathing. The patient had a significant number of limb movements during the study with the majority being periodic in nature. Approximately 25% of the periodic limb movements caused arousals in the patient's sleep. The patient's sleep history does not suggest Restless Leg Syndrome. I recommend that the patient have a serum ferritin drawn for evaluation of iron deficiency anemia. If the patient has a serum ferritin less than 75 ng/mL, I recommend starting a daily iron supplement and a Vitamin C supplement for better absorption. If the serum ferritin is greater than 75 ng/mL, I recommend starting a dopamine agonist and titrating the dose until symptoms resolve. There are nonpharmacological methods to treat limb movements including daily exercise, stretching calf muscles before bed, avoiding excessive amounts of caffeine and alcohol, vitamin B supplementation, magnesium lotion massaged into legs before bed, and use of a weighted blanket. Data The data obtained during this sleep study is adequate for interpretation. Certification This sleep study has been reviewed by a board certified sleep medicine physician.
== END 2024-06-03 05:48 | disposition home or self-care (01) ==
LOC: ANHCSM 07:53
PROVIDERS: PCP Nurse Practitioner; Visit Provider Nurse Practitioner Family
DX: G47.33 Obstructive sleep apnea (adult) (pediatric) (principal); G47.61 Periodic limb movement disorder; R40.0 Somnolence; J84.9 Interstitial pulmonary disease, unspecified; R09.02 Hypoxemia
CPT/HCPCS: 95810

== ENCOUNTER 2025-03-29 08:42 | Outpatient (CLI) | payer BC, SELFPAY ==
--- OUTSIDE RECORDS SUMMARY | 2024-03-10 12:00 | XMS_ITS ---
Author Organization [facility] Address [address] [place] [address] Care Team Providers Care Educational Therapy Teacher Name Role Phone Greg Montano Unavailable [phone] REASON FOR VISIT *rf f/u [employer] Encounters Encounter Location Date Provider Diagnosis [facility] [address] [place] [address] 03/10/2024 Greg Montano Plan Of Treatment No Information Progress Notes * Sterling SANTANAaDOB:1970 ( 54 yo F)Acc No.[id number]:03/10/2024 Progress Notes Patient: Meri WANG Provider: Mariana Montano MD :1970 A ge:53 Y S ex:Female Date:03/10/2024 Address:[address] [place] [address] Subjective: * Chief Complaints: * 1 . *rf f/u [employer]. * Medical History: Objective: * Vitals: Assessment: Plan: * Treatment: * * Electronic signature of Maggie Montano MD on 03/29/2025 at 10:11 AM EDT Sign off status: Pending * Provider: Mariana Montano MD Date: 0 03/10/2024 Generated for Sheila khan/Rob/Yeseniaitting on: 03/29/2025 10:11 AM EDT
--- OUTSIDE RECORDS SUMMARY | 2024-08-15 03:30 | XMS_ITS ---
Author Organization [facility] [place] Address [address] [address] Care Team Providers Care Weed Cooking Operator Name Role Phone Greg Montano Unavailable [phone] REASON FOR VISIT Bilateral cervical medial branch RFA Encounters Encounter Location Date Provider Diagnosis [facility] [address] [place] [address] 08/15/2024 Greg Montano Plan Of Treatment No Information Progress Notes * Sterling SANTANAaDOB:1970 ( 54 yo F)Acc No.[id number]:08/15/2024 Patient: Meri WANG Provider: Mariana Montano MD :1970 A ge:53 Y S ex:Female Date:08/15/2024 Address:[address] [place] [address] Subjective: * Chief Complaints: * 1 . Bilateral cervical medial branch RFA. * Medical History: Objective: * Vitals: Assessment: Plan: * Treatment: * * Electronic signature of Maggie Montano MD on 03/29/2025 at 10:11 AM EDT Sign off status: Pending * Provider: Mariana Montano MD Date: 0 08/15/2024 Generated for Sheila khan/Rob/Yeseniaitting on: 0 03/29/2025 10:11 AM EDT
--- NOTE | ~2025-03-29 | MM_ITS ---
EXAMINATION: MM screening [facility] BI w jeff HISTORY: Screening TECHNIQUE: Craniocaudal and mediolateral oblique 3-D tomosynthesis images were obtained and synthetic 2-D images were generated. CAD analysis was submitted and interpreted. COMPARISON: Mammograms from 10/08/2023, 09/17/2023 and 07/31/2022 BREAST PARENCHYMAL COMPOSITION: The breasts are extremely dense, which lowers the sensitivity of mammography. FINDINGS: There is no evidence of suspicious mass, calcification, or architectural distortion to suggest malignancy. There has been no suspicious interval change. IMPRESSION: 1. No mammographic evidence of malignancy. Recommend routine screening mammography in one year. BI-RADS Category 2: Benign finding(s) Reviewed, dictated and finalized at location Q. IMPRESSION: 1. No mammographic evidence of malignancy. Recommend routine screening mammogra phy in one year. BI-RADS Category 2: Benign finding(s)
--- OUTSIDE RECORDS SUMMARY | 2025-03-29 09:11 | XMS_ITS | Encounter Summary ---
Author Organization [facility] Address [address] [place] [address] Phone Care Team Providers Care Water Pollution Control Technician Name Role Phone Stephanie Blanton MD Unavailable [phone] Kamila Parikh NP Primary Care Provider Encounter Details Date Type Department Care Team (Late st Contact Info) Description 02/22/2025 Results Follow-Up [facility] Medicine Rheumatology [address] [facility] Advanced Medicine 5th [place] [address] [place] [address] Stephanie Blanton MD [address] [facility] [address] [place] [address] Comprehensive metabolic panel, CBC with auto differential, Differential, auto, eGFR Social History Tobacco Use Types Packs/Day Years Used Date Smoking Tobacco: Never Smokeless Tobacco: Never AUDIT-C Answer Date Recorded Frequency of Alcohol Consumption Not on file 10/24/2024 Q2: How many drinks containi ng alcohol do you have on a typical day when you are drinking? Patient does not drink Frequency of Binge Drinking Not on file 09/26 PHQ-2 Answer Date Recorded PHQ-2 Total Score (If total score is 3 or more points, staff should administer the PHQ-9) 0 10/24/2024 Comments No Sex and Gender Information Value Date Recorded Sex Assigned at Not on file Legal Sex Female 9:34 AM CDT Gender Identity Female 03/31/2024 9:37 AM CDT Sexual Orientation Straight 03/31/2024 9: 37 AM CDT documented as of this encounter Plan of Treatment Scheduled Procedures Name Priority Associated Diagnoses Date/Ti me FUSION CERVICAL ANTERIOR DISCECTOMY WITH INSTRUMENTATION Cervical disc disorder with radiculopathy of cervical region SPINAL CORD MONITORING Cervical disc disorder with radiculopathy of cervical region documented as of this encounter Visit Diagnoses Not on filedocumented in this encounter Care Teams Water Pollution Control Technician Relationship Specialty Start Date End Date Kamila Parikh RECREATIONAL LEADER [address] [place] [address] [address] PCP - General Family Medicine 10/24/24 Stephanie Blanton MD [address] [address] Fellow Rheumatology 03/03/24 documented as of this encounter
--- OUTSIDE RECORDS SUMMARY | 2025-03-29 09:11 | XMS_ITS | Encounter Summary ---
Author Organization [facility] Address [address] [place] [address] Phone Care Team Providers Care Payloader Machine Operator Name Role Phone Stephanie Blanton MD Unavailable [phone] Kamila Parikh NP Primary Care Provider Encounter Details Date Type Department Care Team (Late st Contact Info) Description 01/30/2025 Results Follow-Up [facility] Medicine Rheumatology [address] [facility] Advanced Medicine 5th [place] [address] [place] [address] Stephanie Blanton MD [address] [facility] [address] [place] [address] Comprehensive metabolic panel, CBC with auto differential Social History Tobacco Use Types Packs/Day Years [...] on filedocumented in this encounter Care Teams Payloader Machine Operator Relationship Specialty Start Date End Date Kamila Parikh E LEARNING DESIGNER [address] [place] [address] PCP - General Family Medicine 10/24/24 Stephanie Blanton MD [address] [address] Fellow Rheumatology 03/03/24 documented as of this encounter
--- OUTSIDE RECORDS SUMMARY | 2025-03-29 09:11 | XMS_ITS | Encounter Summary ---
Author Organization [facility] Address [address] [place] [address] Phone Care Team Providers Care Adjunct Psychology Professor Name Role Phone Felipa Bernard NP Primary Care Provider [phone] Stephanie Blanton MD Unavailable [phone] Kamila Parikh NP Primary Care Provider Encounter Details Date Type Department Care Team (Latest Contact Info) Description 06/30/2022 Orders Only [facility] Scanning, Provider Social History Tobacco Use Types Packs/Day Years Used Date Smoking Tobacco: Never Comments Unknown Sex and Gender Information Value Date Recorded [...] cervical region documented as of this encounter Procedures Procedure Name Priority Date/Time Associated Diagnosis Comments SCAN - LABS 06/30/2022 documented in this encounter Results * SCAN - LABS (06/30/2022) us Provider Scanning Final Result documented in this encounter Visit Diagnoses Not on filedocumented in this encounter Care Teams Adjunct Psychology Professor Relationship Specialty Start Date End Date Felipa Bernard [employer] PCP - General Nurse Practitioner 12/04/21 10/23/24 Kamila Parikh NP [address] [place] [id number] PCP - General Family Medicine 10/24/24 Stephanie Blanton MD [id number] [address] Fellow Rheumatology 03/03/24 documented as of this encounter
--- OUTSIDE RECORDS SUMMARY | 2025-03-29 09:11 | XMS_ITS | Clinical Summary ---
Author Organization [facility] Address [address] [place] [address] Care Team Providers Care Tooler Name Role Phone Stephanie Blanton MD Unavailable [phone] Kamila Parikh NP Primary Care Provider Allergies Active Allergy Reactions Criticality Noted Date Comments Other Other (See comments) Low 08/08/2014 No narcotics prescribed through our office due to failed urine drug screen on pain contract. Prochlorperazine Edema,Swelling Medium 04/27/2008 Facial swelling tongue Rituximab Swelling Medium 10/03/2022 Developed hands, face swelling after 1 day , discontinued Medications albuterol HFA (PROVENTIL HFA,VENTOLIN HFA,PROAIR HFA) 90 mcg/actuation inhaler INHALE 1 TO 2 PUFFS BY MOUTH EVERY 4 TO 6 HOURS NEEDED FOR SHORTNESS OF BREATH OR WHEEZING 2 Active Symbicort 160-4.5 mcg/actuation inhaler INHALE 2 PUFFS BY MOUTH EVERY 12 HOURS. RINSE MOUTH AND SPIT 2 Active estradioL (ESTRACE) 2 mg tablet Take 1 tablet (2 mg total) by mouth daily 3 Active mupirocin (BACTROBAN) 2 % ointmentIndicati ons:Methicillin- Resistant S. Aureus Nasal Colonization Apply to each nostril 2 (two) times a day Apply pea size amount into each nostril twice a day for 5 days prior to surgery. 22 g 4 Active sodium chloride 1 gram tablet Take 3 tablets (3 g total) by mouth 3 (three) times a day 270 tablet 10 4 Active furosemide (LASIX) 20 mg tablet Take 1 tablet (20 mg total) by mouth 2 (two) times a day 60 tablet 11 4 025 Active ibuprofen (ADVIL,MOTRIN) 800 mg tablet Take 1 tablet (800 mg total) by mouth every 4 (four) hours Active triamcinolone (KENALOG) 0.1 % ointment APPLY TOPICALLY TO THE AFFECTED AREA DAILY NEEDED FOR PSORIASIS 4 Active PreviDent 5000 Sensitive 1.1-5 % paste BRUSH THOROUGHLY AND SPIT OUT EVERY NIGHT AT BEDTIME - DO NOT RINSE 4 Active progesterone (PROMETRIUM) 200 mg capsule Take 1 capsule (200 mg total) by mouth daily 8 Active multivitamin-Ca- iron-minerals tablet Take 1 tablet by mouth daily Active miSOPROStoL (CYTOTEC) 200 mcg tablet Take 1 tablet (200 mcg total) by mouth 4 (four) times a day 360 tablet 3 5 026 Active losartan (COZAAR) 100 mg tablet Take 1 tablet (100 mg total) by mouth daily 90 tablet 1 5 Active metoprolol XL (TOPROL-XL) 100 mg 24 hr tablet Take 1 tablet (100 mg total) by mouth daily 90 tablet [address] (PROTONIX) 40 mg EC tablet Take 1 tablet (40 mg total) by mouth 2 (two) times a day 180 tablet 1 5 Active escitalopram (LEXAPRO) 10 mg tablet Take 1 tablet (10 mg total) by mouth daily 90 tablet 1 5 Active valACYclovir (VALTREX) 1 gram tablet Take 1 tablet (1,000 mg total) by mouth every 12 (twelve) hours 5 Active ondansetron (ZOFRAN) 4 mg tabletIndication s:Overweight (BMI 25.0-29.9) Take 1 tablet (4 mg total) by mouth every 8 (eight) hours as needed for nausea or vomiting 20 tablet 1 5 Active Wegovy 2.4 mg/0.75 mL auto-injectorInd ications:Overwei ght (BMI 25.0-29.9) Inject 2.4 mg under the skin every 7 days 3 mL 1 5 Active sulfaSALAzine EN (AZULFIDINE EN) 500 mg EC tablet Take 1 tablet (500 mg total) by mouth daily for 7 days, THEN 1 tablet (500 mg total) 2 (two) times a day for 7 days, THEN 2 tablets (1,000 mg total) 2 (two) times a day. 741 tablet 5 026 Active ondansetron (ZOFRAN) 4 mg tabletIndication s:Class 1 obesity due to excess calories with serious comorbidity and body mass index (BMI) of 31.0 to 31.9 in adult Take 1 tablet (4 mg total) by mouth every 8 (eight) hours as needed for nausea or vomiting 20 tablet 1 5 025 Discontin ued(Reord er) hydrOXYzine (ATARAX) 25 mg tabletIndication s:Situational mixed anxiety and depressive disorder Take 1 tablet (25 mg total) by mouth 3 (three) times a day as needed for anxiety 90 tablet 1 5 025 Discontin ued(Patie nt Reported) Wegovy 2.4 mg/0.75 mL auto-injectorInd ications:Class 1 obesity due to excess calories with serious comorbidity and body mass index (BMI) of 31.0 to 31.9 in adult ADMINISTER 2.4 MG UNDER THE SKIN EVERY 7 DAYS 3 mL 1 5 025 Discontin ued(Reord er) Active Problems Problem Noted Date Diagnosed Date Chronic fatigue 03/17/2025 Assessment & Plan (03/17/2025 10:05 AM CDT): -Chronic, not at goal -Continue follow up with Rheumatology Overweight (BMI 25.0-29.9) 10/24/2024 Assessment & Plan (03/17/2025 10:05 AM CDT): -chronic, stable goal BMI <30 Healthy, high-protein, lower carbohydrate, lower fat lifestyle and exercise for 150min/week recommended -Continue on Wegovy 2.4 mg weekly and Zofran 4 mg 1 tablet every 8 hours as needed for nausea/vomiting Orders: ondansetron (ZOFRAN) 4 mg tablet; Take 1 tablet (4 mg total) by mouth every 8 (eight) hours as needed for nausea or vomiting Wegovy 2.4 mg/0.75 mL auto-injector; Inject 2.4 mg under the skin every 7 days Assessment & Plan (10/24/2024 5:09 PM CDT): Wt Readings from Last 3 Encounters: 10/24/24 75.8 kg (167 lb) 08/01/24 69.9 kg (154 lb 3.2 oz) 07/14/24 69.9 kg (154 lb) Body mass index is 31.04 kg/m . -Stable, not at goal of <30 bmi -Currently takes wegovy 2.4 mg weekly -Discussed recommendations for exercise at least 30 minutes moderate to vigorous exercise as tolerated most days of the week. (minimum 150 minutes weekly) -Discussed importance of well-balanced diet Situational mixed anxiety and depressive disorde r 10/24/2024 Assessment & Plan (03/17/2025 10:05 AM CDT): -Chronic, stable -Continue on Lexapro 10 mg daily Patient reiterated no suicidal thoughts at this time; take medication as directed; contact 911 and go to the ER if becomes suicidal; discussed side effects of medication with patient; encouraged healthy diet and exericise; encouraged patient to see a counselor Assessment & Plan (10/24/2024 5:10 PM CDT): -chronic, controlled -patient currently takes Lexapro 10 mg daily -Follows with with a therapist regularly -Patient does endorse some ongoing anxiety/difficulty shutting her brain off to sleep -patient denies any worsening of depressed mood, thoughts of harming themselves or others -Hydroxyzine 25 mg t.i.d. as needed prescribed -continue current treatment plan Diabetes mellitus 10/24/2024 Preventative health care 10/24/2024 Assessment & Plan (10/24/2024 5:19 PM CDT): - New or chronic worsening conditions: Sleep difficulties due to anxiety - Mental health: Mild difficulty with anxiety/sleep patient's - Dental health: Up to date with regular dental care and cleaning. Discussed importance of regular tooth brushing, flossing, and dental visits. - Nutrition: Stressed importance of moderation in sodium/caffeine intake, saturated fat and cholesterol, caloric balance, sufficient intake of fresh fruits, vegetables - Exercise: Stressed the importance of regular exercise - Immunizations: Age and sex appropriate immunizations reviewed and offered - Cervical Cancer screening: Up-to-date per patient - Breast Cancer screening: Up-to-date per patient - Colon cancer screening: Up-to-date per patient - Lung cancer screening: Not indicated at this time - Bone desnity/osteoporosis screening: Not indicated at this time - control: Menopausal Hypertension, essential 10/24/2024 Assessment & Plan (10/24/2024 5:13 PM CDT): BP Readings from Last 3 Encounters: 10/24/24 112/58 09/28/24 108/76 08/29/24 116/81 -chronic, at goal of <140/90 -currently taking losartan 100 mg, metoprolol 100 mg, Lasix 20 mg b.i.d. -patient reports checking blood pressure regularly at home -encourage patient to continue low-sodium diet -continue current treatment plan Seizure disorder 10/24/2024 Cervical disc disorder with radiculopathy of cervical region 02/01/2024 Immunocompromised 01/29/2024 Rheumatoid arthritis involvi ng multiple sites with positive rheumatoid factor 04/04/2022 Interstitial lung disease 04/04/2022 Assessment & Plan (10/24/2024 5:15 PM CDT): -Chronic, controlled -Associated with Sjogren's disease -Follows with Rheumatology -Continue current treatment plan Connective tissue disease 03/19/2022 Assessment & Plan (10/24/2024 5:15 PM CDT): -Chronic, controlled -Associated with Sjogren's disease -Follows with Rheumatology -Continue current treatment plan Sjogren's disease 03/08/2022 Assessment & Plan (10/24/2024 5:15 PM CDT): -Chronic, controlled -Follows with Rheumatology regularly -Associated with interstitial lung disease connective tissue disorder -Continue current treatment plan with specialist Alcoholism in remission 10/12/2007 Overview (10/24/2024): No narcotics prescribed through our office due to failed urine drug screen 08/02/2014. Assessment & Plan (10/24/2024 5:09 PM CDT): -Chronic, improved -Patient endorses ongoing alcohol remission for 1.5 years -Family history of alcohol abuse -Patient endorses motivation to continue sobriety -Continue current treatment plan Encounters Date Type Department Care Team Description 03/21/2025 7:45 AM CDT Office Visit [facility] Medicine Rheumatology [address] [facility] 5th [place] [address] [place] [phone] Stephanie Blanton MD Rheumatoid arthritis involving multiple sites with positive rheumatoid factor (HCC) (Primary Dx); Long-term use of high-risk medication 03/20/2025 8:00 AM CDT Infusion [facility] Medicine Infusion Therapy [address] [place] [address] [address] [place] [phone] Connective tissue disease (Primary Dx); Interstitial lung disease (HCC); Rheumatoid arthritis involving multiple sites with positive rheumatoid factor (HCC) 03/20/2025 7:57 AM CDT - 03/20/2025 11:59 PM CDT Hospital Encounter [facility] [address] [place] [address] Connective tissue disease; Interstitial lung disease (HCC); Rheumatoid arthritis involving multiple sites with positive rheumatoid factor (HCC) Discharge Disposition: Discharge to home or self care 03/16/2025 Orders Only [facility] Medicine Nephrology [address] [facility] 5th [place] [address] [place] [address] Renay Pruitt MD Gross hematuria (Primary Dx); MGUS (monoclonal gammopathy of unknown significance); Hyponatremia; Hypertension, unspecified type; Sjogren's syndrome, with unspecified organ involvement 03/15/2025 2:00 PM CDT Office Visit [facility] at [address] [place] [address] Jessie Luna NP Situational mixed anxiety and depressive disorder (Primary Dx); Bilateral foot pain; Chronic fatigue; Overweight (BMI 25.0-29.9) 03/15/2025 Telephone [facility] at [address] [place] [address] Kamila Parikh NP 02/22/2025 Results Follow-Up [facility] Medicine Rheumatology [address] [facility] 5th [place] [address] [place] [phone] Stephanie Blanton MD Comprehensive metabolic panel, CBC with auto differential, Differential, auto, eGFR 02/20/2025 8:15 AM CDT - 02/20/2025 11:59 PM CDT Hospital Encounter [facility] [id number] [place] [address] Connective tissue disease; Interstitial lung disease (HCC); Rheumatoid arthritis involving multiple sites with positive rheumatoid factor (HCC) Discharge Disposition: Discharge to home or self care 02/20/2025 8:15 AM CDT Infusion [facility] Medicine Infusion Therapy [address] [facility] [address] [place] [phone] Connective tissue disease (Primary Dx); Interstitial lung disease (HCC); Rheumatoid arthritis involving multiple sites with positive rheumatoid factor (HCC) 01/30/2025 Results Follow-Up [facility] Medicine Rheumatology [address] [place] [phone] Stephanie Blanton MD Comprehensive metabolic panel, CBC with auto differential 01/26/2025 Orders Only [facility] Medicine Infusion Therapy [address] [facility] 2nd Floor [address] [place] [address] Margaux Talbert, DANNY 01/23/2025 8:15 AM CDT Lab [facility] Medicine Endocrinology Metabolism and Lipid [address] [facility] 5th [place] [phone] Connective tissue disease [M35.9] (Primary Dx); Interstitial lung disease (HCC) [J84.9]; Rheumatoid arthritis involving multiple sites with positive rheumatoid factor (HCC) [M05.79] 01/23/2025 8:00 AM CDT Infusion [facility] Medicine Infusion Therapy [address] [facility] 5th [place] [address] [place] [address] Connective tissue disease (Primary Dx); Interstitial lung disease (HCC); Rheumatoid arthritis involving multiple sites with positive rheumatoid factor (HCC) 12/30/2024 Results Follow-Up [facility] at [address] [place] [address] Kamila Parikh, RN CLINICAL REVIEW Iron profile w/ IBC 12/28/2024 Results Follow-Up [facility] Medicine Rheumatology [address] [facility] 5th [place] [address] [place] [address] Stephanie Blanton MD Comprehensive metabolic panel, CBC with auto differential 12/27/2024 Orders Only [facility] Primary Care at [address] [place] [address] Kmaila Parikh, RN CLINICAL REVIEW Fatigue, unspecified type (Primary Dx) from Last 3 Months Immunizations Immunization Administration Dates Next Due H1N1 All Forms 07/26/2009 Influenza, Quadrivalent, Jeanette l Culture-based MDCK, Preservative Free, Antibiotic Free, Intramuscular 04/01/2023,05/13/2022 Influenza, Quadrivalent, Spl it, Preservative Free, Intramuscular 04/27/2014 Influenza, Trivalent, IM (MDV) 05/11/2017,2010,06/26/2010 Influenza, Trivalent, Preser vative Free, Intramuscular 04/16/2024,06/20/2013 Influenza, Unspecified 04/03/2023 Influenza, Whole 04/26/2009 Pneumococcal Conjugate Pcv20 03/07/2022 Sars-CoV-2, Unspecified 11/20/2020 Tdap 01/18/2013 ZOSTER Recombinant 11/11/2022,04/04/2022 Surgical History Surgery Date Site/Laterality Comments APPENDECTOMY Medical History Medical History Date Comments RA (rheumatoid arthritis) Interstitial lung disease (HCC) Sjogren syndrome with lung involvement (HCC) Anemia Family History Medical History Relation Name Comments Alcohol abuse Father Aortic dissection Father Heart failure Father Hypertension Father Alcohol abuse Maternal Grandfather Kidney disease Maternal Grandmother Fibromyalgia Mother Scoliosis Mother Early Paternal Grandfather AR Heart disease Paternal Grandfather No Known Problems Paternal Grandmother Autoimmune disease Sister 1 MS No Known Problems Sister 2 Relation Name Status Comments Father Maternal Grandfather Maternal Grandmother Mother Alive Paternal Grandfather Paternal Grandmother Sister 1 Alive Sister 2 Alive Social History Tobacco Use Types Packs/Day Years Used Date Smoking Tobacco: Never Smokeless Tobacco: Never Alcohol Use Standard Drinks/Week Comments Never 0 (1 standard drink = 0.6 oz pur e alcohol) PHQ-2 Answer Date Recorded PHQ-2 Total Score (If total score is 3 or more points, staff should administer the PHQ-9) 0 03/15/2025 AUDIT-C Answer Date Recorded Q1: How often do you have a drink containing alcohol? Never 03/15/2025 Q2: How many drinks containi ng alcohol do you have on a typical day when you are drinking? Patient does not drink Q3: How often do you have si x or more drinks on one occasion? Never 03/15/2025 Comments No Sex and Gender Information Value Date Recorded Sex Assigned at Not on file Legal Sex Female 9:34 AM CDT Gender Identity Female 03/31/2024 9:37 AM CDT Sexual Orientation Straight 03/31/2024 9: 37 AM CDT Obstetrics History Last Filed Vital Signs Vital Sign Reading Time Taken Comments Blood Pressure 122/85 03/21/2025 7:44 AM CDT Pulse 68 03/21/2025 7:44 AM CDT Temperature 36.4 C (97.5 F) 03/21/2025 7:44 AM CDT Respiratory Rate 16 03/20/2025 7:55 AM CDT Oxygen Saturation 99% 03/15/2025 1:50 PM CDT Inhaled Oxygen Concentration - - Weight 67.7 kg (149 lb 3.2 oz) 03/21/2025 7:44 A M CDT Height 156.2 cm (5' 1.5) 03/21/2025 7:44 AM CDT Body Mass Index 27.73 03/21/2025 7:44 AM CDT Plan of Treatment Scheduled Procedures Name Priority Associated Diagnoses Date/Ti me FUSION CERVICAL ANTERIOR DISCECTOMY WITH INSTRUMENTATION Cervical disc disorder with radiculopathy of cervical region SPINAL CORD MONITORING Cervical disc disorder with radiculopathy of cervical region Health Maintenance Due Date Last Done Comments Cervical Cancer Screening 1970 Colon Cancer Screening-Colonoscopy 1970 Breast Cancer Screening-Mammogram 02/06/2018 02/06/2017 Influenza Vaccine (#1) 2025 , 04/03/2023, 04/01/2023, Additional history exists Hemoglobin A1C 05/02/2025 10/31/2024 DTaP/Tdap/Td Vaccine (2 - Td or Tdap) 10/24/2025 01/18/2013 Postponed from 01/18/2023 (Patient declined, but will receive in the future) Regular Well Visit/Exam 18-64 10/24/2025 10/24/2024, 10/24/2024 Lipid Panel 10/31/2025 10/31/2024, 08/27/2023 Depression Screening 03/15/2026 03/15/2025, 10/25/19 25 eGFR 03/20/2026 03/20/2025, 01/25, 01/23/2025, Additional history exists Pneumococcal vaccine <65 Completed 03/07/2022 Zoster Vaccine Completed 11/11/2022, 04/04/2022 Hepatitis C Screening Completed 03/13/2023, 022 Covid-19 Vaccine Completed 04/16/2024, , 03/10/2022, Additional history exists Hepatitis B Screening Completed 10/31/2024 Albumin Creatinine Ratio, Urine Discontinued Dilated Eye Exam Discontinued Foot Exam Discontinued Procedures Procedure Name Priority Date/Time Associated Diagnosis Comments EGFR Routine 03/20/2025 7:57 AM CDT Connective tissue disease Interstitial lung disease (HCC) Rheumatoid arthritis involving multiple sites with positive rheumatoid factor (HCC) DIFFERENTIAL AUTO Routine 03/20/2025 7:5 7 AM CDT Connective tissue disease Interstitial lung disease (HCC) Rheumatoid arthritis involving multiple sites with positive rheumatoid factor (HCC) CBC WITH AUTO DIFFERENTIAL Routine 03/20/2025 7:57 AM CDT Connective tissue disease Interstitial lung disease (HCC) Rheumatoid arthritis involving multiple sites with positive rheumatoid factor (HCC) COMPREHENSIVE METABOLIC PANEL Routine 03/20/2025 7:57 AM CDT Connective tissue disease Interstitial lung disease (HCC) Rheumatoid arthritis involving multiple sites with positive rheumatoid factor (HCC) EGFR Routine 02/20/2025 8:15 AM CDT Connective tissue disease Interstitial lung disease (HCC) Rheumatoid arthritis involving multiple sites with positive rheumatoid factor (HCC) DIFFERENTIAL AUTO Routine 02/20/2025 8:1 5 AM CDT Connective tissue disease Interstitial lung disease (HCC) Rheumatoid arthritis involving multiple sites with positive rheumatoid factor (HCC) CBC WITH AUTO DIFFERENTIAL Routine 02/20/2025 8:15 AM CDT Connective tissue disease Interstitial lung disease (HCC) Rheumatoid arthritis involving multiple sites with positive rheumatoid factor (HCC) COMPREHENSIVE METABOLIC PANEL Routine 02/20/2025 8:15 AM CDT Connective tissue disease Interstitial lung disease (HCC) Rheumatoid arthritis involving multiple sites with positive rheumatoid factor (HCC) CBC WITH AUTO DIFFERENTIAL Routine 01/23/2025 8:07 AM CDT Connective tissue disease Interstitial lung disease (HCC) Rheumatoid arthritis involving multiple sites with positive rheumatoid factor (HCC) COMPREHENSIVE METABOLIC PANEL Routine 01/23/2025 8:07 AM CDT Connective tissue disease Interstitial lung disease (HCC) Rheumatoid arthritis involving multiple sites with positive rheumatoid factor (HCC) IRON PROFILE W/ IBC Routine 12/29/2024 1 2:53 PM CDT Fatigue, unspecified type HEMOGLOBIN A1C Routine 10/31/2024 8:15 AM CDT Preventative health care Encounter for screening examination for impaired glucose regulation and diabetes mellitus LIPID PANEL Routine 10/31/2024 8:15 AM CDT Connective tissue disease Preventative health care Encounter for screening examination for impaired glucose regulation and diabetes mellitus HEPATITIS C ANTIBODY Routine 03/13/2023 10:21 AM CDT Rheumatoid arthritis involving multiple sites with positive rheumatoid factor (HCC) ILD (interstitial lung disease) (HCC) Connective tissue disease Sjogren's syndrome, with unspecified organ involvement from Last 3 Months or Most Recently Relevant to Health Maintenance Results * eGFR (03/20/2025 7:57 AM CDT) eGFR >90 >=60 mL/min/1. 73 m2 Comment: Interpretive Data Reference Interval Normal >/= 90 mL/min/1.73m2 Mildly decreased* 60 - 89 mL/min/1.73m2 Mildly to moderately decreased 45 - 59 mL/min/1.73m2 Moderately to severely decreased 30 - 44 mL/min/1.73m2 Severely decreased 15 - 29 mL/min/1.73m2 Kidney Failure < 15 mL/min/1.73m2 *Relative to young adult level Estimated glomerular filtration rate is determined by the 2020 CKD-EPI equation recommended by the National Kid[employer] (A Unifying Approach to GFR Estimation: Recommendations of the NKF-ASK Task Force on Reassessing the Inclusion of Race in Diagnosing Kidney Disease, JASN 2020). The CKD-EPI equation should not be used for patients with unstable renal function and has not been validated in children and those over 70. Current interpretive data was last reviewed 2021. Blood 03/20/2025 7:57 AM CDT 03/20/2025 10:10 PM CDT Stephanie Blanton MD LAB BLOOD ORDERABLES Fin al Result [facility] [id number] [address] Department [place] [address] * (ABNORMAL) Differential, auto (03/20/2025 7:57 AM CDT) Neutrophil abs 2.50 1.50 - 6.50 K/cumm Imm gran abs 0.01 0.00 - 0.10 K/cumm [facility] Lymphocyte abs 0.51(L) 0.80 - 3.30 K/cumm [facility] Monocyte abs 0.51 0.20 - 0.80 K/cumm [facility] Eosinophil abs 0.13 0.00 - 0.50 K/cumm [facility] Basophil abs 0.02 0.00 - 0.10 K/cumm [facility] Neutrophil pct 67.9 % [facility] Comment: Interpretive Data Percent cell count reference ranges are not reported, since discordance with absolute values may lead to misinterpretation of CBC data. Current Interpretive Data was last revised on 2017. Imm gran pct 0.3 % [facility] Comment: Interpretive Data Percent cell count reference ranges are not reported, since discordance with absolute values may lead to misinterpretation of CBC data. Current Interpretive Data was last revised on 2017. Lymphocyte pct 13.9 % [facility] Comment: Interpretive Data Percent cell count reference ranges are not reported, since discordance with absolute values may lead to misinterpretation of CBC data. Current Interpretive Data was last revised on 2017. Monocyte pct 13.9 % [facility] Comment: Interpretive Data Percent cell count reference ranges are not reported, since discordance with absolute values may lead to misinterpretation of CBC data. Current Interpretive Data was last revised on 2017. Eosinophil pct 3.5 % [facility] Comment: Interpretive Data Percent cell count reference ranges are not reported, since discordance with absolute values may lead to misinterpretation of CBC data. Current Interpretive Data was last revised on 2017. Basophil pct 0.5 % [facility] Comment: Interpretive Data Percent cell count reference ranges are not reported, since discordance with absolute values may lead to misinterpretation of CBC data. Current Interpretive Data was last revised on 2017. Blood 03/20/2025 7:57 AM CDT 03/20/2025 9:50 PM CDT us Stephanie Blanton MD LAB BLOOD ORDERABLES Fin al Result [facility] [id number] Department [place] [address] * (ABNORMAL) CBC with auto differential (03/20/2025 7:57 AM CDT) WBC 3.68(L) 3.80 - 9.90 K/cumm Hgb 10.5(L) 11.9 - 15.5 g/dL [facility] Hct 31.7(L) 35.6 - 45.5 % [facility] Plt 238 150 - 400 K/cumm [facility] MPV 9.5 9.1 - 12.3 fL [facility] RBC 3.24(L) 3.90 - 5.20 M/cumm [facility] MCV 97.8(H) 81.3 - 96.4 fL [facility] MCH 32.4 27.1 - 33.3 pg [facility] MCHC 33.1 32.3 - 35.7 g/dL [facility] RDW CV 12.2 11.1 - 14.9 % [facility] RDW SD 44.1 35.7 - 48.1 fL [facility] NRBC abs 0.00 0.00 - 0.01 K/cumm [facility] Blood 03/20/2025 7:57 AM CDT 03/20/2025 9:50 PM CDT Stephanie Blanton MD LAB BLOOD ORDERABLES Fin al Result [facility] [id number] Department [place] [address] * (ABNORMAL) Comprehensive metabolic panel (03/20/2025 7:57 AM CDT) Sodium 129(L) 135 - 145 mmol/L Potassium, pl 4.4 3.3 - 4.9 mmol/L [facility] Chloride 97 97 - 110 mmol/L [facility] CO2 22 22 - 32 mmol/L [facility] Anion gap 10 2 - 15 mmol/L [facility] BUN 14 6 - 25 mg/dL [facility] Creatinine 0.68 0.60 - 1.10 mg/dL [facility] Glucose 75 70 - 199 mg/dL [facility] Comment: Interpretive Data Fasting glucose >/= 126 mg/dl is diagnostic for diabetes. Fasting is defined as no caloric intake for at least 8 hours. Fasting glucose between 100 mg/dl to 125 mg/dl is diagnostic of prediabetes. In a patient with classic symptoms of hyperglycemia or hyperglycemic crisis, a random glucose >/= 200 mg/dl is diagnostic for diabetes. In the absence of unequivocal hyperglycemia, results should be confirmed by repeat testing. The classification and Diagnosis of Diabetes Diabetes Care 202; 46: S19-S40. Current interpretive data was last revised 2022. Calcium 8.9 8.5 - 10.3 mg/dL [facility] Bilirubin, total 0.3 0.1 - 1.2 mg/dL [facility] Protein, pl 7.6 6.5 - 8.5 g/dL [facility] Albumin 3.7 3.5 - 5.0 g/dL [facility] Alk phos 33(L) 40 - 130 Units/L [facility] ALT 10 7 - 45 Units/L [facility] AST 19 10 - 45 Units/L [facility] Blood 03/20/2025 7:57 AM CDT 03/20/2025 9:50 PM CDT Stephanie Blanton MD LAB BLOOD ORDERABLES Fin al Result [facility] [address] Department [place] [address] * eGFR (02/20/2025 8:15 AM CDT) eGFR >90 >=60 mL/min/1. 73 m2 Comment: Interpretive Data Reference Interval Normal >/= 90 mL/min/1.73m2 Mildly decreased* 60 - 89 mL/min/1.73m2 Mildly to moderately decreased 45 - 59 mL/min/1.73m2 Moderately to severely decreased 30 - 44 mL/min/1.73m2 Severely decreased 15 - 29 mL/min/1.73m2 Kidney Failure < 15 mL/min/1.73m2 *Relative to young adult level Estimated glomerular filtration rate is determined by the 2020 CKD-EPI equation recommended by the National Kidney Foundation (A Unifying Approach to GFR Estimation: Recommendations of the NKF-ASK Task Force on Reassessing the Inclusion of Race in Diagnosing Kidney Disease, JASN 2020). The CKD-EPI equation should not be used for patients with unstable renal function and has not been validated in children and those over 70. Current interpretive data was last reviewed 2021. Blood 02/20/2025 8:15 AM CDT 02/20/2025 3:01 PM CDT Stephanie Blanton MD LAB BLOOD ORDERABLES Fin al Result [facility] [address] [address] Department [place] [address] * (ABNORMAL) Differential, auto (02/20/2025 8:15 AM CDT) Neutrophil abs 2.32 1.50 - 6.50 K/cumm Imm gran abs 0.02 0.00 - 0.10 K/cumm [facility] Lymphocyte abs 0.48(L) 0.80 - 3.30 K/cumm [facility] Monocyte abs 0.46 0.20 - 0.80 K/cumm [facility] Eosinophil abs 0.13 0.00 - 0.50 K/cumm [facility] Basophil abs 0.03 0.00 - 0.10 K/cumm [facility] Neutrophil pct 67.3 % [facility] Comment: Interpretive Data Percent cell count reference ranges are not reported, since discordance with absolute values may lead to misinterpretation of CBC data. Current Interpretive Data was last revised on 2017. Imm gran pct 0.6 % [facility] Comment: Interpretive Data Percent cell count reference ranges are not reported, since discordance with absolute values may lead to misinterpretation of CBC data. Current Interpretive Data was last revised on 2017. Lymphocyte pct 14.0 % [facility] Comment: Interpretive Data Percent cell count reference ranges are not reported, since discordance with absolute values may lead to misinterpretation of CBC data. Current Interpretive Data was last revised on 2017. Monocyte pct 13.4 % [facility] Comment: Interpretive Data Percent cell count reference ranges are not reported, since discordance with absolute values may lead to misinterpretation of CBC data. Current Interpretive Data was last revised on 2017. Eosinophil pct 3.8 % [facility] Comment: Interpretive Data Percent cell count reference ranges are not reported, since discordance with absolute values may lead to misinterpretation of CBC data. Current Interpretive Data was last revised on 2017. Basophil pct 0.9 % [facility] Comment: Interpretive Data Percent cell count reference ranges are not reported, since discordance with absolute values may lead to misinterpretation of CBC data. Current Interpretive Data was last revised on 2017. Blood 02/20/2025 8:15 AM CDT 02/20/2025 2:56 PM CDT Stephanie Blanton MD LAB BLOOD ORDERABLES Fin al Result Performing Organization Address City/[facility] Co de Phone Number [facility] [address] [place] [address] * (ABNORMAL) CBC with auto differential (02/20/2025 8:15 AM CDT) WBC 3.44(L) 3.80 - 9.90 K/cumm Hgb 10.1(L) 11.9 - 15.5 g/dL [facility] Hct 29.8(L) 35.6 - 45.5 % [facility] Plt 225 150 - 400 K/cumm [facility] MPV 9.1 9.1 - 12.3 fL [facility] RBC 3.15(L) 3.90 - 5.20 M/cumm [facility] MCV 94.6 81.3 - 96.4 fL [facility] MCH 32.1 27.1 - 33.3 pg [facility] MCHC 33.9 32.3 - 35.7 g/dL [facility] RDW CV 12.1 11.1 - 14.9 % [facility] RDW SD 41.6 35.7 - 48.1 fL [facility] NRBC abs 0.00 0.00 - 0.01 K/cumm [facility] Blood 02/20/2025 8:15 AM CDT 02/20/2025 2:56 PM CDT Stephanie Blanton MD LAB BLOOD ORDERABLES Fin al Result Performing Organization Address [facility]/ZIP Co de Phone Number [facility] [address] [address] Department [place] [address] * (ABNORMAL) Comprehensive metabolic panel (02/20/2025 8:15 AM CDT) Sodium 129(L) 135 - 145 mmol/L Potassium, pl 4.2 3.3 - 4.9 mmol/L [facility] Chloride 97 97 - 110 mmol/L [facility] CO2 22 22 - 32 mmol/L [facility] Anion gap 10 2 - 15 mmol/L [facility] BUN 17 6 - 25 mg/dL [facility] Creatinine 0.72 0.60 - 1.10 mg/dL [facility] Glucose 79 70 - 199 mg/dL [facility] Comment: Interpretive Data Fasting glucose >/= 126 mg/dl is diagnostic for diabetes. Fasting is defined as no caloric intake for at least 8 hours. Fasting glucose between 100 mg/dl to 125 mg/dl is diagnostic of prediabetes. In a patient with classic symptoms of hyperglycemia or hyperglycemic crisis, a random glucose >/= 200 mg/dl is diagnostic for diabetes. In the absence of unequivocal hyperglycemia, results should be confirmed by repeat testing. The classification and Diagnosis of Diabetes Diabetes Care 202; 46: S19-S40. Current interpretive data was last revised 2022. Calcium 8.7 8.5 - 10.3 mg/dL [facility] Bilirubin, total 0.3 0.1 - 1.2 mg/dL [facility] Protein, pl 7.0 6.5 - 8.5 g/dL [facility] Albumin 3.7 3.5 - 5.0 g/dL [facility] Alk phos 28(L) 40 - 130 Units/L [facility] ALT 10 7 - 45 Units/L [facility] AST 16 10 - 45 Units/L [facility] Blood 02/20/2025 8:15 AM CDT 02/20/2025 2:56 PM CDT Stephanie Blanton MD LAB BLOOD ORDERABLES Fin al Result [facility] [address] Department [place] [address] * (ABNORMAL) CBC with auto differential (01/23/2025 8:07 AM CDT) White Blood Count 3.9 3.6 - 11.2 K/uL [facility] RBC 3.16(L) 3.63 - 4.92 M/uL [facility] Hemoglobin 10.6(L) 11.9 - 15.5 g/dL [facility] Hematocrit 29.7(L) 36.1 - 44.3 % [facility] Comment:Repeated and Verifie d MCV 94.0 80.0 - 97.6 fL [facility] MCH 33.4 26.7 - 33.7 pg [facility] MCHC 35.5 32.7 - 35.5 g/dL [facility] RBC Dist Width 13.0 12.3 - 17.0 % [facility] Platelet Count 206 140 - 440 K/uL [facility] MPV 7.8 6.8 - 10.4 fL [facility] Neutrophils % 70.5 38.7 - 74.5 % [facility] Lymphocyte % 11.2(L) 20.0 - 54.3 % [facility] Monocytes % 14.9(H) 4.3 - 13.5 % [facility] Eosinophils % 2.9 0.0 - 6.0 % [facility] Basophil % 0.5 0.0 - 3.0 % [facility] Absolute Neutrophil 2.8 1.8 - 6.6 K/uL [facility] Absolute Lymphocyte 0.4(L) 0.8 - 3.3 K/uL [facility] Absolute Monocyte 0.6 0.2 - 1.2 K/uL [facility] Absolute Eosinophil 0.1 0.0 - 0.5 K/uL [facility] Absolute Basophil 0.0 0.0 - 0.2 K/uL [facility] Nucleated RBC % 0.0 0.0 - 0.4 /100 WBC [facility] Blood 01/23/2025 8:07 AM CDT 01/23/2025 9:30 AM CDT Stephanie Blanton MD LAB BLOOD ORDERABLES Fin al Result [facility] * (ABNORMAL) Comprehensive metabolic panel (01/23/2025 8:07 AM CDT) Pathologist [facility] Total Protein 7.2 6.1 - 8.4 g/dL [facility] Albumin 3.7 3.5 - 5.2 g/dL [facility] Calcium 8.9 8.6 - 10.3 mg/dL [facility] BUN 16 7 - 23 mg/dL [facility] Total Bilirubin 0.28 0.20 - 1.40 mg/dL [facility] Alk Phos, Total 29(L) 35 - 129 IU/L [facility] Comment:Repeated and Verifie d AST (SGOT) 14 11 - 47 IU/L [facility] ALT (SGPT) 11 6 - 53 IU/L [facility] Creatinine 0.74 0.60 - 1.10 mg/dL [facility] Sodium 127(L) 135 - 145 mmol/L [facility] Comment:Repeated and Verifie d Potassium 4.3 3.3 - 5.1 mmol/L [facility] Chloride 96 95 - 107 mmol/L [facility] CO2 Content 22 21 - 29 mmol/L [facility] Glucose 79 64 - 99 mg/dL [facility] Comment: NONFASTING GLUCOSE RANGE = 64-199 mg/dL FASTING GLUCOSE 64 - 99 = NORMAL FASTING GLUCOSE 100 - 125 = IMPAIRED FASTING GLUCOSE FASTING GLUCOSE >=126 = PROVISIONAL DIAGNOSIS OF DIABETES eGFR >90.0 >60.0 mL/min/1.7 3 m2 [facility] Blood 01/23/2025 8:07 AM CDT 01/23/2025 9:30 AM CDT Stephanie Blanton MD LAB BLOOD ORDERABLES Fin al Result [facility] * Iron profile w/ IBC (12/29/2024 12:53 PM CDT) [facility] Iron Bind.Cap.(TIBC) 285 250 - 450 ug/dL [facility] - 01 UIBC 208 131 - 425 ug/dL [facility] - 01 Iron 77 27 - 159 ug/dL [facility] - 01 Iron saturation 27 15 - 55 % [facility] - 01 Blood 12/29/2024 12:5 3 PM CDT 12/29/2024 Narrative [facility] - 12/30/2024 8:11 AM CDT Performed at: [address] [id number] Pharmacy Customer Care Specialist: Skinny Cabrera PhD, Phone: [phone] Kamila Parikh NP LAB BLOOD ORDERABLES nal Result Performing Organization Address [facility]/ZIP Co de Phone Number [facility] - * (ABNORMAL) Hemoglobin A1c (10/31/2024 8:15 AM CDT) [facility] HbA1c 4.9(L) 5.1 - 5.6 % [facility] Comment: HBA1C 5.1 - 5.6 = NORMAL HBA1C 5.7 - 6.4 = PREDIABETES HBA1C >=6.5 = PROVISIONAL DIAGNOSIS OF DIABETES Estimated Average Glucose 94 mg/dL [facility] Blood 10/31/2024 8:15 AM CDT 10/31/2024 9:50 AM CDT Kamila Parikh NP LAB BLOOD ORDERABLES nal Result [facility] * (ABNORMAL) Lipid panel (10/31/2024 8:15 AM CDT) [facility] Triglycerides 97 <150 mg/dL [facility] Comment: Desirable: <150 mg/dL, fasting <175 mg/dL, non-fasting Persistently elevated triglycerides may enhance atherosclerotic cardiovascular disease. Total Cholesterol 148 <200 mg/dL [facility] Total HDL-C Direct 42(L) >50 mg/dL [facility] Comment: A low HDL-C may be inidcative of metabolic syndrome and enhance atherosclerotic cardiovascular disease risk. Non-HDL cholesterol 106 <220 mg/dL [facility] [place] LDL Chol 87 <190 mg/dL [facility] 10/31/2024 8:15 AM CDT 10/31/2024 9:50 AM CDT Narrative [facility] - 10/31/2024 2:23 PM CDT Current interpretive data was last updated June 28, 2021. For adults ages 40-79, the ACC/AHA recommends discussing your 10-year atherosclerotic cardiovascular disease risk with your health care provider. https://www.acc.org/ASCVDApp Kamila Parikh NP LAB BLOOD ORDERABLES Fi nal Result [facility] * Hepatitis C antibody (03/13/2023 10:21 AM CDT) Hep C Ab Nonreactive Nonreactive [facility] Comment:Antibodies to HCV no t detected. Does NOT exclude the possibility of recent exposure to HCV. Current interpretive data was last revised on 22 Blood 03/13/2023 10:2 1 AM CDT 03/13/2023 11:05 AM CDT Nae Graham MD LAB MICROBIOLOGY - GENERAL ORD ERABLES Final Result [facility] Department [place] [address] from Last 3 Months or Most Recently Relevant to Health Maintenance Insurance [facility] Care Teams Tooler Relationship Specialty Start Date End Date Kamila Parikh RN CLINICAL REVIEW [address] [place] [address] DR RAMIREZ [address] [place] [id number] PCP - General Family Medicine 10/24/24 Stephanie Blanton MD [address] [address] Fellow Rheumatology 03/03/24
--- OUTSIDE RECORDS SUMMARY | 2025-03-29 09:12 | XMS_ITS | Clinical Summary ---
Author Organization [facility] Address [address] [place] [id number] Phone Care Team Providers Care Machine Repairer Maintenance Name Role Phone ShahzadMj brantley DO Primary Care Provider [phone] Allergies Active Allergy Reactions Criticality Noted Date Comments Prochlorperazine Other (see comments) 2 Facial swelling Medications folic acid (FOLVITE) 1 MG tablet Take 1,000 mcg by mouth 1 (one) time each day 2 Active losartan (COZAAR) 100 MG tablet 2 Active MAGnesium-Oxide 400 (241.3 Mg) MG tablet Take 400 mg by mouth 1 (one) time each day 2 Active metoprolol succinate XL (TOPROL-XL) 100 MG 24 hr tablet 2 Active ondansetron ODT (ZOFRAN-ODT) 4 MG dispersible tablet DISSOLVE ONE TABLET BY MOUTH EVERY 6 HOURS NEEDED FORNAUSEA AND VOMITING 2 Active pantoprazole (PROTONIX) 40 MG EC tablet 2 Active thiamine (VITAMIN B-1) 100 MG tablet Take 100 mg by mouth 1 (one) time each day in the morning 2 Active venlafaxine XR (EFFEXOR-XR) 75 MG 24 hr capsule 2 Active albuterol HFA (PROVENTIL HFA) 108 (90 Base) MCG/ACT inhaler INHALE 1 TO 2 PUFFS BY MOUTH EVERY 4 TO 6 HOURS NEEDED FOR SHORTNESS OF BREATH OR WHEEZING 2 Active Symbicort 160-4.5 MCG/ACT inhaler INHALE 2 PUFFS BY MOUTH EVERY 12 HOURS. RINSE MOUTH AND SPIT 2 Active eszopiclone (LUNESTA) 1 MG tablet TAKE 1 TABLET BY MOUTH ONCE 30 TO 45 MINUTES PRIOR TO BEDTIME FOR SLEEP STUDY 2 Active MAGnesium-Oxide 400 (240 Mg) MG tablet Take 1 tablet by mouth 1 (one) time each day 2 Active pilocarpine (SALAGEN) 5 MG tablet TAKE 1 TABLET BY MOUTH ONCE DAILY THEN INCREASE TO 1 TABLET BY MOUTH EVERY 12 HOURS TOLERATED THEN 1 TABLET BY MOUTH EVERY 8 HOURS 2 Active predniSONE (DELTASONE) 5 MG tablet 2 Active benzonatate (TESSALON) 100 MG capsule TAKE 1 CAPSULE BY MOUTH THREE TIMES DAILY NEEDED FOR COUGH 2 Active furosemide (LASIX) 20 MG tablet TAKE 1 TABLET(20 MG) BY MOUTH EVERY DAY 30 tablet 3 2 Active Active Problems Problem Noted Date Diagnosed Date Interstitial pulmonary disease 04/04/2022 Rheumatoid arthritis of multiple joints 04/04/20 22 Disorder of connective tissue 03/19/2022 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 Immunizations Immunization Administration Dates Next Due Pneumococcal Conjugate 03/07/2022 Sars-cov-2, Unspecified 11/20/2020 Zoster Recombinant 04/04/2022 Family History Medical History Relation Comments Heart disease Father Hypertension Father Fibromyalgia Mother Hypothyroidism Mother Relation Status Comments Father Mother Social History Tobacco Use Types Packs/Day Years Used Date Smoking Tobacco: Never Smokeless Tobacco: Never Tobacco Cessation:Counseling Given: Not Answered Alcohol Use Standard Drinks/Week Comments Yes 0 (1 standard drink = 0.6 oz pur e alcohol) 12 white claws a day Comments Unknown Sex and Gender Information Value Date Recorded Sex Assigned at Not on file Legal Sex Female 8:10 AM MDT Gender Identity Not on file Sexual Orientation Not on file Last Filed Vital Signs Vital Sign Reading Time Taken Comments Blood Pressure 126/78 06/05/2022 10:40 AM PAYROLL ADMINISTRATIVE ASSISTANT Pulse - - Temperature 36.5 C (97.7 F) 06/05/2022 10:40 AM PAYROLL ADMINISTRATIVE ASSISTANT Respiratory Rate 18 06/05/2022 10:40 AM PAYROLL ADMINISTRATIVE ASSISTANT Oxygen Saturation - - Inhaled Oxygen Concentration - - Weight 115 kg (252 lb 9.6 oz) 06/05/2022 10:40 A M PAYROLL ADMINISTRATIVE ASSISTANT Height 160 cm (5' 3) 06/05/2022 10:40 AM PAYROLL ADMINISTRATIVE ASSISTANT Body Mass Index 44.75 06/05/2022 10:40 AM PAYROLL ADMINISTRATIVE ASSISTANT Plan of Treatment Health Maintenance Due Date Last Done Comments Influenza Vaccine (#1) [address] [place] [address] Care Teams Machine Repairer Maintenance Relationship Specialty Start Date End Date Mj Faith DO [address] [place] [id number] PCP - General Internal Medicine 11/18/21
--- OUTSIDE RECORDS SUMMARY | 2025-03-29 09:12 | XMS_ITS | Encounter Summary ---
Author Organization [facility] Address [address] [place] [address] Phone Care Team Providers Care Physical Therapy Coordinator Name Role Phone Felipa Bernard CODING AND REIMBURSEMENT SPECIALIST Primary Care Provider [phone] Stephanie Blanton MD Unavailable [phone] Kamila Parikh CODING AND REIMBURSEMENT SPECIALIST Primary Care Provider Encounter Details Date Type Department Care Team (Latest Contact Info) Description 04/10/2023 Orders Only [facility] Scanning, Provider Social History Tobacco Use Types Packs/Day Years Used Date Smoking Tobacco: Never Smokeless Tobacco: Never Comments Unknown Sex and Gender [...] Procedure Name Priority Date/Time Associated Diagnosis Comments CARDIOLOGY DOCUMENT SCAN 04/10/2023 documented in this encounter Results * CARDIOLOGY DOCUMENT SCAN (04/10/2023) Anatomical Region Laterality Modality Other us Provider Scanning CV CARDIAC SERVICES PROCEDURES Final Result documented in this encounter Visit Diagnoses Not on filedocumented in this encounter Care Teams Physical Therapy Coordinator Relationship Specialty Start Date End Date Felipa Bernard, GENEVA PCP - General Nurse Practitioner 12/04/21 10/23/24 Kamila Parikh NP [address] [place] [address] DR RAMIREZ [address] [place] [address] PCP - General Family Medicine 10/24/24 Stephanie Blanton MD [address] [address] Fellow Rheumatology 03/03/24 documented as of this encounter
--- OUTSIDE RECORDS SUMMARY | 2025-03-29 09:12 | XMS_ITS | Patient Health Record ---
Author Organization [facility] Address [address] [address] Care Team Providers Care Property Staff Accountant Name Role Phone Greg Montano Unavailable [phone] Allergies Allergen (clinical drug ingredient) Drug/Non Drug Allergy documented on EMR Reaction Allergy Type Onset Date Status Compazine tongue swelling Drug Allergy A ctive rituximab Rituximab swelling Drug Allergy Active Reason For Referral No Information Medications Medication SIG (Take, Route, Frequency, Duration) Notes Start Date End Date Status Lasix 20 MG 1 tablet Orally Once a day; Duration: 30 day(s) 10/30/2023 Active Lexapro 10 MG 1 tablet Orally Once a day; Duration: 30 day(s) 10/30/2023 Active Estradiol 2 MG TAKE 1 TABLET BY JACQUELINE TH DAILY Oral; Duration: 30 Days Active Wegovy 2.4 MG/0.75ML ADMINISTER 2.4 MG U NDER THE SKIN WEEKLY Subcutaneous; Duration: 28 Days Active Progesterone 100 MG TAKE ONE CAPSULE BY MOUTH DAILY Oral; Duration: 30 Days Active Pantoprazole Sodium 40 MG Oral; Duration: 10 Days Active Losartan Potassium 100 MG TAKE 1 TABLET BY MOUTH DAILY Oral; Duration: 30 Days Active Social History Tobacco Use: Social History Observation Description Date Details (start date - stop date) Never Smoker NA - NA Tobacco Use/Smoking Question Answer Notes Are you a nonsmoker Problems Problem Type SNOMED Code ICD Code Onset Dates Problem Status W/U Status Risk Notes Problem Cervical disc disorder with radiculopathy (702618713) Cervical disc disorder with radiculopathy, cervicothoracic region (M50.13) Active confirmed Problem Pain in thoracic spine (092845742) Pain in thoracic spine (M54.6) Active confirmed Problem Cervical radiculopathy (78932620) Cervical radiculopathy (M54.12) Active confirmed Vital Signs Heart Rate 73 /min 08/22/2024 Temperature 97.7 degrees Fahrenheit 08/22/2024 Respiratory Rate 18 /min 08/22/2024 Blood pressure diastolic 73 mm Hg 08/22/2024 Height 63 in 08/22/2024 Blood pressure systolic 105 mm Hg 08/22/2024 Weight 168 lbs 08/22/2024 BMI 29.76 kg/m2 08/22/2024 Encounters Encounter Location Date Provider Diagnosis [place] [facility] [address] [place] [address] 08/22/2024 Greg Cajigal Cervical radiculopat hy M54.12 ; Cervical disc disorder with radiculopathy, cervicothoracic region M50.13 and Pain in thoracic spine M54.6 Assessments Encounter Date Diagnosis (ICD Code) Assessment Notes Treatment Notes Treatment Clinical Notes Section Notes 08/22/2024 Cervical radiculopathy (ICD-10 - M54.12) 08/22/2024 Cervical disc disorder with radiculopathy, cervicothoracic region (ICD-10 - M50.13) 08/22/2024 Pain in thoracic spine (ICD-10 - M54.6) 08/22/2024 Other Plan:1. We will not pursue opioid therapy in this patient.2. Recommend to remain as active as possible.3. Recommend to take ibuprofen as needed for pain.4. History of physical therapy and hourly caregiver for greater than 6 weeks with persistent pain unfortunately.5. MRI cervical spine reviewed showing multiple levels of facet arthritis and foraminal stenosis. Please see scanned documents for more details6. History of midline cervical JASBIR with 90% improvement in upper extremity radicular pain. Repeat as necessary per patient7. Consider diagnostic thoracic medial branch blocks/RFA for axial mid back pain.8. History of cervical medial branch RFA with >50% improvement in pain for more than 6 months. Repeat today with sedation. NPO greater than 8 hours and has a stud driver. Recommend to ice neck 20 minutes on 20 minutes off for the next 3 to 4 days. Recommended take [id number] NSAIDs as needed for postop pain9. Continues to follow with neurosurgery 10. Return to clinic as needed Plan Of Treatment No Information Medical (General) History Medical History History ICD Code hypertension rheumatoid arthritis Surgical History Surgery Date(Month/Year) pins right hand 1983 pins removed 1983 appendectomy 1990
== END 2025-03-29 08:43 | disposition home or self-care (01) ==
LOC: ANHFOHIMG 08:49
PROVIDERS: Visit Provider Obstetrics & Gynecology
DX: Z12.31 Encounter for screening mammogram for malignant neoplasm of breast (principal)
CPT/HCPCS: 77063; 77067